=== PATIENT | male | born 1955 | race Caucasian/White ===

== ENCOUNTER 2022-04-19 02:31 | Inpatient (IN) | payer MEDICARE, MEDICAID, SELFPAY ==
[2022-04-19] VITALS (10 sets, daily range): BP systolic 101–131; BP diastolic 58–67; PULSE 83–112; RESP 16–20; TEMP 35.9–36.8; O2SAT 93–100; BMI 31.2
--- NOTE | ~2022-04-19 | CT_ITS ---
EXAMINATION: CTA chest abdomen pelvis DATE: 04/19/2022 09:05 INDICATION: Hemolytic anemia. TECHNIQUE: Computed tomographic angiography (CTA) of the chest, abdomen, and pelvis was performed wit h 100 mL Omnipaque-350 intravenous contrast. Automated exposure control and iterative reconstruction technique were employed. The dose-length product was 979.50 mGy-cm. Maximum intensity projection 3D-r econstructions of the aorta and other arteries were constructed by the technologist on a separate wor kstation. COMPARISON: None. FINDINGS: CHEST CTA: The lungs demonstrate smooth septal thickening, consistent with mild pulmonary edema. There is mild b ronchiectasis in the inferior lungs. There is mild atelectasis on the right. A calcified left lung no dule and calcified left hilar and mediastinal lymph nodes are consistent with old granulomatous disea se. There are a few pulmonary nodules measuring up to 4 mm, likely benign. No pleural effusion. The h eart size is normal. No pericardial effusion. There is mild aortic atherosclerosis. There is no pulmo nary embolus. There is moderate thoracic spondylosis. ABDOMEN AND PELVIS CTA: Calcifications in the liver and spleen are consistent with old granulomatous disease. There is mild s plenomegaly measuring 14.1 cm. The gallbladder, spleen, and pancreas are normal. There are cysts in t he kidneys measuring up to 14 mm on the right. There is diverticulosis of the colon without evidence of diverticulitis. There are no dilated loops of bowel. The appendix is normal. There are no patholog ically enlarged lymph nodes. There is no free intraperitoneal fluid. There is mild aortic atheroscler osis. There is no significant stenosis of celiac axis, superior mesenteric artery, the renal arteries , or inferior mesenteric artery. There is mild lumbar spondylosis. There is a benign bone island in L 5 vertebral body. IMPRESSION: 1. Mild pulmonary edema. 2. Mild aortic atherosclerosis. No aneurysm or dissection. 9 3. Mild splenomegaly. Reviewed, dictated and finalized at location A.
--- NOTE | ~2022-04-19 | XR_ITS ---
EXAMINATION: XR chest 2V DATE: 04/19/2022 09:31 INDICATION: Acute anemia TECHNIQUE: PA and lateral views of the chest are obtained. COMPARISON: None available FINDINGS: There are minimal interstitial opacities of the lungs. No pleural effusion or pneumothorax. The cardiomediastinal silhouette is normal. There is moderate thoracic spondylosis. IMPRESSION: 1. Mild pulmonary edema. Reviewed, dictated and finalized at location B. IMPRESSION: 1. Mild pulmonary edema.
--- NOTE | ~2022-04-19 | XR_ITS ---
EXAMINATION: XR chest 1V portable DATE: 04/24/2022 08:36 INDICATION: Pulmonary edema. TECHNIQUE: A single frontal view of the chest was obtained. COMPARISON: Chest 2 views 04/19/2022, chest CT 04/19/2022 FINDINGS: A calcified left lung nodule and calcified left hilar lymph nodes are consistent with old g ranulomatous disease. No pleural effusion or pneumothorax. The heart size is normal. IMPRESSION: 1. No acute cardiopulmonary disease. Reviewed, dictated and finalized at location A.
--- NOTE | ~2022-04-19 | US_ITS ---
EXAMINATION: US abdomen limited DATE: 04/19/2022 09:36 INDICATION: Right upper quadrant pain TECHNIQUE: Multiple grayscale and Doppler ultrasound images of the abdomen were obtained. COMPARISON: CT from today FINDINGS: The head, body, and tail of the pancreas are normal. The liver demonstrates increased echog enicity, heterogenous echotexture, and decreased through transmission. No surface nodularity. Normal hepatopetal flow in the main portal vein. The gallbladder is normal with no abnormal wall thickening, pericholecystic fluid or stones. The normal common bile duct measures 4 mm. There was no sonographic Hampton sign. IMPRESSION: 1. Diffuse hepatic steatosis. Reviewed, dictated and finalized at location B.
--- NOTE | 2022-04-19 02:20 | ADMGEN ---
This patient, Zheng Martinez, was admitted to [facility] Surg Room 301-01. Patient/family oriented to hospital policies and general routines including ID bracelet, bed and alarms, visiting hours, pain management, procedures, bathroom and other care routines, personal items, smoking policy, room service/diet, and visiting hours. Information on how to activate the Rapid Response Team has been discussed. Patient/Family are encouraged to report perceived risks to care and to ask questions if they do not understand what they are told or what they should do.
--- NOTE | 2022-04-19 02:33 | ECG_ITS ---
Measurements Intervals [place] Rate: 100 P: 15 WA: 176 QRS: -15 QRSD: 108 T: 74 QT: 313 QTc: 405 Interpretive Statements SINUS TACHYCARDIA NONSPECIFIC T-WAVE ABNORMALITY- DIFFUSE LEADS BORDERLINE ECG NO PREVIOUS ECG AVAILABLE FOR COMPARISON Electronically Signed On 04-19-2022 20:49:28 CDT by Jovani Holbrook D.O.
[2022-04-19 03:49] LABS: Immature Reticulocyte Fraction 13.2 % (3.0-15.9); Reticulocyte Percent 2.71 % (0.7-4.3); Reticulocytes Absolute 0.05 B/L (32.2-175.7)
[2022-04-19 04:00] LABS: Alanine Aminotransferase 42 U/L (6-50); Albumin Level 3.6 g/dL (3.5-5.1); Alkaline Phosphatase 38 U/L (38-126); Anion Gap 10 mmol/L (8-16); Aspartate Amino Transferase 80 U/L (17-59); Bilirubin,Total 6.5 mg/dL (0.2-1.3); Blood Urea Nitrogen 29 mg/dL (9-20); Calcium 9.3 mg/dL (8.4-10.2); Carbon Dioxide 21 mmol/L (22-30); Chloride 106 mmol/L (98-107); Estimated CRCL calculation 66 ml/min; Estimated Glomerular Filt Rate > 60; Glucose 220 mg/dL (65-110); Lactate Dehydrogenase 924 U/L (120-246); Potassium 3.7 mmol/L (3.4-5.0); Sodium 137 mmol/L (137-145)
[2022-04-19 04:01] LABS: INR 1.4; Prothrombin Time 16.5 Seconds (11.1-14.7)
[2022-04-19 04:06] LABS: Transferrin 173 mg/dL (206-381)
[2022-04-19 04:38] LABS: Add Urine Microscopic? YES; Appearance Urine Turbid (Clear); Bilirubin Urine 1+ (Negative); Blood Urine 1+ (Negative); Color Urine Brown (Yellow); Glucose Urine UA Trace mg/dL (Negative); Ketones Urine Trace mg/dL (Negative); Leukocyte Esterase Ur Negative LEU/UL (Negative); Nitrate Urine Positive (Negative); Protein Urine Negative (Negative); pH Urine 5.5 (5.0-9.0)
[2022-04-19 04:40] LABS: Bacteria Urine Trace /hpf; Mucus Urine Rare /lpf
[2022-04-19 04:47] LABS: Iron 241 ug/dL (49-181)
[2022-04-19 04:56] LABS: Percent Iron Saturation 88 % (20-50)
[2022-04-19 06:22] LABS: Ferritin > 2000.00 ng/mL (11.1-264)
[2022-04-19] MEDS: hydroCHLOROthiazide 25 MG TABLET PO (08:22)
[2022-04-19] MEDS: FENOFIBRATE 160 MG TABLET PO (08:22)
[2022-04-19] MEDS: METOPROLOL TARTRATE 50 MG TAB PO ×2 (08:23→21:27)
[2022-04-19] MEDS: lisinopriL 20 MG TABLET PO (08:23)
[2022-04-19 08:27] LABS: INR 1.4; Prothrombin Time 16.2 Seconds (11.1-14.7)
[2022-04-19 08:28] LABS: Partial Thromboplastin Time 29.5 SECONDS (22.3-36.8)
[2022-04-19 08:47] LABS: Basophils Absolute Auto 0.1 K/mm3 (0.0-0.1); Basophils Percent Auto 0.6 % (0.2-1.2); Eosinophils Absolute Auto 0.8 K/mm3 (0-0.3); Eosinophils Percent Auto 5.3 % (0-4.4); Immature Granulocyte Absolute 0.13 K/mm3 (0.00-0.031); Immature Granulocyte Percent A 0.9 % (0-0.5); Lymphocytes Absolute Auto 2.77 K/mm3 (0.9-3.2); Lymphocytes Percent Auto 18.2 % (18.3-44.2); Mean Corpuscular HGB Conc 36.4 g/dl (32-36); Mean Corpuscular Hemoglobin 32.7 pg (26-34); Mean Corpuscular Volume 89.8 fl (80-100); Mean Platelet Volume 11.7 fl (7.4-10.4); Monocytes Absolute Auto 0.7 K/mm3 (0.1-0.6); Monocytes Percent Auto 4.6 % (2.6-8.5); Neutrophils Absolute Auto 10.7 K/mm3 (1.3-6.7); Neutrophils Percent Auto 70.4 % (45.5-73.1); Platelet Count Result 196 k/mm3 (150-375); Red Blood Count 1.96 M/mm3 (4.6-6.20); Red Cell Distribution Width 14.6 % (11.5-14.5); White Blood Count 15.2 K/mm3 (4.5-10.0)
[2022-04-19 08:52] LABS: Hematocrit 17.6 % (42.0-52.0); Hemoglobin 6.4 g/dL (14.0-18.0)
[2022-04-19 09:58] LABS: Hepatitis B Surface Antigen Negative (Negative)
[2022-04-19 10:00] LABS: HAV RESULT Negative (Negative); Hepatitis B Core IgM Result Negative (Negative)
--- NOTE | 2022-04-19 10:11 | PM.IMHP ---
H&P: HPI History of Present Illness Date/Time: 04/19/22 0830 Chief Complaint: Blood in urine and yellow skin, transferred from outside hospital concerns for hemolytic anemia Narrative: This 66-year-old male patient with significant past medical history of hypertension, hyperlipidemia, nephrolithiasis was transferred from an outside facility to our hospital throughout the evening hours with complaints of a potential acute hemolytic anemia. Pt. reports that on , now 4 days ago, he had a fever and chills during the night hours and then noticed bright red blood in his urine for three days. Only yesterday did he start to notice a yellowing of his skin. He presented to the ER at [facility] and was evaluated with findings of an acute UTI with WBC count of 18.3 as well as Hgb of 8.3, lactic acid of 3.38, procalcitonin of 2.[address] of the abdomen and pelvis that was performed there showed no acute findings except for mild fatty liver. His bilirubin, however, was noted to be 9.3, raising concern for a possible Acute Hemolytic Anemia. He was transferred to our facility for continued evaluation, treatment and development of definitive POC with Dr. Malave. He was treated at outside facility with Rocephin and Levaquin. Currently he denies any pain, but his repeat CBC and Bilirubin returned w/Hgb of 6.4 and Bilirubin of 6.5 with LDH of 924, and D-dimer 2.3. Haptoglobin is still pending and Retic count is low. Dr. Malave is consulted and CTA of Chest, abdomen and pelvis is ordered as is US of RUQ. Patient currently denies any chest pain, dyspnea, nausea, vomiting, diarrhea, urinary symptoms or complaints of headache, dizziness or lightheadedness. Review of Systems Review of Systems: All systems reviewed & are unremarkable except as noted in HPI and below PMFSH Past Medical History Medical History (Updated 04/19/22 @ 10:49 by TITUS Barron) Hypertension Hypertriglyceridemia Nephrolithiasis Family History Family History Father Heart attack Hypertension Mother Heart attack Father No problems noted. Social History Social History Smoking status: Never smoker Alcohol intake: current Drinks per week: 12 Substance use: never Spiritual care concerns: No Meds Home Medications and Allergies Home Medications Medication Instructions Recorded Confirmed Type fenofibrate 160 mg tablet 160 mg PO DAILY 04/19/22 04/19/22 History lisinopril 20 1 tablet PO DAILY 04/19/22 04/19/22 History mg-hydrochlorothiazide 25 mg tablet metoprolol tartrate 100 mg tablet 50 mg PO BID 04/19/22 04/19/22 History Allergies Allergy/AdvReac Type Severity Reaction Status Date / Time No Known Allergies Allergy Verified 04/19/22 03:28 Vital Signs Vital Signs - 24 hr 04/19/22 02:31 04/19/22 08:00 04/19/22 08:23 Temperature 98.2 F Pulse Rate 108 H 108 H Respiratory Rate 16 Blood Pressure 129/64 Pulse Oximetry 100 Oxygen Delivery Room Air Exam Const: General: comfortable and no acute distress Other: Obese male patient, sitting on the side of his bed at this time in no acute distress. HENMT: General nose exam: Normal nares present and no epistaxis Mouth: Yes moist mucous membranes Eyes: Sclera: scleral abnormality diffuse (Icterus noted.) Pupils: Equal, round and reactive pupils present EOM: EOMs intact bilaterally Neck: Neck: supple and no JVD Lymphatic: lymphadenopathy not noted Chest: Other: Not tender to palpation. Resp: Effort & Inspection: normal respiratory effort Auscultation: clear to auscultation bilaterally Cardio: Rate: tachycardic Rhythm: regular rhythm Heart sounds: no gallops, no murmurs and no rubs GI: Inspection: non-distended GI Palp: Yes Soft to palpation, No Tenderness to palpation present (GI), No Guarding due to palpation present (GI) an
[2022-04-19 10:17] LABS: Mean Corpuscular HGB Conc 36.1 g/dl (32-36); Mean Corpuscular Volume 88.8 fl (80-100); Mean Platelet Volume 11.4 fl (7.4-10.4); Platelet Count Result 199 k/mm3 (150-375); Red Blood Count 1.78 M/mm3 (4.6-6.20); Red Cell Distribution Width 15.3 % (11.5-14.5); White Blood Count 15.3 K/mm3 (4.5-10.0)
[2022-04-19 10:29] LABS: Hemoglobin 5.7 g/dL (14.0-18.0)
[2022-04-19 10:30] LABS: Hematocrit 15.8 % (42.0-52.0)
[2022-04-19 10:32] LABS: Hepatitis C Virus Antibody Negative (Negative)
[2022-04-19 11:06] LABS: Bilirubin Indirect 4.4 mg/dL (0-1.1)
[2022-04-19] MEDS: SODIUM CHLORIDE 0.9% IV 250 ML 30 ML IV CONT (11:33)
--- NOTE | 2022-04-19 12:37 | PDONCCN ---
HPI - Date of Consult Date/Time: 04/19/22 12:37 Requesting Physician: TITUS Barron Primary Care Provider: UNKNOWN,DOCTOR - Consult Narrative Reason for consult: Hemolytic anemia Narrative: Zheng Martinez is a 66 year old male with history of kidney stone 15 years ago transferred from [facility] where he came in with for tiredness and fatigue started a day before admission with some jaundice. He was having some intermittent hematuria for last couple of days which he thought was due to the kidney stone history. His hemoglobin was 8 at outside hospital with elevated bilirubin of 9. We decided to transfer him here due to hemolytic anemia and worsening of his symptoms. CT scan chest abdomen and pelvis showed mild pulmonary edema with mild splenomegaly. Abdominal ultrasound showed diffuse hepatic steatosis. Labs showed hemoglobin of 6.4 now dropped to 5.7. He is still have hematuria. Other labs showed elevated WBC count of 15.2 and normal platelet of 139391. Neutrophil was normal at 70%. Reticulocyte count % was 2.71. D-dimer was elevated at 2.3. Iron level was elevated at 240 once a saturation of 88%. LDH was high at 924 with elevated total bilirubin of 6.4 and indirect bilirubin of 4.4. Review of Systems - Review of Systems All systems reviewed & are unremarkable except as noted in HPI and [facility] Medical History: Medical History (Last Updated 04/19/22 @ 10:28 by TITUS Barron) Hypertension Hypertriglyceridemia Nephrolithiasis Family History: Family History (Last Reviewed 04/19/22 @ 10:21 by TITUS Barron) Father Heart attack Hypertension Mother Heart attack Father No problems noted. - Social History Social History: Social History (Last Reviewed 04/19/22 @ 10:21 by TITUS Barron) Alcohol Use: Alcohol intake: current Drinks per week: 12 Substance Use: Substance use: never Others: Spiritual care concerns: No Smoking Status: Smoking status: Never smoker Exam - Vital Signs Vital Signs - 24 hr 04/19/22 02:31 04/19/22 08:00 04/19/22 08:23 Temperature 36.8 C Pulse Rate 108 H 108 H Respiratory Rate 16 Blood Pressure 129/64 Pulse Oximetry 100 Oxygen Delivery Room Air 04/19/22 08:00 04/19/22 11:30 04/19/22 11:45 Temperature 36.4 C 36.3 C L Pulse Rate 91 95 Respiratory Rate 16 16 Blood Pressure 102/58 L 104/64 Pulse Oximetry 98 100 Oxygen Delivery Room Air - Exam HEENT: EOMI, PERRLA, sclera icteric Neck: JVD. No: supple Lungs: clear to auscultation, normal air movement Heart: no murmurs, gallops, or rubs, regular rhythm, regular rate Abdomen: abdomen soft, non-distended, normal bowel sounds Integumentary: no abnormalities Neurological: normal speech Psychological: mental status NL - Lab Results Laboratory Last Values WBC 15.3 K/mm3 (4.5-10.0) H 04/19/22 09:48 RBC 1.78 M/mm3 (4.6-6.20) L 04/19/22 09:48 Hgb 5.7 g/dL (14.0-18.0) L* 04/19/22 09:48 Hct 15.8 % (42.0-52.0) L* 04/19/22 09:48 MCV 88.8 fl (80-100) 04/19/22 09:48 MCH 32.0 pg (26-34) 04/19/22 09:48 MCHC 36.1 g/dl (32-36) H 04/19/22 09:48 RDW 15.3 % (11.5-14.5) H 04/19/22 09:48 Plt Count 199 k/mm3 (150-375) 04/19/22 09:48 MPV 11.4 fl (7.4-10.4) H 04/19/22 09:48 Immature Gran % (Auto) 0.9 % (0-0.5) H 04/19/22 03:37 Neut % (Auto) 70.4 % (45.5-73.1) 04/19/22 03:37 Lymph % (Auto) 18.2 % (18.3-44.2) L 04/19/22 03:37 Mcduffie % (Auto) 4.6 % (2.6-8.5) 04/19/22 03:37 Eos % (Auto) 5.3 % (0-4.4) H 04/19/22 03:37 Baso % (Auto) 0.6 % (0.2-1.2) 04/19/22 03:37 Lymph # (Auto) 2.77 K/mm3 (0.9-3.2) 04/19/22 03:37 Mcduffie # (Auto) 0.7 K/mm3 (0.1-0.6) H 04/19/22 03:37 Eos # (Auto) 0.8 K/mm3 (0-0.3) H 04/19/22 03:37 Baso # (Auto) 0.1 K/mm3 (0.0-0.1) 04/19/22 03:37
--- NOTE | 2022-04-19 12:47 | PC.NURSE ---
Spoke with Anai regarding Dr. Malave's recommendation. Dr. Malave only wants 1 unit of packed RBC to be given. The second unit will be discontinued per Dr. Malave's orders.
[2022-04-19] MEDS: methylPREDNISolone SOD SUCC 125 MG VIAL IV PUSH ×2 (15:25→21:27)
--- NOTE | 2022-04-19 16:05 | WPDURCON ---
Assessment and Plan Assessment and plan (1) UTI (urinary tract infection): Code(s): N39.0 - Urinary tract infection, site not specified Status: Acute Assessment and Plan: Would recommend treatment with culture appropriate antibiotics if cultures are positive. UA is abnormal at this time but patient is otherwise asymptomatic other than visible gross hematuria in his urinal at the bedside. (2) Gross hematuria: Code(s): R31.0 - Gross hematuria Status: Acute Assessment and Plan: CT urologically negative. PSA normal per patient in 01/27, will repeat today. Follow up with urology for a cystoscopy after discharge for further evaluation. Likely related to a UTI or BPH, no further evaluation needed at this time. No need for CBI, push fluids. Urology Consult Note HPI Date Seen: 04/19/22 Time Seen: 16:06 Requesting Physician: TITUS Barron Primary Care Provider: UNKNOWN,DOCTOR Consult Narrative Reason for consult: Gross Hematuria Narrative: Zheng Martinez is a 66 year old male who was transferred to [place] from an outside hospital near his home in [place], [place] for evaluation of possible acute hemolytic anemia. He was also found to have gross hematuria and c/o chills and fever when he arrived at the ER there before his transfer. He denies frequency, urgency, straining to urinate, slow stream, clots of blood in his urine, dysuria, flank pain, abdominal pain or urine malodor. He states this hasn't happened before to him, but he does have a hisotry of kidney stones and has had an ESWL for this in the past with a Urologist in [place] about [address] scan of his chest, abdomen and pelvis show only renal cysts, but is otherwise normal urologically. His UA is suggestive of a UTI, urine and blood cultures are pending at this time. He is afebrile, WBC is elevated at 15.3 and creatinine is 1.10. He was given several doses of antibiotics in the ER before transfer. He denies injury to his pelvis recently and states his most recent PSA in 01/27 at his PCP was normal. He had a HUGO in the ER as well which was normal per the patient. He denies treatment for BPH in the past or UTI's. Review of Systems Cardiovascular: Cardiovascular: Denies chest pain Respiratory: Respiratory: Reports no additional respiratory complaints Gastrointestinal: Gastrointestinal: Denies abdominal pain, Denies nausea and Denies vomiting Genitourinary: Genitourinary: Reports hematuria, Denies dysuria, Denies flank pain, Denies urinary frequency, Denies urinary hesitancy, Denies urinary incontinence and Denies urinary urgency PMFSH Past Medical History Medical History Hypertension Hypertriglyceridemia Nephrolithiasis Family History Family History Father Heart attack Hypertension Mother Heart attack Father No problems noted. Social History Social History Smoking status: Never smoker Alcohol intake: current Drinks per week: 12 Substance use: never Spiritual care concerns: No Meds Home Medications and Allergies Home Medications Medication Instructions Recorded Confirmed Type fenofibrate 160 mg tablet 160 mg PO DAILY 04/19/22 04/19/22 History lisinopril 20 1 tablet PO DAILY 04/19/22 04/19/22 History mg-hydrochlorothiazide 25 mg tablet metoprolol tartrate 100 mg tablet 50 mg PO BID 04/19/22 04/19/22 History Allergies Allergy/AdvReac Type Severity Reaction Status Date / Time No Known Allergies Allergy Verified 04/19/22 03:28 Vital Signs Vital Signs - 24 hr 04/19/22 02:31 04/19/22 08:00 04/19/22 08:23 Temperature 98.2 F Pulse Rate 108 H 108 H Respiratory Rate 16 Blood Pressure 129/64 Pulse Oximetry 100 Oxygen Delivery Room Air 04/19/22 08:00 04/19/22 11:30 04/19/22
--- NOTE | 2022-04-19 16:41 | PC.NURSE ---
Fisheries Manager called Dr. Malave asking if an H&H needed to be redrawn. H&H to be drawn in [address] Malave stated if hemoglobin is less than 6 hang 1 unit of blood.
[2022-04-19 17:31] LABS: Prostate Specific Antigen 0.4 ng/mL (< OR = 4.0)
[2022-04-19 21:50] LABS: Hemoglobin 6.2 g/dL (14.0-18.0)
[2022-04-19 21:51] LABS: Hematocrit 17.3 % (42.0-52.0)
[2022-04-20] VITALS (12 sets, daily range): BP systolic 119–130; BP diastolic 60–86; PULSE 75–112; RESP 18; TEMP 36.1–36.6; O2SAT 98–100
[2022-04-20] MEDS: methylPREDNISolone SOD SUCC 125 MG VIAL IV PUSH ×3 (05:59→21:10)
[2022-04-20 06:56] LABS: Basophils Absolute Auto 0.1 K/mm3 (0.0-0.1); Basophils Percent Auto 0.5 % (0.2-1.2); Eosinophils Absolute Auto 0.4 K/mm3 (0-0.3); Eosinophils Percent Auto 1.7 % (0-4.4); Immature Granulocyte Absolute 0.45 K/mm3 (0.00-0.031); Immature Granulocyte Percent A 1.9 % (0-0.5); Mean Corpuscular HGB Conc 35.4 g/dl (32-36); Mean Corpuscular Hemoglobin 31.1 pg (26-34); Mean Corpuscular Volume 87.8 fl (80-100); Mean Platelet Volume 12.1 fl (7.4-10.4); Monocytes Absolute Auto 0.9 K/mm3 (0.1-0.6); Monocytes Percent Auto 3.6 % (2.6-8.5); Neutrophils Absolute Auto 18.6 K/mm3 (1.3-6.7); Neutrophils Percent Auto 77.3 % (45.5-73.1); Platelet Count Result 222 k/mm3 (150-375); Red Cell Distribution Width 15.8 % (11.5-14.5)
[2022-04-20 07:15] LABS: Alanine Aminotransferase 56 U/L (6-50); Alkaline Phosphatase 40 U/L (38-126); Anion Gap 12 mmol/L (8-16); Aspartate Amino Transferase 90 U/L (17-59); Bilirubin,Total 8.4 mg/dL (0.2-1.3); Blood Urea Nitrogen 50 mg/dL (9-20); Calcium 9.3 mg/dL (8.4-10.2); Carbon Dioxide 22 mmol/L (22-30); Chloride 103 mmol/L (98-107); Estimated CRCL calculation 56 ml/min; Estimated Glomerular Filt Rate 55; Glucose 396 mg/dL (65-110); Magnesium 2.2 mg/dL (1.6-2.3); Potassium 4.2 mmol/L (3.4-5.0); Sodium 137 mmol/L (137-145)
[2022-04-20 07:16] LABS: Hemoglobin 5.6 g/dL (14.0-18.0)
[2022-04-20 07:19] LABS: Hematocrit 15.8 % (42.0-52.0)
[2022-04-20 07:20] LABS: Platelet Estimate Adequate (Adequate)
[2022-04-20 07:21] LABS: Hypochromasia 1+ (NORMAL); Microcytosis 1+ (NORMAL)
[2022-04-20] MEDS: PANTOPRAZOLE SOD SESQUIHYDRATE 20 MG TAB PO (08:16)
[2022-04-20] MEDS: METOPROLOL TARTRATE 50 MG TAB PO ×2 (08:16→21:09)
[2022-04-20] MEDS: lisinopriL 20 MG TABLET PO (08:17)
[2022-04-20] MEDS: hydroCHLOROthiazide 25 MG TABLET PO (08:17)
[2022-04-20] MEDS: FOLIC ACID 1 MG TABLET PO (08:17)
[2022-04-20] MEDS: SODIUM CHLORIDE 0.9% IV 250 ML 30 ML (10:12)
--- NOTE | 2022-04-20 11:48 | WPDUROPN2 ---
Progress Note: A&P Assessment and Plan (1) Gross hematuria: Code(s): R31.0 - Gross hematuria Status: Acute Assessment and Plan: Improving, etiology unknown at this time, but likely BPH. He has a normal CT scan, PSA is 0.4, urine culture is pending and he is asymptomatic for prostatitis. Follow up with urologist after discharge for outpatient cysto. No further follow up needed at this time. Ok to discharge home when medically stable per urology. (2) UTI (urinary tract infection): Code(s): N39.0 - Urinary tract infection, site not specified Status: Acute Assessment and Plan: Urine cultures pending, I recommend oral antibiotics when culture results if indicated. Subjective Subjective Date/Time Seen: 04/20/22 11:48 Patient's H&H continues to decline, he is receiving a unit of blood today. He appears to be doing ok considering his overall health, he is sitting up in bed but his Jaundice appears slightly worse today. His urine is clearing up a bit to a site technician pink, although the urine culture is still pending. His PSA is 0.4 which is great for him. CT scan was urologically not concerning. Review of Systems Cardiovascular: Cardiovascular: Denies chest pain Gastrointestinal: Gastrointestinal: Denies abdominal pain, Denies nausea and Denies vomiting Genitourinary: Genitourinary: Reports hematuria, Denies genital pain, Denies dysuria, Denies flank pain, Denies urinary frequency, Denies urinary hesitancy, Denies urinary incontinence and Denies urinary urgency Exam Const: General: comfortable and alert Resp: Effort & Inspection: normal respiratory effort Cardio: Rate: regular rate GI: GI Palp: Yes Soft to palpation and No Tenderness to palpation present (GI) : General: Yes no CVA tenderness Extrem: Right upper extremity: no edema Left upper extremity: no edema Objective Data Vital Signs Vital Signs: Vital Signs - 24 hr 04/19/22 12:45 04/19/22 13:45 04/19/22 16:00 Temperature 97.6 F 98.2 F 96.7 F L Pulse Rate 98 103 H 112 H Respiratory Rate 16 16 16 Blood Pressure 116/65 126/67 122/63 Pulse Oximetry 95 93 100 Oxygen Delivery 04/19/22 14:30 04/19/22 21:27 04/19/22 22:00 Temperature 97.5 F L 98.1 F Pulse Rate 100 108 H 83 Respiratory Rate 16 20 Blood Pressure 131/65 101/66 Pulse Oximetry 98 100 Oxygen Delivery 04/20/22 06:00 04/20/22 08:16 04/20/22 08:00 Temperature 97 F L Pulse Rate 93 112 H 112 H Respiratory Rate 18 Blood Pressure 126/78 Pulse Oximetry 98 Oxygen Delivery Room Air 04/20/22 10:04 04/20/22 10:23 Temperature 97.6 F 97.5 F L Pulse Rate 80 95 Respiratory Rate 18 18 Blood Pressure 128/65 127/86 Pulse Oximetry 99 98 Oxygen Delivery Intake/Output Intake/Output: Intake & Output 04/17/22 04/18/22 04/19/22 04/20/22 23:59 23:59 23:59 23:59 Intake Total 1940 790 Output Total 400 500 Balance 1540 290 Meds/Results Medications: Active Medications Generic Name Dose Route Start Last Admin Trade Name Freq PRN Reason Stop Dose Admin Acetaminophen 650 mg 04/19/22 02:31 Acetaminophen 325 Mg Tablet PO Q4H PRN Mild Pain (1-3) or Fever Fenofibrate 160 mg 04/19/22 09:00 04/19/22 08:22 Fenofibrate 160 Mg Tablet PO 160 mg DAILY NU Administration Folic Acid 1 mg 04/20/22 09:00 04/20/22 08:17 Folic Acid 1 Mg Tablet PO 1 mg DAILY NU Administration Hydrochlorothiazide 25 mg 04/19/22 09:00 04/20/22 08:17 Hydrochlorothiazide 25 Mg Tablet PO 25 mg QAM NU Administration Ceftriaxone Sodium/Dextrose 1 gm in 50 mls @ 100 mls/hr 04/20/22 10:00 04/20/22 09:40 Rocephin 1 Gm/D5w 50 Ml IVPB Infused Q24H NU Infusion Lisinopril 20 mg 04/19/22 09:00 04/20/22 08:17 Lisinopril 20 Mg Tablet PO 20 mg QAM NU Administration Magnesium Hydroxide 30 ml 04/19/22 02:31 Magnesium Hydroxide Susp 30 Ml Udc PO DAILY PRN Constipation Methylp
--- NOTE | 2022-04-20 12:27 | PM.IMPN ---
Progress Note: A&P Assessment and Plan (1) Acute hemolytic anemia: Code(s): D59.9 - Acquired hemolytic anemia, unspecified Status: Acute Assessment and Plan: -as evidenced by hyperbilirubinemia, acute anemia with new hemoglobin level of 5.7, LDH of 924 and no jef or overt bleeding and in setting of acute UTI. - Dr. Malave is consulted and we are asking him to Co-manage. - Transfused unit PRBC's last evening for Hgb of 5.7. After transfusion, the Hgb was 6.2, but dropped again to 5.6 this morning, so he will receive another unit of PRBC's. - CTA of chest abdomen and pelvis note splenomegaly. - Continue Solumedrol dosing. (2) UTI (urinary tract infection): Code(s): N39.0 - Urinary tract infection, site not specified Status: Acute Assessment and Plan: - As demonstrated on UA. - Culture pending. - Continue to monitor. - Continue Rocephin daily pending culture results. - Urology agrees with plan of treating UTI and monitoring culture results. (3) Hypertension: Code(s): I10 - Essential (primary) hypertension Status: Chronic Assessment and Plan: - Continue home medications and monitor. Currently stable. (4) Hypertriglyceridemia: Code(s): E78.1 - Pure hyperglyceridemia Status: Chronic Assessment and Plan: - Currently with liver dysfunction, will hold fenofibrate. (5) Nephrolithiasis: Code(s): N20.0 - Calculus of kidney Status: Chronic Assessment and Plan: - History of only. Not currently problematic. Time Spent With Patient Time with patient: 15 - 25 minutes Subjective Date/time seen: 04/20/22 0900 This pt. was examined at the bedside today in interval assessment after being admitted to the hospital with Acute Hemolytic Anemia. He was transfused yesterday for a Hgb of 5.7, and after it was increased to 6.4. This AM it has again dropped back to 5.6. He will receive another unit of PRBC's today. In addition to the blood, The patient's bilirubin has increased fact 8.4 from 5.0. His AST and ALT are also her mid 90 in 56 respectively. This morning urine culture is pending and blood cultures preliminarily are negative x2. Urology was consulted for idea blood in the urine and advise them were no additional testing needed to be performed, and to continue the current antibiotics for his UTI coverage. In the interim Dr. Malave is covering for the hemolytic anemia and we will continue to follow his lead. Patient today has no complaints of pain, weakness, dyspnea, chest pain, nausea, vomiting, diarrhea, headache, lightheadedness or dizziness. He reports today that his urine has changed to a barnhart/orange bilirubin color. Review of Systems Review of Systems: All systems reviewed & are unremarkable except as noted in HPI and below Exam Const: General: comfortable and no acute distress Other: Obese male patient, sitting on the side of his bed at this time in no acute distress. HENMT: General nose exam: Normal nares present and no epistaxis Mouth: Yes moist mucous membranes Eyes: Sclera: scleral abnormality diffuse (Icterus noted.) Pupils: Equal, round and reactive pupils present EOM: EOMs intact bilaterally Neck: Neck: supple and no JVD Lymphatic: lymphadenopathy not noted Chest: Other: Not tender to palpation. Resp: Effort & Inspection: normal respiratory effort Auscultation: clear to auscultation bilaterally Cardio: Rate: regular rate Rhythm: regular rhythm Heart sounds: no gallops, no murmurs and no rubs GI: Inspection: non-distended GI Palp: Yes Firmness to palpation present (GI), No Tenderness to palpation present (GI) and No Guarding due to palpation present (GI) Auscultation: normal bowel sounds : Other: Freely voiding. Skin: General skin exam: No normal color (Jaundiced) and no rashes or lesions noted Lesions: no lesions noted Rashes: no rashes noted Wounds: no wounds Neuro: General: gait normal
[2022-04-20 14:57] LABS: Mean Corpuscular HGB Conc 36.2 g/dl (32-36); Mean Corpuscular Hemoglobin 31.6 pg (26-34); Mean Corpuscular Volume 87.4 fl (80-100); Platelet Count Result 236 k/mm3 (150-375); Red Blood Count 2.15 M/mm3 (4.6-6.20); Red Cell Distribution Width 15.5 % (11.5-14.5); White Blood Count 30.4 K/mm3 (4.5-10.0)
[2022-04-20 15:10] LABS: Hematocrit 18.8 % (42.0-52.0); Hemoglobin 6.8 g/dL (14.0-18.0)
[2022-04-21 06:23] VITALS: BP 120/63; PULSE 96; RESP 20; TEMP 36.5; O2SAT 97
[2022-04-21] MEDS: methylPREDNISolone SOD SUCC 125 MG VIAL IV PUSH ×3 (06:30→21:07)
[2022-04-21 06:46] LABS: Basophils Absolute Auto 0.1 K/mm3 (0.0-0.1); Basophils Percent Auto 0.3 % (0.2-1.2); Eosinophils Percent Auto 0.1 % (0-4.4); Immature Granulocyte Absolute 1.09 K/mm3 (0.00-0.031); Immature Granulocyte Percent A 3.3 % (0-0.5); Lymphocytes Absolute Auto 4.38 K/mm3 (0.9-3.2); Lymphocytes Percent Auto 13.3 % (18.3-44.2); Mean Corpuscular HGB Conc 36.9 g/dl (32-36); Mean Corpuscular Hemoglobin 31.7 pg (26-34); Mean Platelet Volume 12.4 fl (7.4-10.4); Monocytes Absolute Auto 1.5 K/mm3 (0.1-0.6); Monocytes Percent Auto 4.5 % (2.6-8.5); Neutrophils Absolute Auto 25.9 K/mm3 (1.3-6.7); Neutrophils Percent Auto 78.5 % (45.5-73.1); Nucleated Red Blood Cells Absolute Auto 0.1 K/mm3 (0.0-0.012); Nucleated Red Blood Cells Perc 0.2 % (0.0-0.2); Platelet Count Result 231 k/mm3 (150-375); Red Blood Count 1.86 M/mm3 (4.6-6.20); Red Cell Distribution Width 15.7 % (11.5-14.5)
[2022-04-21 06:55] LABS: Alanine Aminotransferase 65 U/L (6-50); Alkaline Phosphatase 67 U/L (38-126); Anion Gap 15 mmol/L (8-16); Aspartate Amino Transferase 64 U/L (17-59); Blood Urea Nitrogen 63 mg/dL (9-20); Calcium 9.6 mg/dL (8.4-10.2); Carbon Dioxide 21 mmol/L (22-30); Chloride 102 mmol/L (98-107); Estimated CRCL calculation 56 ml/min; Estimated Glomerular Filt Rate 55; Glucose 509 mg/dL (65-110); Magnesium 2.4 mg/dL (1.6-2.3); Potassium 4.1 mmol/L (3.4-5.0); Sodium 138 mmol/L (137-145)
[2022-04-21 07:02] LABS: Glucose Point of Care 482 mg/dl (65-105)
--- NOTE | 2022-04-21 07:53 | PM.IMPN ---
Progress Note: A&P Assessment and Plan (1) Acute hemolytic anemia: Code(s): D59.9 - Acquired hemolytic anemia, unspecified Status: Acute Assessment and Plan: evidence of hyperbilirubinemia, acute anemia with new hemoglobin level of 5.7, LDH of 924. Gross hematuria was noted upon admission of acute UTI. - Dr. Malave is consulted and appreciate recommendations - S/P 2 units PRBC since admission on 04/19 and 04/20. She distress transfusion given hemolytic anemia. - continue Solu-Medrol IV q.6 hours. Per hematology note patient will need to be transitioned to oral prednisone with slow taper upon discharge - CTA of chest abdomen and pelvis note splenomegaly. - 04/21/2022 H/H 5.9/16 and 5.4/14.7 (2) UTI (urinary tract infection): Qualifiers: Urinary tract infection type: acute pyelonephritis Qualified Code(s): N10 - Acute pyelonephritis Code(s): N39.0 - Urinary tract infection, site not specified Status: Acute Assessment and Plan: UA on 04/19 positive nitrates, negative leukocytes, 10-15 wbc's, trace bacteria. Patient was noted to have positive UA at outlying facility and was treated with antibiotics prior to transfer. Urine culture from outlying facility not available. - 04/19/2022 urine culture without growth. However patient was treated with antibiotics prior to transfer and was noted to be symptomatic. - Patient is afebrile. He does having increasing WBC but this is likely secondary to steroids. - Rocephin 1 g IV Q 24 hours started 04/19/2022, transition to oral cefdinir 300 mg p.o. b.i.d. to complete 10 days antibiotic therapy. antibiotic day 3 - 04/19/2022 blood cultures x2 negative to date - Urology agrees with plan of treating UTI and monitoring culture results. (3) Acute hyperglycemia: Code(s): R73.9 - Hyperglycemia, unspecified Status: Acute Assessment and Plan: blood glucose greater than 500 this a.m. 04/21/2022. fasting glucose 220 so on admission. he does endorse discussing diabetes with possible diagnosis with his PCP prior to admission - Patient is currently on a steroid therapy. - check A1c - Change to consistent carb diet - Accu-Cheks a.c. HS with aspart moderate scale sliding scale insulin - And start her Lantus 10 units subQ daily (4) Elevated d-dimer: Code(s): R79.89 - Other specified abnormal findings of blood chemistry Status: Acute Assessment and Plan: likely secondary to hemolytic anemia. - CTA chest negative for PE. - No concerns for DVT at this time (5) Leukocytosis: Code(s): D72.829 - Elevated white blood cell count, unspecified Status: Acute Assessment and Plan: WBC 33, neutrophil count 78.5. Patient diagnosed with UTI upon admission. - Patient is afebrile. leukocytosis is likely likely secondary to IV steroids (6) Hypertension: Qualifiers: Hypertension type: primary hypertension Qualified Code(s): I10 - Essential (primary) hypertension Code(s): I10 - Essential (primary) hypertension Status: Chronic Assessment and Plan: chronic, stable, vitals reviewed -Continue lisinopril 20 mg daily, metoprolol tartrate tartrate 50 mg b.i.d. and HCTZ 25 mg daily (7) Hepatic steatosis: Code(s): K76.0 - Fatty (change of) liver, not elsewhere classified Status: Chronic Assessment and Plan: noted on on the abdominal ultrasound, Moss versus alcohol liver disease, with mild transaminitis monitor. Avoid hepatotoxic agents bereavement counselor on alcohol avoidance (8) Hypertriglyceridemia: Code(s): E78.1 - Pure hyperglyceridemia Status: Chronic Assessment and Plan: chronic, patient has been on fenofibrate therapy at home now with mild transaminitis- although unlikely cause, will hold and resume fenofibrate at discharge. Plan code status: Full code Disposition: return home Time Spent With Patient Time with meagan
[2022-04-21 08:13] LABS: Hemoglobin 5.9 g/dL (14.0-18.0)
[2022-04-21 08:16] LABS: Anisocytosis 2+ (NORMAL); Microcytosis 1+ (NORMAL); Platelet Estimate Adequate (Adequate)
[2022-04-21] MEDS: SODIUM CHLORIDE 0.9% IV 1,000 ML 75 ML IV CONT (08:24)
[2022-04-21 08:25] VITALS: PULSE 104
[2022-04-21] MEDS: METOPROLOL TARTRATE 50 MG TAB PO ×2 (08:25→19:39)
[2022-04-21] MEDS: hydroCHLOROthiazide 25 MG TABLET PO (08:25)
[2022-04-21] MEDS: PANTOPRAZOLE SOD SESQUIHYDRATE 20 MG TAB PO (08:25)
[2022-04-21] MEDS: FOLIC ACID 1 MG TABLET PO (08:26)
[2022-04-21] MEDS: lisinopriL 20 MG TABLET PO (08:26)
[2022-04-21] MEDS: INSULIN ASPART (*BKC) 100 UNITS/ML 20 UNITS SUB-Q (08:30)
[2022-04-21] MEDS: INSULIN GLARGINE (*BKC) 100 UNITS/ML 10 UNITS SUB-Q (08:31)
[2022-04-21 09:14] LABS: Hemoglobin A1C 6.1 % (<5.7)
--- NOTE | 2022-04-21 09:14 | PC.NURSE ---
Spoke with Dr. Maalve concerning HB 5.9, no new orders. Do not give blood.
[2022-04-21 09:17] LABS: Spherocytes 1+ (NORMAL)
[2022-04-21 10:32] LABS: Red Blood Cell Folate 935 ng/mL RBC (>280)
[2022-04-21 11:04] LABS: Glucose Point of Care > 500 mg/dl (65-105)
[2022-04-21] MEDS: INSULIN ASPART (*BKC) 100 UNITS/ML 35 UNITS SUB-Q ×2 (11:17→16:27)
[2022-04-21 13:20] LABS: Hematocrit 14.7 % (42.0-52.0); Hemoglobin 5.4 g/dL (14.0-18.0)
[2022-04-21 14:07] VITALS: BP 112/62; PULSE 89; RESP 16; TEMP 36.5; O2SAT 97
[2022-04-21 14:26] LABS: Iron 291 ug/dL (49-181)
[2022-04-21 14:29] LABS: Lactate Dehydrogenase 748 U/L (120-246)
[2022-04-21 14:35] LABS: Percent Iron Saturation 94 % (20-50)
[2022-04-21 14:44] LABS: Haptoglobin <8 mg/dL (43-212)
[2022-04-21 15:38] LABS: Folic Acid 10.4 ng/mL (2.76->20)
[2022-04-21 16:05] LABS: Glucose Point of Care 414 mg/dl (65-105)
[2022-04-21 16:19] LABS: Ferritin > 2000.00 ng/mL (11.1-264)
--- NOTE | 2022-04-21 18:59 | WPDONCPN ---
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 Left noted. LDH is slowly going down. Clinically he is showing improvement with last jaundice and improvement in the urine color. Hemoglobin noted. B12 level came back normal. Iron studies are abnormal due to blood transfusion. Continue Solu-Medrol Q 8 hours for now. I am looking into the option of getting Rituxan treatment as well. We will try to minimize blood transfusion. Continue folic acid 1 mg daily. Check daily LDH. We will check bilirubin level in the morning. Hematuria. Urology input noted. Hematuria improving. - Time Spent With Patient Total time spent is greater than 50% in coordination of care (as documented) at patient's floor/unit and/or counseling patient: 15 - 25 minutes Subjective Interval history: Autoimmune hemolytic anemia Review of Systems - Review of Systems Patient started feeling better. Improvement in tiredness and fatigue and jaundice. Urine color also slowly improving. No other new complaint. Exam Vital signs: Temp Pulse Resp BP Pulse Ox O2 Del Method 36.5 C 89 16 112/62 97 Room Air 04/21/22 14:07 04/21/22 14:07 04/21/22 14:07 04/21/22 14:07 04/21/22 14:07 04/21/22 07:28 Narrative: Lungs are clear to auscultation bilaterally Cardiovascular regular rate rhythm no murmurs Abdomen soft nontender nondistended bowel sounds are positive Extremities no edema PN: Objective Data - Labs CBC & Chem 7: 04/21/22 13:09 04/21/22 05:42 Labs: Laboratory Results - last 24 hr 04/19/22 04/19/22 04/21/22 03:37 09:48 05:39 WBC RBC Hgb Hct MCV MCH MCHC RDW Plt Count MPV Immature Gran % (Auto) Neut % (Auto) Lymph % (Auto) [place] % (Auto) Eos % (Auto) Baso % (Auto) Lymph # (Auto) [place] # (Auto) Eos # (Auto) Baso # (Auto) Abs Immat Gran (auto) Absolute Neuts (auto) Absolute Nucleated RBC Nucleated RBC % Platelet Estimate Anisocytosis Microcytosis Spherocytes Haptoglobin <8 L Sodium Potassium Chloride Carbon Dioxide Anion Gap BUN Creatinine Estim Creat Clear Calc Estimated GFR Glucose POC Capillary Glucose Hemoglobin A1c 6.1 H Calcium Magnesium Iron TIBC % Saturation Ferritin Total Bilirubin AST ALT Alkaline Phosphatase Lactate Dehydrogenase Total Protein Albumin Vitamin B12 Folate RBC Folate 935 Hematocrit 18.8 Blood Type A Positive Antibody Screen Negative Crossmatch See Detail 04/21/22 04/21/22 04/21/22 05:42 05:42 07:00 WBC 33.0 H RBC 1.86 L Hgb 5.9 L* Hct 16.0 L* MCV 86.0 MCH 31.7 MCHC 36.9 H RDW 15.7 H Plt Count 231 MPV 12.4 H Immature Gran % (Auto) 3.3 H Neut % (Auto) 78.5 H Lymph % (Auto) 13.3 L [place] % (Auto) 4.5 Eos % (Auto) 0.1 Baso % (Auto) 0.3 Lymph # (Auto) 4.38 H [place] # (Auto) 1.5 H Eos # (Auto) 0.0 Baso # (Auto) 0.1 Abs Immat Gran (auto) 1.09 H Absolute Neuts (auto) 25.9 H Absolute Nucleated RBC 0.1 H Nucleated RBC % 0.2 Platelet Estimate Adequate Anisocytosis 2+ Microcytosis 1+ Spherocytes 1+ Haptoglobin Sodium 138 Potassium 4.1 Chloride 102 Carbon Dioxide 21 L Anion Gap 15 BUN 63 H D Creatinine 1.30 Estim Creat Clear Calc 56 Estimated GFR 55 L Glucose 509 H* POC Capillary Glucose 482 H Hemoglobin A1c Calcium 9.6 Magnesium 2.4 H Iron TIBC % Saturation Ferritin Total Bilirubin 6.0 H AST 64 H ALT 65 H Alkaline Phosphatase 67 Lactate Dehydrogenase Total Protein 7.0 Albumin 4.0 Vitamin B12 Folate RBC Folate Hematocrit Blood Type Antibody Screen Crossmatch 04/21/22 04/21/22 04/21/22 11:00 13:09 13:47 WBC RBC
[2022-04-21 19:39] VITALS: PULSE 68
[2022-04-21 19:48] LABS: Bilirubin Indirect 2.4 mg/dL (0-1.1); Lactate Dehydrogenase 742 U/L (120-246)
[2022-04-21 21:24] LABS: Glucose Point of Care 384 mg/dl (65-105)
[2022-04-21 22:00] VITALS: BP 104/67; PULSE 96; RESP 20; TEMP 36.6; O2SAT 98
[2022-04-22] VITALS (9 sets, daily range): BP systolic 105–127; BP diastolic 55–71; PULSE 73–95; RESP 18–20; TEMP 36.2–36.9; O2SAT 95–100
[2022-04-22] MEDS: methylPREDNISolone SOD SUCC 125 MG VIAL IV PUSH ×3 (06:24→19:55)
[2022-04-22 06:29] LABS: Glucose Point of Care 364 mg/dl (65-105)
[2022-04-22 06:33] LABS: Mean Corpuscular HGB Conc 36.1 g/dl (32-36); Mean Corpuscular Hemoglobin 31.1 pg (26-34); Mean Corpuscular Volume 86.2 fl (80-100); Mean Platelet Volume 12.2 fl (7.4-10.4); Platelet Count Result 234 k/mm3 (150-375); Red Blood Count 1.67 M/mm3 (4.6-6.20); Red Cell Distribution Width 16.2 % (11.5-14.5); White Blood Count 36.9 K/mm3 (4.5-10.0)
[2022-04-22 06:40] LABS: Alanine Aminotransferase 59 U/L (6-50); Albumin Level 3.6 g/dL (3.5-5.1); Alkaline Phosphatase 79 U/L (38-126); Anion Gap 16 mmol/L (8-16); Aspartate Amino Transferase 44 U/L (17-59); Bilirubin,Total 3.3 mg/dL (0.2-1.3); Blood Urea Nitrogen 59 mg/dL (9-20); Calcium 9.3 mg/dL (8.4-10.2); Carbon Dioxide 24 mmol/L (22-30); Chloride 102 mmol/L (98-107); Estimated CRCL calculation 61 ml/min; Estimated Glomerular Filt Rate > 60; Glucose 352 mg/dL (65-110); Potassium 3.5 mmol/L (3.4-5.0); Sodium 142 mmol/L (137-145)
[2022-04-22 07:47] LABS: Hematocrit 14.4 % (42.0-52.0); Hemoglobin 5.2 g/dL (14.0-18.0)
[2022-04-22 07:53] LABS: Glucose Point of Care 344 mg/dl (65-105)
[2022-04-22 08:01] LABS: Anisocytosis 2+ (NORMAL); Band Neutrophils Percent 6 % (0-6); Hypochromasia 2+ (NORMAL); Lymphocytes Absolute Manual 6.64 K/mm3 (1.1-4.5); Metamyelocytes Percent 2 %; Microcytosis 2+ (NORMAL); Monocytes Absolute Manual 2.58 K/mm3 (0.1-0.90); Monocytes Percent Manual 7 % (3-9); Neutrophils Absolute Manual 26.93 K/mm3 (1.3-6.7); Neutrophils Percent Manual 67 % (46-73); Platelet Estimate Adequate (Adequate); Total Cells Counted 100
[2022-04-22] MEDS: CEFDINIR 300 MG CAPSULE PO ×2 (08:37→19:55)
[2022-04-22] MEDS: PANTOPRAZOLE SOD SESQUIHYDRATE 20 MG TAB PO (08:37)
[2022-04-22] MEDS: hydroCHLOROthiazide 25 MG TABLET PO (08:37)
[2022-04-22] MEDS: lisinopriL 20 MG TABLET PO (08:37)
[2022-04-22] MEDS: FOLIC ACID 1 MG TABLET PO (08:37)
[2022-04-22] MEDS: METOPROLOL TARTRATE 50 MG TAB PO ×2 (08:37→19:55)
[2022-04-22] MEDS: INSULIN GLARGINE (*BKC) 100 UNITS/ML 10 UNITS SUB-Q (08:38)
[2022-04-22] MEDS: INSULIN ASPART (*BKC) 100 UNITS/ML SUB-Q ×2 (08:38→17:18)
[2022-04-22] MEDS: SODIUM CHLORIDE 0.9% IV 250 ML 30 ML IV CONT (11:02)
[2022-04-22 11:29] LABS: Glucose Point of Care 426 mg/dl (65-105)
[2022-04-22] MEDS: INSULIN ASPART (*BKC) 100 UNITS/ML 35 UNITS SUB-Q (11:53)
--- NOTE | 2022-04-22 14:11 | PM.IMPN ---
Progress Note: A&P Assessment and Plan (1) Acute hemolytic anemia: Code(s): D59.9 - Acquired hemolytic anemia, unspecified Status: Acute Assessment and Plan: evidence of hyperbilirubinemia, acute anemia with new hemoglobin level of 5.7, LDH of 924. Gross hematuria was noted upon admission of acute UTI. - Dr. Malave is consulted and appreciate recommendations - S/P 2 units PRBC since admission on 04/19 and 04/20. She distress transfusion given hemolytic anemia. - continue Solu-Medrol IV q.6 hours. Per hematology note patient will need to be transitioned to oral prednisone with slow taper upon discharge - CTA of chest abdomen and pelvis note splenomegaly. - 04/21/2022 H/H 5.9/16 and 5.4/14.7 - 04/22/22 H/H 5.2/14.4. LDH 742, Tbili 3.3. Asymptomatic. Judicious blood transfusions per Hematology/Oncology, continue IV steroids. (2) UTI (urinary tract infection): Qualifiers: Urinary tract infection type: acute pyelonephritis Qualified Code(s): N10 - Acute pyelonephritis Code(s): N39.0 - Urinary tract infection, site not specified Status: Acute Assessment and Plan: UA on 04/19 positive nitrates, negative leukocytes, 10-15 wbc's, trace bacteria. Patient was noted to have positive UA at outlying facility and was treated with antibiotics prior to transfer. Urine culture from outlying facility not available. - 04/19/2022 urine culture without growth. However patient was treated with antibiotics prior to transfer and was noted to be symptomatic. - Patient is afebrile. He does having increasing WBC but this is likely secondary to steroids. - Rocephin 1 g IV Q 24 hours started 04/19/2022, transition to oral cefdinir 300 mg p.o. b.i.d. to complete 10 days antibiotic therapy. antibiotic day 3 - 04/19/2022 blood cultures x2 negative to date - Urology agrees with plan of treating UTI and monitoring culture results. 04/22/22 Continue cefdinir 300 mg PO BID x7 days, for total 10-day course. (antibiotic day 4) (3) Acute hyperglycemia: Code(s): R73.9 - Hyperglycemia, unspecified Status: Acute Assessment and Plan: blood glucose greater than 500 this a.m. 04/21/2022. fasting glucose 220 so on admission. he does endorse discussing diabetes with possible diagnosis with his PCP prior to admission - Patient is currently on a steroid therapy. - check A1c - Change to consistent carb diet - Accu-Cheks a.c. HS with aspart moderate scale sliding scale insulin 04/22/22 POC glucose 348 to 426, given 35 units aspart with lunch, Increase Lantus 15 units subQ daily, increase to high-dose insulin scale. A1c 5.7%. Patient will likely need metformin or sulfonylureas at discharge while on steroids (long-taper expected). (4) Elevated d-dimer: Code(s): R79.89 - Other specified abnormal findings of blood chemistry Status: Acute Assessment and Plan: likely secondary to hemolytic anemia. - CTA chest negative for PE. - No concerns for DVT at this time (5) Leukocytosis: Code(s): D72.829 - Elevated white blood cell count, unspecified Status: Acute Assessment and Plan: WBC 33, neutrophil count 78.5. Patient diagnosed with UTI upon admission. - Patient is afebrile. leukocytosis is likely likely secondary to IV steroids - 04/19/22 peripheral smear with significant RBC fragment/debris 04/22/22 WBC 39. Afebrile. Asymptomatic. Continue to trend and monitor for acute infection. (6) Hypertension: Qualifiers: Hypertension type: primary hypertension Qualified Code(s): I10 - Essential (primary) hypertension Code(s): I10 - Essential (primary) hypertension Status: Chronic Assessment and Plan: chronic, stable, vitals reviewed -Continue lisinopril 20 mg daily, metoprolol tartrate tartrate 50 mg b.i.d. and HCTZ 25 mg daily (7) Hepatic steatosis: Code(s): K76.0 - Fatty (change of) liver, not elsewhere classified St
[2022-04-22 16:27] LABS: Glucose Point of Care 299 mg/dl (65-105)
[2022-04-22 20:03] LABS: Glucose Point of Care 414 mg/dl (65-105)
--- NOTE | 2022-04-23 | ECHO_ITS ---
Patient Info Name: Zheng Martinez Age: 66 years : 1955 Gender: Male Ht: 68 in Wt: 205 lbs BSA: 2.14 m2 HR: 90 bpm BP: 137 / 79 mmHg Heart Rhythm: Sinus Rhythm Technical Quality: Fair Exam Date: 04/23/2022 10:52 AM Exam Location: [facility] Card Pulmonary Patient Status: Inpatient Admit Date: 04/19/2022 Staff Ordering Physician: Kenny Delgado Humanities Instructor: Karen Sheffield RDCS Attending Provider: Angelica Horton Referring Physician: Danny DOLAN; Exam Type: CA echo doppler color flow Study Info Indications - fluid ststus Complete two-dimensional, color flow and Doppler transthoracic echocardiogram is performed. Summary 1. Complete two-dimensional, color flow and Doppler transthoracic echocardiogram is performed. 2. Left ventricular chamber dimension is normal. 3. Left ventricular systolic function is hyperdynamic, estimated at >70%. 4. There is mildly increased left ventricular wall thickness. 5. The left ventricular diastolic function is grade II diastolic dysfunction. 6. E/e' 11 is mildly elevated. 7. There is mild aortic valve sclerosis. 8. There is trace tricuspid valve regurgitation. 9. No pulmonary hypertension, estimated pulmonary arterial systolic pressure is 31 mmHg. Left Ventricle E/e' 11 is mildly elevated. Left ventricular chamber dimension is normal. Left ventricular systolic function is hyperdynamic, estimated at >70%. There is mildly increased left ventricular wall thickness. The left ventricular diastolic function is grade II diastolic dysfunction. Right Ventricle Right ventricular systolic function is normal and with normal TAPSE 2.2 cm. Right ventricular chamber dimension is normal. Left Atria Left atrial chamber dimension is normal. Right Atria Right atrial chamber dimension is normal. Aortic Valve The aortic valve is trileaflet. There is mild aortic valve sclerosis. There is no aortic valve stenosis. There is no aortic valve regurgitation. Pulmonic Valve There is no pulmonic regurgitation. Mitral Valve There is no mitral valve stenosis. There is no mitral valve regurgitation. Tricuspid Valve There is trace tricuspid valve regurgitation. No pulmonary hypertension, estimated pulmonary arterial systolic pressure is 31 mmHg. Pericardium/Pleural There is no pericardial effusion. Inferior Vena Cava Normal inferior vena cava with >50% collapse upon inspiration consistent with normal right atrial pressure, 5 mmHg. Aorta The aortic root size at the sinus of Valsalva is normal. Left Ventricular Outflow Tract Name Value Normal LVOT 2D LVOT Diameter 2.1 cm LVOT Doppler LVOT Peak Gradient 7 mmHg LVOT Mean Gradient 4 mmHg LVOT VTI 27 cm LVOT VTI/AV VTI Ratio 0.9 LVOT Stroke Volume 95 ml LVOT CO 8.2 l/min LVOT CI 3.8 l/min/m2 Pulmonic Valve
[2022-04-23 06:00] VITALS: BP 137/79; PULSE 91; RESP 16; TEMP 36.4; O2SAT 97
[2022-04-23] MEDS: methylPREDNISolone SOD SUCC 125 MG VIAL IV PUSH ×3 (06:10→20:35)
[2022-04-23 06:15] LABS: Glucose Point of Care 350 mg/dl (65-105)
[2022-04-23 07:48] LABS: Mean Corpuscular HGB Conc 35.2 g/dl (32-36); Mean Corpuscular Hemoglobin 30.9 pg (26-34); Mean Corpuscular Volume 87.7 fl (80-100); Mean Platelet Volume 12.1 fl (7.4-10.4); Platelet Count Result 238 k/mm3 (150-375); Red Blood Count 2.04 M/mm3 (4.6-6.20); Red Cell Distribution Width 15.9 % (11.5-14.5); White Blood Count 34.4 K/mm3 (4.5-10.0)
[2022-04-23 07:56] LABS: Glucose Point of Care 354 mg/dl (65-105)
[2022-04-23 08:16] LABS: Hematocrit 17.9 % (42.0-52.0); Hemoglobin 6.3 g/dL (14.0-18.0)
[2022-04-23 08:18] LABS: Alanine Aminotransferase 74 U/L (6-50); Albumin Level 3.7 g/dL (3.5-5.1); Alkaline Phosphatase 87 U/L (38-126); Anion Gap 18 mmol/L (8-16); Aspartate Amino Transferase 59 U/L (17-59); Bilirubin,Total 3.9 mg/dL (0.2-1.3); Blood Urea Nitrogen 50 mg/dL (9-20); Carbon Dioxide 19 mmol/L (22-30); Chloride 103 mmol/L (98-107); Estimated CRCL calculation 80 ml/min; Estimated Glomerular Filt Rate > 60; Glucose 343 mg/dL (65-110); Potassium 3.6 mmol/L (3.4-5.0); Sodium 140 mmol/L (137-145)
[2022-04-23 08:20] VITALS: PULSE 90
[2022-04-23] MEDS: METOPROLOL TARTRATE 50 MG TAB PO ×2 (08:20→20:34)
[2022-04-23] MEDS: PANTOPRAZOLE SOD SESQUIHYDRATE 20 MG TAB PO (08:21)
[2022-04-23] MEDS: FOLIC ACID 1 MG TABLET PO (08:21)
[2022-04-23] MEDS: hydroCHLOROthiazide 25 MG TABLET PO (08:21)
[2022-04-23] MEDS: lisinopriL 20 MG TABLET PO (08:21)
[2022-04-23] MEDS: CEFDINIR 300 MG CAPSULE PO ×2 (08:21→20:34)
[2022-04-23] MEDS: INSULIN GLARGINE (*BKC) 100 UNITS/ML 30 UNITS SUB-Q (08:21)
--- NOTE | 2022-04-23 09:15 | PM.IMPN ---
Progress Note: A&P Assessment and Plan (1) Acute hemolytic anemia: Code(s): D59.9 - Acquired hemolytic anemia, unspecified Status: Acute Assessment and Plan: - H/H not above 7 since admission - Current H/H 6.3/17.9 - Gross hematuria was noted upon admission of acute UTI. - Anemia labs iron 291, TIBC 309, % sat 94, Transferrin 173, Ferritin >2000.00, B12 605, Folate 10.4 - No supplementation noted at this time - Dr. Malave is consulted and appreciate recommendations - Total of 4 units of PRBC since admission, Per hematology will hold off on transfusion today - continue Solu-Medrol IV q.6 hours, will need to be transitioned to oral taper at discharge - CTA of chest abdomen and pelvis note splenomegaly. - BNP slightly elevated at 484 - One dose of Lasix given (2) UTI (urinary tract infection): Qualifiers: Urinary tract infection type: acute pyelonephritis Qualified Code(s): N10 - Acute pyelonephritis Code(s): N39.0 - Urinary tract infection, site not specified Status: Acute Assessment and Plan: - UA on 04/19 positive nitrates, negative leukocytes, 10-15 wbc's, trace bacteria. - 04/19/2022 urine culture without growth. - Patient is afebrile. He does having increasing WBC but this is likely secondary to steroids. - Rocephin 1 g IV Q 24 hours started 04/19/2022, transition to oral cefdinir 300 mg p.o. b.i.d. to complete 10 days antibiotic therapy. antibiotic day 4 - 04/19/2022 blood cultures x2 negative to date - Urology agrees with plan of treating UTI and monitoring culture results. (3) Acute hyperglycemia: Code(s): R73.9 - Hyperglycemia, unspecified Status: Acute Assessment and Plan: - blood glucose greater than 500 this a.m. 04/21/2022. fasting glucose 220 so on admission. he does endorse discussing diabetes with possible diagnosis with his PCP prior to admission - currently on a steroid therapy. - A1c 6.1 - Change to consistent carb diet - Accu-Cheks a.c./HS - high dose scale sliding scale insulin, with adjustments to scale - Trend glucose - Adjust therapy as indicated (4) Elevated d-dimer: Code(s): R79.89 - Other specified abnormal findings of blood chemistry Status: Acute Assessment and Plan: - likely secondary to hemolytic anemia. - CTA chest negative for PE. - No concerns for DVT at this time (5) Leukocytosis: Code(s): D72.829 - Elevated white blood cell count, unspecified Status: Acute Assessment and Plan: - WBC 33, neutrophil count 78.5. Patient diagnosed with UTI upon admission. - Patient is afebrile. leukocytosis is likely likely secondary to IV steroids - 04/19/22 peripheral smear with significant RBC fragment/debris - 04/22/22 WBC 39. Afebrile. Asymptomatic. Continue to trend and monitor for acute infection. - 04/23/22 WBC 34.4 Afebrile, asymptomatic, seems to be more in line with heavy steroid use at this time. Continue to trend labs (6) Hypertension: Qualifiers: Hypertension type: primary hypertension Qualified Code(s): I10 - Essential (primary) hypertension Code(s): I10 - Essential (primary) hypertension Status: Chronic Assessment and Plan: - BP is 137/79 - chronic, stable, vitals reviewed - Continue lisinopril 20 mg daily, metoprolol tartrate tartrate 50 mg b.i.d. and HCTZ 25 mg daily - Trend blood pressure - adjust therapy as indicated - One dose of IV lasix (7) Hepatic steatosis: Code(s): K76.0 - Fatty (change of) liver, not elsewhere classified Status: Chronic Assessment and Plan: - noted on on the abdominal ultrasound, Moss versus alcohol liver disease, with mild transaminitis - AST/ALT 59/74 - Total bili also trending down currently 3.9 - Hep panel in the am - Avoid hepatotoxic agents - spiritual counselor on alcohol avoidance (8) Hypertriglyceridemia: Code(s): E78.1 - Pure hyp
[2022-04-23 09:16] LABS: NT Pro B Type Natriuretic Pept 484 pg/mL (5-100)
[2022-04-23 09:45] LABS: Band Neutrophils Percent 11 % (0-6); Lymphocytes Absolute Manual 4.12 K/mm3 (1.1-4.5); Metamyelocytes Percent 2 %; Monocytes Absolute Manual 0.34 K/mm3 (0.1-0.90); Monocytes Percent Manual 1 % (3-9); Myelocytes Percent 2 %; Neutrophils Absolute Manual 28.55 K/mm3 (1.3-6.7); Neutrophils Percent Manual 72 % (46-73); Nucleated Red Blood Cells 1 %; Total Cells Counted 100
[2022-04-23 09:46] LABS: Platelet Estimate Adequate (Adequate); Spherocytes 3+ (NORMAL)
[2022-04-23 09:47] LABS: Atypical Lymphocytes Present; Smudge Cells PRESENT
[2022-04-23 11:22] LABS: Glucose Point of Care 486 mg/dl (65-105)
[2022-04-23] MEDS: INSULIN ASPART (*BKC) 100 UNITS/ML 9 UNITS SUB-Q ×2 (11:32→16:10)
[2022-04-23] MEDS: INSULIN ASPART (*BKC) 100 UNITS/ML SUB-Q ×2 (11:33→16:11)
--- NOTE | 2022-04-23 12:58 | PC.NURSE ---
call placed to Dr. Malave per Myke for order of blood products due to hgb of 6.3. Dr. Malave called at this time, states would not give blood for that, and is trying to limit blood transfusion at this time. provider Myke made aware and stated to cancel the order.
[2022-04-23] MEDS: FUROSEMIDE INJ 40 MG/4 ML VIAL IV PUSH (14:05)
[2022-04-23 14:30] VITALS: BP 126/79; PULSE 85; RESP 16; TEMP 36.1; O2SAT 100
[2022-04-23 16:11] LABS: Glucose Point of Care 330 mg/dl (65-105)
[2022-04-23 20:34] VITALS: PULSE 62
[2022-04-23 21:01] LABS: Glucose Point of Care 326 mg/dl (65-105)
[2022-04-23] MEDS: INSULIN ASPART (*BKC) 100 UNITS/ML 6 UNITS SUB-Q (21:18)
[2022-04-24] VITALS: BP 106/62; PULSE 85; RESP 19; TEMP 36.6; O2SAT 98
[2022-04-24 06:10] LABS: Mean Corpuscular Hemoglobin 30.7 pg (26-34); Mean Corpuscular Volume 87.7 fl (80-100); Mean Platelet Volume 11.7 fl (7.4-10.4); Platelet Count Result 195 k/mm3 (150-375); Red Blood Count 1.79 M/mm3 (4.6-6.20)
[2022-04-24 06:22] LABS: Alanine Aminotransferase 62 U/L (6-50); Albumin Level 3.4 g/dL (3.5-5.1); Alkaline Phosphatase 66 U/L (38-126); Anion Gap 12 mmol/L (8-16); Aspartate Amino Transferase 49 U/L (17-59); Bilirubin,Total 4.2 mg/dL (0.2-1.3); Blood Urea Nitrogen 49 mg/dL (9-20); Calcium 8.8 mg/dL (8.4-10.2); Carbon Dioxide 27 mmol/L (22-30); Chloride 99 mmol/L (98-107); Estimated CRCL calculation 80 ml/min; Estimated Glomerular Filt Rate > 60; Glucose 309 mg/dL (65-110); Magnesium 2.8 mg/dL (1.6-2.3); Potassium 3.2 mmol/L (3.4-5.0); Sodium 138 mmol/L (137-145)
[2022-04-24 06:41] VITALS: BP 119/62; PULSE 83; RESP 18; TEMP 36.6; O2SAT 96
[2022-04-24] MEDS: methylPREDNISolone SOD SUCC 125 MG VIAL IV PUSH ×3 (06:55→20:09)
[2022-04-24 07:24] LABS: Hemoglobin 5.5 g/dL (14.0-18.0)
[2022-04-24 07:25] LABS: Hematocrit 15.7 % (42.0-52.0)
[2022-04-24 07:39] LABS: Anisocytosis 3+ (NORMAL); Hypochromasia 2+ (NORMAL); Monocytes Absolute Manual 0.24 K/mm3 (0.1-0.90); Monocytes Percent Manual 1 % (3-9); Neutrophils Percent Manual 89 % (46-73); Ovalocytes 1+ (NORMAL); Platelet Estimate Adequate (Adequate); Poikilocytosis 1+ (NORMAL); Total Cells Counted 100
[2022-04-24 07:43] LABS: Glucose Point of Care 323 mg/dl (65-105)
[2022-04-24 08:00] VITALS: BP 120/64; PULSE 82; RESP 18; TEMP 36.6; O2SAT 98
[2022-04-24 08:21] VITALS: PULSE 80
[2022-04-24] MEDS: METOPROLOL TARTRATE 50 MG TAB PO ×2 (08:21→20:09)
[2022-04-24] MEDS: FOLIC ACID 1 MG TABLET PO (08:21)
[2022-04-24] MEDS: INSULIN GLARGINE (*BKC) 100 UNITS/ML 45 UNITS SUB-Q (08:21)
[2022-04-24] MEDS: PANTOPRAZOLE SOD SESQUIHYDRATE 20 MG TAB PO (08:21)
[2022-04-24] MEDS: hydroCHLOROthiazide 25 MG TABLET PO (08:21)
[2022-04-24] MEDS: CEFDINIR 300 MG CAPSULE PO ×2 (08:21→20:09)
[2022-04-24] MEDS: lisinopriL 20 MG TABLET PO (08:21)
[2022-04-24] MEDS: INSULIN ASPART (*BKC) 100 UNITS/ML 15 UNITS SUB-Q ×3 (08:22→16:51)
[2022-04-24] MEDS: INSULIN ASPART (*BKC) 100 UNITS/ML SUB-Q ×3 (08:22→16:51)
--- NOTE | 2022-04-24 09:45 | PM.IMPN ---
Progress Note: A&P Assessment and Plan (1) Acute hemolytic anemia: Code(s): D59.9 - Acquired hemolytic anemia, unspecified Status: Acute Assessment and Plan: - H/H not above 7 since admission - Current H/H 5.5/15.7, up to 5.8/16.9 at noon - Gross hematuria was noted upon admission of acute UTI. - Anemia labs iron 291, TIBC 309, % sat 94, Transferrin 173, Ferritin >2000.00, B12 605, Folate 10.4 - No supplementation noted at this time - Dr. Malave is consulted and appreciate recommendations - Total of 4 units of PRBC since admission, Per hematology will hold off on transfusion today - continue Solu-Medrol IV q.6 hours, will need to be transitioned to oral taper at discharge - CTA of chest abdomen and pelvis note splenomegaly. - BNP slightly elevated at 484 - Chest xray does indicate mild pulmonary edema from 04/19/22, could be some dilution involvement, however will not play a huge role - Repeat chest Xray shows no acute cardiopulmonary disease (2) UTI (urinary tract infection): Qualifiers: Urinary tract infection type: acute pyelonephritis Qualified Code(s): N10 - Acute pyelonephritis Code(s): N39.0 - Urinary tract infection, site not specified Status: Acute Assessment and Plan: - UA on 04/19 positive nitrates, negative leukocytes, 10-15 wbc's, trace bacteria. - 04/19/2022 urine culture without growth. - Patient is afebrile. He does having increasing WBC but this is likely secondary to steroids. - Rocephin 1 g IV Q 24 hours started 04/19/2022, transition to oral cefdinir 300 mg p.o. b.i.d. to complete 10 days antibiotic therapy. antibiotic day 5 - 04/19/2022 blood cultures x2 negative to date - Urology agrees with plan of treating UTI and monitoring culture results. (3) Acute hyperglycemia: Code(s): R73.9 - Hyperglycemia, unspecified Status: Acute Assessment and Plan: - blood glucose 220 so on admission. he does endorse discussing diabetes with possible diagnosis with his PCP prior to admission - currently on a steroid therapy. - Current glucose is 309 - A1c 6.1 - Change to consistent carb diet - Accu-Cheks a.c./HS - high dose scale sliding scale insulin, with adjustments to scale - Lantus 30 units daily, increased to 45 units daily - Scheduled meal time 15 units - 24 hour appears to be roughly 90 units - Trend glucose - Adjust therapy as indicated (4) Elevated d-dimer: Code(s): R79.89 - Other specified abnormal findings of blood chemistry Status: Acute Assessment and Plan: - likely secondary to hemolytic anemia. - CTA chest negative for PE. - No concerns for DVT at this time (5) Leukocytosis: Code(s): D72.829 - Elevated white blood cell count, unspecified Status: Acute Assessment and Plan: - WBC 33, neutrophil count 78.5. Patient diagnosed with UTI upon admission. - Patient is afebrile. leukocytosis is likely likely secondary to IV steroids - 04/19/22 peripheral smear with significant RBC fragment/debris - 04/22/22 WBC 39. Afebrile. Asymptomatic. Continue to trend and monitor for acute infection. - 04/23/22 WBC 34.4 Afebrile, asymptomatic, seems to be more in line with heavy steroid use at this time. Continue to trend labs - 04/24/22 WBC 24.0, continues to be asymptomatic, still on high dose steroids (6) Hypertension: Qualifiers: Hypertension type: primary hypertension Qualified Code(s): I10 - Essential (primary) hypertension Code(s): I10 - Essential (primary) hypertension Status: Chronic Assessment and Plan: - BP is 119/62 - chronic, stable, vitals reviewed - Continue lisinopril 20 mg daily, metoprolol tartrate tartrate 50 mg b.i.d. and HCTZ 25 mg daily - Trend blood pressure - adjust therapy as indicated (7) Hepatic steatosis: Code(s): K76.0 - Fatty (change of) liver, not elsewhere classified Status: C
[2022-04-24 11:20] LABS: Glucose Point of Care 341 mg/dl (65-105)
[2022-04-24 12:28] LABS: Hemoglobin 5.8 g/dL (14.0-18.0)
[2022-04-24 12:29] LABS: Hematocrit 16.9 % (42.0-52.0)
[2022-04-24 16:00] VITALS: BP 103/59; PULSE 80; RESP 18; TEMP 36.2; O2SAT 100
[2022-04-24 16:15] LABS: Glucose Point of Care 254 mg/dl (65-105)
[2022-04-24 18:44] LABS: Hemoglobin 5.4 g/dL (14.0-18.0)
[2022-04-24 18:45] LABS: Hematocrit 15.6 % (42.0-52.0)
[2022-04-24 20:09] VITALS: PULSE 68
[2022-04-24 22:36] LABS: Glucose Point of Care 211 mg/dl (65-105)
[2022-04-25] VITALS: BP 101/68; PULSE 88; RESP 17; TEMP 36.3; O2SAT 98
[2022-04-25 05:54] VITALS: BP 114/69; PULSE 85; RESP 16; TEMP 36.4; O2SAT 98
[2022-04-25] MEDS: methylPREDNISolone SOD SUCC 125 MG VIAL IV PUSH ×3 (06:05→21:18)
[2022-04-25 06:36] LABS: Basophils Percent Auto 0.1 % (0.2-1.2); Immature Granulocyte Absolute 1.42 K/mm3 (0.00-0.031); Immature Granulocyte Percent A 6.6 % (0-0.5); Lymphocytes Absolute Auto 1.97 K/mm3 (0.9-3.2); Lymphocytes Percent Auto 9.1 % (18.3-44.2); Mean Corpuscular Hemoglobin 30.6 pg (26-34); Mean Platelet Volume 12.2 fl (7.4-10.4); Monocytes Absolute Auto 0.7 K/mm3 (0.1-0.6); Neutrophils Absolute Auto 17.6 K/mm3 (1.3-6.7); Neutrophils Percent Auto 81.2 % (45.5-73.1); Nucleated Red Blood Cells Absolute Auto 0.1 K/mm3 (0.0-0.012); Nucleated Red Blood Cells Perc 0.5 % (0.0-0.2); Platelet Count Result 194 k/mm3 (150-375); Red Cell Distribution Width 15.9 % (11.5-14.5); White Blood Count 21.6 K/mm3 (4.5-10.0)
[2022-04-25 06:53] LABS: Alanine Aminotransferase 66 U/L (6-50); Albumin Level 3.2 g/dL (3.5-5.1); Alkaline Phosphatase 56 U/L (38-126); Anion Gap 11 mmol/L (8-16); Aspartate Amino Transferase 53 U/L (17-59); Blood Urea Nitrogen 51 mg/dL (9-20); Calcium 8.6 mg/dL (8.4-10.2); Carbon Dioxide 26 mmol/L (22-30); Chloride 99 mmol/L (98-107); Estimated CRCL calculation 72 ml/min; Estimated Glomerular Filt Rate > 60; Glucose 272 mg/dL (65-110); Magnesium 2.8 mg/dL (1.6-2.3); Potassium 3.2 mmol/L (3.4-5.0); Sodium 136 mmol/L (137-145)
[2022-04-25 07:31] LABS: Glucose Point of Care 273 mg/dl (65-105)
[2022-04-25 07:57] LABS: Hemoglobin 5.2 g/dL (14.0-18.0)
[2022-04-25 07:58] LABS: Hematocrit 15.3 % (42.0-52.0)
[2022-04-25 08:01] LABS: Anisocytosis 2+ (NORMAL); Platelet Estimate Adequate (Adequate); Poikilocytosis 1+ (NORMAL); Spherocytes 1+ (NORMAL)
[2022-04-25 08:18] VITALS: PULSE 62
[2022-04-25] MEDS: CEFDINIR 300 MG CAPSULE PO ×2 (08:18→21:16)
[2022-04-25] MEDS: FOLIC ACID 1 MG TABLET PO (08:18)
[2022-04-25] MEDS: lisinopriL 20 MG TABLET PO (08:18)
[2022-04-25] MEDS: METOPROLOL TARTRATE 50 MG TAB PO ×2 (08:18→21:14)
[2022-04-25] MEDS: PANTOPRAZOLE SOD SESQUIHYDRATE 20 MG TAB PO (08:18)
[2022-04-25] MEDS: INSULIN ASPART (*BKC) 100 UNITS/ML 19 UNITS SUB-Q ×3 (08:19→16:54)
[2022-04-25] MEDS: hydroCHLOROthiazide 25 MG TABLET PO (08:19)
[2022-04-25] MEDS: INSULIN ASPART (*BKC) 100 UNITS/ML SUB-Q ×3 (08:19→16:54)
[2022-04-25] MEDS: INSULIN GLARGINE (*BKC) 100 UNITS/ML 60 UNITS SUB-Q (08:19)
--- NOTE | 2022-04-25 10:30 | PM.IMPN ---
Progress Note: A&P Assessment and Plan (1) Acute hemolytic anemia: Code(s): D59.9 - Acquired hemolytic anemia, unspecified Status: Acute Assessment and Plan: - H/H not above 7 since admission - Current H/H 5.2/15.3 - Gross hematuria was noted upon admission of acute UTI. - Anemia labs iron 291, TIBC 309, % sat 94, Transferrin 173, Ferritin >2000.00, B12 605, Folate 10.4 - No supplementation indicated at this time - Dr. Malave is consulted and appreciate recommendations - Total of 4 units of PRBC since admission, Per hematology will hold off on transfusion today - continue Solu-Medrol IV q.6 hours, will need to be transitioned to oral taper at discharge - CTA of chest abdomen and pelvis note splenomegaly. - BNP slightly elevated at 484 - Chest xray does indicate mild pulmonary edema from 04/19/22, could be some dilution involvement, however will not play a huge role - Repeat chest Xray shows no acute cardiopulmonary disease (2) UTI (urinary tract infection): Qualifiers: Urinary tract infection type: acute pyelonephritis Qualified Code(s): N10 - Acute pyelonephritis Code(s): N39.0 - Urinary tract infection, site not specified Status: Acute Assessment and Plan: - UA on 04/19 positive nitrates, negative leukocytes, 10-15 wbc's, trace bacteria. - 04/19/2022 urine culture without growth. - Patient is afebrile - Rocephin 1 g IV Q 24 hours started 04/19/2022, transition to oral cefdinir 300 mg p.o. b.i.d. to complete 10 days antibiotic therapy. antibiotic day 6 - 04/19/2022 blood cultures x2 negative to date - Urology agrees with plan of treating UTI and monitoring culture results. (3) Acute hyperglycemia: Code(s): R73.9 - Hyperglycemia, unspecified Status: Acute Assessment and Plan: - blood glucose 220 so on admission. he does endorse discussing diabetes with possible diagnosis with his PCP prior to admission - currently on a steroid therapy. - Current glucose is 272 - A1c 6.1 - Change to consistent carb diet - Accu-Cheks a.c./HS - high dose scale sliding scale insulin, with adjustments to scale - increase Lantus 60 units daily - Scheduled meal time 19 units - 24 hour appears to be roughly 118 units - Trend glucose - Adjust therapy as indicated (4) Elevated d-dimer: Code(s): R79.89 - Other specified abnormal findings of blood chemistry Status: Acute Assessment and Plan: - likely secondary to hemolytic anemia. - CTA chest negative for PE. - No concerns for DVT at this time (5) Leukocytosis: Code(s): D72.829 - Elevated white blood cell count, unspecified Status: Acute Assessment and Plan: - WBC 33, neutrophil count 78.5. Patient diagnosed with UTI upon admission. - Patient is afebrile. leukocytosis is likely likely secondary to IV steroids - 04/19/22 peripheral smear with significant RBC fragment/debris - 04/22/22 WBC 39. Afebrile. Asymptomatic. Continue to trend and monitor for acute infection. - 04/23/22 WBC 34.4 Afebrile, asymptomatic, seems to be more in line with heavy steroid use at this time. Continue to trend labs - 04/24/22 WBC 24.0, continues to be asymptomatic, still on high dose steroids - 04/25/22 WBC continue to trend down currently at 21.6, assymtomatic (6) Hypertension: Qualifiers: Hypertension type: primary hypertension Qualified Code(s): I10 - Essential (primary) hypertension Code(s): I10 - Essential (primary) hypertension Status: Chronic Assessment and Plan: - BP is 114/69 - chronic, stable, vitals reviewed - Continue lisinopril 20 mg daily, metoprolol tartrate tartrate 50 mg b.i.d. and HCTZ 25 mg daily - Trend blood pressure - adjust therapy as indicated (7) Hepatic steatosis: Code(s): K76.0 - Fatty (change of) liver, not elsewhere classified Status: Chronic Assessment and Plan: - not
[2022-04-25 11:14] LABS: Glucose Point of Care 334 mg/dl (65-105)
[2022-04-25 14:00] VITALS: BP 102/52; PULSE 81; RESP 16; TEMP 36.4; O2SAT 100
[2022-04-25 16:21] LABS: Glucose Point of Care 190 mg/dl (65-105)
[2022-04-25 21:14] VITALS: PULSE 84
[2022-04-25 21:51] LABS: Glucose Point of Care 135 mg/dl (65-105)
[2022-04-25 21:59] VITALS: BP 105/56; PULSE 86; RESP 16; TEMP 36.3; O2SAT 95
[2022-04-26] VITALS (8 sets, daily range): BP systolic 98–118; BP diastolic 53–83; PULSE 76–86; RESP 14–16; TEMP 36.1–36.6; O2SAT 96–100
[2022-04-26] MEDS: methylPREDNISolone SOD SUCC 125 MG VIAL IV PUSH ×3 (06:05→21:37)
[2022-04-26 07:33] LABS: Basophils Percent Auto 0.1 % (0.2-1.2); Immature Granulocyte Absolute 0.92 K/mm3 (0.00-0.031); Immature Granulocyte Percent A 4.3 % (0-0.5); Lymphocytes Absolute Auto 1.25 K/mm3 (0.9-3.2); Lymphocytes Percent Auto 5.9 % (18.3-44.2); Mean Corpuscular HGB Conc 33.3 g/dl (32-36); Mean Corpuscular Hemoglobin 30.4 pg (26-34); Mean Corpuscular Volume 91.1 fl (80-100); Mean Platelet Volume 11.7 fl (7.4-10.4); Monocytes Absolute Auto 0.7 K/mm3 (0.1-0.6); Monocytes Percent Auto 3.2 % (2.6-8.5); Neutrophils Absolute Auto 18.4 K/mm3 (1.3-6.7); Neutrophils Percent Auto 86.5 % (45.5-73.1); Nucleated Red Blood Cells Absolute Auto 0.1 K/mm3 (0.0-0.012); Nucleated Red Blood Cells Perc 0.5 % (0.0-0.2); Platelet Count Result 177 k/mm3 (150-375); Red Blood Count 1.58 M/mm3 (4.6-6.20); Red Cell Distribution Width 16.3 % (11.5-14.5); White Blood Count 21.2 K/mm3 (4.5-10.0)
[2022-04-26 07:35] LABS: Glucose Point of Care 188 mg/dl (65-105)
[2022-04-26 07:36] LABS: Alanine Aminotransferase 75 U/L (6-50); Alkaline Phosphatase 59 U/L (38-126); Anion Gap 9 mmol/L (8-16); Aspartate Amino Transferase 55 U/L (17-59); Bilirubin,Total 4.3 mg/dL (0.2-1.3); Blood Urea Nitrogen 56 mg/dL (9-20); Calcium 8.2 mg/dL (8.4-10.2); Carbon Dioxide 25 mmol/L (22-30); Chloride 99 mmol/L (98-107); Estimated CRCL calculation 66 ml/min; Estimated Glomerular Filt Rate > 60; Glucose 192 mg/dL (65-110); Hematocrit 14.4 % (42.0-52.0); Hemoglobin 4.8 g/dL (14.0-18.0); Potassium 2.9 mmol/L (3.4-5.0); Sodium 133 mmol/L (137-145)
[2022-04-26 08:04] LABS: Platelet Estimate Adequate (Adequate)
[2022-04-26 08:05] LABS: Microcytosis 2+ (NORMAL); Spherocytes 2+ (NORMAL)
[2022-04-26] MEDS: SODIUM CHLORIDE 0.9% IV 250 ML 30 ML IV CONT (08:11)
[2022-04-26] MEDS: FOLIC ACID 1 MG TABLET PO (08:12)
[2022-04-26] MEDS: PANTOPRAZOLE SOD SESQUIHYDRATE 20 MG TAB PO (08:12)
[2022-04-26] MEDS: CEFDINIR 300 MG CAPSULE PO ×2 (08:12→20:06)
[2022-04-26] MEDS: METOPROLOL TARTRATE 50 MG TAB PO ×2 (08:12→20:06)
[2022-04-26] MEDS: lisinopriL 20 MG TABLET PO (08:13)
[2022-04-26] MEDS: hydroCHLOROthiazide 25 MG TABLET PO (08:13)
[2022-04-26] MEDS: INSULIN ASPART (*BKC) 100 UNITS/ML 19 UNITS SUB-Q ×3 (08:50→17:08)
[2022-04-26] MEDS: INSULIN GLARGINE (*BKC) 100 UNITS/ML 60 UNITS SUB-Q (08:50)
[2022-04-26] MEDS: INSULIN ASPART (*BKC) 100 UNITS/ML SUB-Q ×3 (08:50→17:08)
[2022-04-26] MEDS: POTASSIUM CHLORIDE 20 MEQ TABLET 40 MEQ PO (08:57)
--- NOTE | 2022-04-26 10:27 | PCNWS ---
Weekly nutritional screen. Patient is tolerating current diet with adequate intake. No weight loss reported. No nutritional needs at this time.
[2022-04-26 11:09] LABS: Lactate Dehydrogenase 570 U/L (120-246)
[2022-04-26] MEDS: POTASSIUM CHLORIDE INJ 40 MEQ in SODIUM CHLORIDE 0.9% IV 500 ML 130 MEQ IVPB (11:19)
[2022-04-26 11:20] LABS: Glucose Point of Care 188 mg/dl (65-105)
--- NOTE | 2022-04-26 14:27 | PM.IMPN ---
Progress Note: A&P Assessment and Plan (1) Acute hemolytic anemia: Code(s): D59.9 - Acquired hemolytic anemia, unspecified Status: Acute Assessment and Plan: - H/H not above 7 since admission - Current H/H 4.8 - Gross hematuria was noted upon admission of acute UTI but has resolved. - Anemia labs iron 291, TIBC 309, % sat 94, Transferrin 173, Ferritin >2000.00, B12 605, Folate 10.4 - LDH 924 to 748 to 570; Tbili 6.5 to 8.3 to 3.3 to 3.9 to 4.3. - Dr. Malave is consulted and appreciate recommendations - Total of 4 units of PRBC since admission. To receive an additional 1 unit PRBC today. - continue Solu-Medrol IV 125 mg Q8 hours - CTA of chest abdomen and pelvis note mild splenomegaly and diffuse hepatic steatosis - Hem/Onc recommending Rituxan transfusion which cannot be given inpatient at our facility. Recommending transfer to higher acuity care. (2) UTI (urinary tract infection): Qualifiers: Urinary tract infection type: acute pyelonephritis Qualified Code(s): N10 - Acute pyelonephritis Code(s): N39.0 - Urinary tract infection, site not specified Status: Acute Assessment and Plan: - UA on 04/19 positive nitrates, negative leukocytes, 10-15 wbc's, trace bacteria. - 04/19/2022 urine culture without growth. - Patient is afebrile - Rocephin 1 g IV Q 24 hours started 04/19/2022, transition to oral cefdinir 300 mg p.o. b.i.d. to complete 10 days antibiotic therapy. antibiotic day 6 - 04/19/2022 blood cultures x2 negative to date - Urology agrees with plan of treating UTI and monitoring culture results. Stable. (3) Acute hyperglycemia: Code(s): R73.9 - Hyperglycemia, unspecified Status: Acute Assessment and Plan: - blood glucose 220 so on admission. he does endorse discussing diabetes with possible diagnosis with his PCP prior to admission - currently on a steroid therapy. - Current glucose is 135 to 188 - A1c 6.1 - Change to consistent carb diet - Accu-Cheks a.c./HS - high dose scale sliding scale insulin, with adjustments to scale - increase Lantus 60 units daily and aspart 19 units with meals plus high-dose sliding scale insulin. - Adjust therapy as indicated; maintain current glucose (4) Elevated d-dimer: Code(s): R79.89 - Other specified abnormal findings of blood chemistry Status: Acute Assessment and Plan: - likely secondary to hemolytic anemia. - CTA chest negative for PE. - No concerns for DVT at this time (5) Leukocytosis: Code(s): D72.829 - Elevated white blood cell count, unspecified Status: Acute Assessment and Plan: - WBC 33, neutrophil count 78.5. Patient diagnosed with UTI upon admission. - Patient is afebrile. leukocytosis is likely likely secondary to IV steroids - 04/19/22 peripheral smear with significant RBC fragment/debris - 04/22/22 WBC 39. Afebrile. Asymptomatic. Continue to trend and monitor for acute infection. - 04/23/22 WBC 34.4 Afebrile, asymptomatic, seems to be more in line with heavy steroid use at this time. Continue to trend labs - 04/24/22 WBC 24.0, continues to be asymptomatic, still on high dose steroids - 04/25/22 WBC continue to trend down currently at 21.6, asymtomatic - 04/26/22 WBC 21.2. Afebrile. No s/s acute infection. (6) Hypertension: Qualifiers: Hypertension type: primary hypertension Qualified Code(s): I10 - Essential (primary) hypertension Code(s): I10 - Essential (primary) hypertension Status: Chronic Assessment and Plan: - BP is 114/69 - chronic, stable, vitals reviewed - Continue lisinopril 20 mg daily, metoprolol tartrate tartrate 50 mg b.i.d. and HCTZ 25 mg daily - Trend blood pressure - adjust therapy as indicated (7) Hepatic steatosis: Code(s): K76.0 - Fatty (change of) liver, not elsewhere classified Status: Chronic Assessment and Plan: - noted on on the abdominal ul
[2022-04-26 16:18] LABS: Glucose Point of Care 177 mg/dl (65-105)
--- NOTE | 2022-04-26 19:24 | PC.NURSE ---
Report given to Shantel MENDEZ at [facility]. Patient to transfer to [facility] room 710.
--- NOTE | 2022-04-26 19:27 | WPDONCPN ---
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 Left noted. Hemoglobin has dropped to 4.8. LDH and bilirubin is slowly going down. We will transfuse 1 unit of packed red blood cells and continue steroid treatment. Patient is not able to get Rituxan in patient. I have initiated transferred to [facility] and have discussed this case with the fellow. Patient hopefully will be transferred soon to the [facility] for further management including inpatient Rituxan therapy. - Time Spent With Patient Total time spent is greater than 50% in coordination of care (as documented) at patient's floor/unit and/or counseling patient: 15 - 25 minutes Subjective Interval history: Autoimmune hemolytic anemia Review of Systems - Review of Systems Patient denies any bleeding and bruising. He does have some tiredness and fatigue. Denies any fevers and chills. No other new complaints. Exam Vital signs: Veronica Stafford. Assessment of coma and impaired consciousness. A practical scale. Lancet 1974; 2:81-4. Narrative: Lungs are clear to auscultation bilaterally Cardiovascular regular rate rhythm no murmurs Abdomen soft nontender nondistended bowel sounds are positive Extremities no edema PN: Objective Data - Labs CBC & Chem 7: 04/26/22 06:25 04/26/22 06:25 Labs: Laboratory Results - last 24 hr 04/23/22 04/25/22 04/26/22 11:21 21:13 06:25 WBC 21.2 H RBC 1.58 L Hgb 4.8 L* Hct 14.4 L* MCV 91.1 MCH 30.4 MCHC 33.3 RDW 16.3 H Plt Count 177 MPV 11.7 H Immature Gran % (Auto) 4.3 H Neut % (Auto) 86.5 H Lymph % (Auto) 5.9 L [place]he % (Auto) 3.2 Eos % (Auto) 0.0 Baso % (Auto) 0.1 L Lymph # (Auto) 1.25 [place]he # (Auto) 0.7 H Eos # (Auto) 0.0 Baso # (Auto) 0.0 Abs Immat Gran (auto) 0.92 H Absolute Neuts (auto) 18.4 H Absolute Nucleated RBC 0.1 H Nucleated RBC % 0.5 H Platelet Estimate Adequate Microcytosis 2+ Spherocytes 2+ Schistocytes Not Reportable Sodium Potassium Chloride Carbon Dioxide Anion Gap BUN Creatinine Estim Creat Clear Calc Estimated GFR Glucose POC Capillary Glucose 135 H Calcium Total Bilirubin AST ALT Alkaline Phosphatase Lactate Dehydrogenase Total Protein Albumin Blood Type A Positive Antibody Screen Negative Crossmatch See Detail 04/26/22 04/26/22 04/26/22 06:25 06:25 07:32 WBC RBC Hgb Hct MCV MCH MCHC RDW Plt Count MPV Immature Gran % (Auto) Neut % (Auto) Lymph % (Auto) [place]he % (Auto) Eos % (Auto) Baso % (Auto) Lymph # (Auto) Ashe # (Auto) Eos # (Auto) Baso # (Auto) Abs Immat Gran (auto) Absolute Neuts (auto) Absolute Nucleated RBC Nucleated RBC % Platelet Estimate Microcytosis Spherocytes Schistocytes Sodium 133 L Potassium 2.9 L Chloride 99 Carbon Dioxide 25 Anion Gap 9 BUN 56 H Creatinine 1.10 Estim Creat Clear Calc 66 Estimated GFR > 60 Glucose 192 H POC Capillary Glucose 188 H Calcium 8.2 L Total Bilirubin 4.3 H AST 55 ALT 75 H Alkaline Phosphatase 59 Lactate Dehydrogenase 570 H Total Protein 6.0 L Albumin 3.0 L Blood Type Antibody Screen Crossmatch 04/26/22 04/26/22 11:15 16:11 WBC RBC Hgb Hct MCV MCH MCHC RDW Plt Count MPV Immature Gran % (Auto) Neut % (Auto) Lymph % (Auto) Ashe % (Auto) Eos % (Auto) Baso % (Auto) Lymph # (Auto) Ashe # (Auto) Eos # (Auto) Baso # (Auto) Abs Immat Gran (auto) Absolute Neuts (auto) Absolute Nucleated RBC Nucleated RBC % Platelet Estimate Microcytosis Spherocytes Schistocytes Sodium Potassium Chloride Carbon Dioxide Anion Gap BUN
--- NOTE | 2022-04-27 06:40 | PM.TDS ---
Transfer Discharge Sum: Prov Provider Date of admission: 04/19/22 11:14 Primary care physician: UNKNOWN,DOCTOR Admitting clinician: Sandi Nevarez MD Consults: 04/19/22 Consult to Physician Routine Comment: left vm with dr @[phone] (,us) Consulting Provider: Danny Malave call center supervisor/MD group to consult: Consult Dr. Malave Reason for consultation: Acute hemolytic anemia Has provider been notified: Yes Consult to Physician Routine Comment: spoke to office @[phone] (,[place]) Consulting Provider: Esvin Kitchen call center supervisor/ group to consult: urology Reason for consultation: hematuria, h/o kidney stones Has provider been notified: Yes Attending physician on discharge: Della Perales Discharging clinician: Mery Wallace Anticipated date of transfer: 04/26/22 Receiving physician/facility: [facility], Hospitalist team accepting; Dr. Velazquez Hematology/Oncology Fellow consulting. DS: Admitting Diagnosis Discharge Date 04/26/222322 Admitting Diagnosis Hemolytic aenmia Acute UTI Gross hematuria DS: Discharge Diagnosis Discharge Diagnosis (1) Acute hemolytic anemia: Code(s): D59.9 - Acquired hemolytic anemia, unspecified Status: Acute (2) UTI (urinary tract infection): Qualifiers: Urinary tract infection type: acute pyelonephritis Qualified Code(s): N10 - Acute pyelonephritis Code(s): N39.0 - Urinary tract infection, site not specified Status: Acute (3) Gross hematuria: Code(s): R31.0 - Gross hematuria Status: Acute (4) Acute hyperglycemia: Code(s): R73.9 - Hyperglycemia, unspecified Status: Acute (5) Hepatic steatosis: Code(s): K76.0 - Fatty (change of) liver, not elsewhere classified Status: Chronic (6) Elevated d-dimer: Code(s): R79.89 - Other specified abnormal findings of blood chemistry Status: Acute (7) Prediabetes: Code(s): R73.03 - Prediabetes Status: Chronic Transfer Discharge Sum: Med Medications Active and Home Medications: Home Medications fenofibrate 160 mg tablet 160 mg PO DAILY 04/19/22 [History Confirmed 04/19/22] lisinopril 20 mg-hydrochlorothiazide 25 mg tablet 1 tablet PO DAILY 04/19/22 [History Confirmed 04/19/22] metoprolol tartrate 100 mg tablet 50 mg PO BID 04/19/22 [History Confirmed 04/19/22] Active Medications Generic Name Dose Route Start Last Admin ? Trade Name Freq? PRN Reason Stop Dose Admin Acetaminophen ?650 mg ?04/19/22 02:31 ? ? Acetaminophen 325 Mg Tablet ?PO ?Q4H PRN ?Mild Pain (1-3) or Fever ? ? Cefdinir ?300 mg ?04/22/22 09:00 ?04/26/22 08:12 ? Cefdinir 300 Mg Capsule ?PO ?04/29/22 08:59 ?300 mg ? ?Q12HR NU ? ?Administration Dextrose ?12.5 gm ?04/21/22 07:34 ? ? Dextrose 50% 25 Gm/50 Ml Syringe ?IV PUSH ?PRN PRN ?Hypoglycemia ?Protocol ? ? Fenofibrate ?160 mg ?04/19/22 09:00 ?04/19/22 08:22 ? Fenofibrate 160 Mg Tablet ?PO ? ?160 mg ? ?DAILY NU ? ?Administration Folic Acid ?1 mg ?04/20/22 09:00 ?04/26/22 08:12 ? Folic Acid 1 Mg Tablet ?PO ? ?1 mg ? ?DAILY NU ? ?Administration Glucagon ?1 mg ?04/21/22 07:34 ? ? Glucagon For Inj 1 Mg Vial ?IM ?PRN PRN ?Hypoglycemia ?Protocol ? ? Glucose ?15 gm ?04/21/22 07:34 ? ? Glucose Oral Gel 15 Gm Of Glucse In 37.5 Gm Tube ?PO ?PRN PRN ?Hypoglycemia ?Protocol ? ? Hydrochlorothiazide ?12.5 mg ?04/27/22 09:00 ? ? Hydrochlorothiazide 12.5 Mg Capsule ?PO ?QAM NU ? ? Dextrose ?1,000 mls @ 100 mls/hr ?04/21/22 07:34 ? ? Dextrose 5% 1,000 Ml ?IVPB ?PRN PRN ?Hypoglycemia ?Protocol ? ? Sodium Chloride ?250 mls @ 30 mls/hr ?04/26/22 07:42 ?04/26/22 08:11 ? Normal Saline Iv ?IV CONT ?04/26/22 16:01 ?30 mls/hr ? ?.[id number] STA ? ?Administration Insulin Aspart ?4 - 12 units ?04/23/22 12:00 ?04/26/22 11:57 ? Insulin Aspart (*Bkc) 100 Units/Ml ?SUB-Q ? ?4 units ? ?TIDWM NU ? ?Administration ? ?Protocol ? ? Insu
--- NOTE | 2022-05-08 17:43 | P.TS_ITS ---
Transfer Discharge Sum: Prov Provider Date of admission: 04/19/22 11:14 Primary care physician: UNKNOWN,DOCTOR Admitting clinician: Sandi Nevarez MD Consults: 04/19/22 Consult to Physician Routine Comment: left vm with dr @[phone] (,) Consulting Provider: Danny Malave orthopedically impaired teacher/MD group to consult: Consult Dr. Malave Reason for consultation: Acute hemolytic anemia Has provider been notified: Yes Consult to Physician Routine Comment: spoke to office @[phone] (,[place]) Consulting Provider: Esvin Kitchen orthopedically impaired teacher/MD group to consult: urology Reason for consultation: hematuria, h/o kidney stones Has provider been notified: Yes DS: Admitting Diagnosis Discharge Date 04/26/22 Transfer Discharge Sum: Med Medications Active and Home Medications: Home Medications fenofibrate 160 mg tablet 160 mg PO DAILY 04/19/22 [History Confirmed 05/06/22] metoprolol tartrate 100 mg tablet 50 mg PO BID 04/19/22 [History Confirmed 05/06/22] aspirin 81 mg tablet 81 mg PO DAILY 05/06/22 [History Confirmed 05/06/22] famotidine 20 mg tablet 20 mg PO BID 05/06/22 [History Confirmed 05/06/22] folic acid 1 mg tablet 1 mg PO DAILY 05/06/22 [History Confirmed 05/06/22] insulin NPH isoph U-100 human 100 unit/mL (3 mL) subcutaneous pen 8 unit subcut BID 05/06/22 [History Confirmed 05/06/22] lisinopril 20 mg tablet 20 mg PO DAILY 05/06/22 [History Confirmed 05/06/22] prednisone 5 mg tablet 45 mg PO BID 05/06/22 [History Confirmed 05/06/22] sulfamethoxazole 800 mg-trimethoprim 160 mg tablet 1 tablet PO QMWF 05/06/22 [History Confirmed 05/06/22] Transfer Discharge Sum: Hosp Hospital Course Hospital course: Zheng Martinez is a 66 year old male Time Spent with Patient Time attestation: Total time spent providing and/or coordinating transfer services: DS: Data Data Completed and Pending Completed studies during hospitalization: Pending at discharge 04/19/22 02:33 Consult to Pathologist [PTH] Routine
== END 2022-04-26 21:45 | disposition short-term general hospital (02) | DRG 809 ==
PROVIDERS: Internal Medicine Hematology & Oncology; Nurse Practitioner; Nurse Practitioner Adult Health; Nurse Practitioner Family; Admitting Provider Internal Medicine; Visit Provider Student in an Organized Health Care Education/Training Program
DX: D59.10 Autoimmune hemolytic anemia, unspecified (principal); N10 Acute pyelonephritis; R31.0 Gross hematuria; I10 Essential (primary) hypertension; E78.1 Pure hyperglyceridemia; E78.5 Hyperlipidemia, unspecified; R73.9 Hyperglycemia, unspecified; R79.89 Other specified abnormal findings of blood chemistry; D72.829 Elevated white blood cell count, unspecified; T38.0X5A Adverse effect of glucocorticoids and synthetic analogues, initial encounter; K76.0 Fatty (change of) liver, not elsewhere classified; Z79.899 Other long term (current) drug therapy; Z87.442 Personal history of urinary calculi
CPT/HCPCS: 36415; 36430; 71045; 71046; 71275; 74174; 76705; 80053; 80074; 81001; 82607; 82728; 82746; 82747; 82948; 83010; 83036; 83540; 83550; 83615; 83735; 83880; 84153; 84466; 85014; 85018; 85025; 85027; 85046; 85380; 85610; 85730; 86850; 86880; 86900; 86901; 86920; 87040; 87086; 93005; 93306; 96365; A9270; G0378; G0379; J0696; J1815; J1940; J2930; J3480; J7030; J7040; J7050; P9016; Q9967

== ENCOUNTER 2022-05-13 14:59 | Outpatient (CLI) | payer MEDICARE, MEDICAID, SELFPAY ==
--- NOTE | ~2022-05-13 | US_ITS ---
EXAMINATION: US venous doppler LE RT DATE: 05/13/2022 15:44 INDICATION: Right lower limb edema. TECHNIQUE: Grayscale ultrasound images without and with compression and Doppler ultrasound images of the right lower extremity veins were obtained. COMPARISON: None. FINDINGS: The visualized portions of right common femoral vein, profunda (deep) femoral vein, femoral vein, and greater saphenous vein outflow are patent. There is thrombus in right popliteal, posterior tibial, a nd peroneal veins. IMPRESSION: 1. Acute deep vein thrombosis involving right popliteal, posterior tibial, and peroneal veins. Reviewed, dictated and finalized at location A.
== END 2022-05-13 15:00 | disposition home or self-care (01) ==
PROVIDERS: Visit Provider Internal Medicine Hematology & Oncology
DX: R60.0 Localized edema (principal); I82.431 Acute embolism and thrombosis of right popliteal vein; I82.441 Acute embolism and thrombosis of right tibial vein; I82.451 Acute embolism and thrombosis of right peroneal vein
CPT/HCPCS: 36415; 80047; 85025; 93971; 96365; 96366; 96367; 96375; A9270; J1100; J1200; J7030; Q5115

== ENCOUNTER 2022-05-20 10:36 | Outpatient (CLI) | payer MEDICARE, MEDICAID, SELFPAY ==
[2022-05-20 10:33] LABS: Basophils Percent Auto 0.1 % (0.2-1.2); Hematocrit 26.3 % (42.0-52.0); Hemoglobin 8.9 g/dL (14.0-18.0); Immature Granulocyte Percent A 3.8 % (0-0.5); Lymphocytes Absolute Auto 0.43 K/mm3 (0.9-3.2); Lymphocytes Percent Auto 5.4 % (18.3-44.2); Mean Corpuscular HGB Conc 33.8 g/dl (32-36); Mean Corpuscular Hemoglobin 33.3 pg (26-34); Mean Corpuscular Volume 98.5 fl (80-100); Mean Platelet Volume 9.9 fl (7.4-10.4); Monocytes Absolute Auto 0.5 K/mm3 (0.1-0.6); Monocytes Percent Auto 6.2 % (2.6-8.5); Neutrophils Absolute Auto 6.7 K/mm3 (1.3-6.7); Neutrophils Percent Auto 84.5 % (45.5-73.1); Nucleated Red Blood Cells Perc 0.3 % (0.0-0.2); Platelet Count Result 250 k/mm3 (150-375); Red Blood Count 2.67 M/mm3 (4.6-6.20); Red Cell Distribution Width 24.3 % (11.5-14.5)
[2022-05-20 11:10] LABS: Anion Gap 10 mmol/L (8-16); Blood Urea Nitrogen 24 mg/dL (9-20); Calcium 10.2 mg/dL (8.4-10.2); Carbon Dioxide 25 mmol/L (22-30); Chloride 95 mmol/L (98-107); Estimated Glomerular Filt Rate > 60; Glucose 327 mg/dL (65-110); Potassium 4.5 mmol/L (3.4-5.0); Sodium 130 mmol/L (137-145)
== END 2022-05-20 10:37 | disposition home or self-care (01) ==
LOC: ANHLAB 10:36
PROVIDERS: Visit Provider Internal Medicine Hematology & Oncology
DX: D59.9 Acquired hemolytic anemia, unspecified (principal)
CPT/HCPCS: 36415; 80048; 85025; 96365; 96366; 96367; 96375; 99213; A9270; G0463; J1100; J1200; J7030; Q5115

== ENCOUNTER 2024-09-21 08:51 | Outpatient (CLI) | payer MEDICARE, SELFPAY ==
--- OUTSIDE RECORDS SUMMARY | 2024-09-21 09:00 | XMS_ITS | Clinical Summary ---
Author Organization [facility] Address [address] [place] [address] Care Team Providers Care Wafer Polisher Name Role Phone Unavailable Primary Care Provider Unavailabl e Source Comments [facility],non-owned Affiliates and Associated Physician Practices is amultiple site organization consisting of ambulatory clinics and hospital sitesin [place], [place], [place] and [place]. This disclosure is being madepursuant to the Care Everywhere program and may not contain all information available regarding this patient. Last updated 18.[facility] Allergies No known active allergies Medications * Be aware that medications may not be up to date on this document. Alwaysverify current medications with the patient. Medication Sig Dispensed Refills Start Date End Date Status aspirin EC (Ecotrin) 81 MG tablet Take 81 mg by mouth once daily Active fenofibrate (Lofibra) 160 MG tablet Take 160 mg by mouth once daily 03/05/2022 Active metoprolol tartrate IR (Lopressor) 100 MG tablet TAKE 1/2 (ONE-HALF) TABLET BY MOUTH TWICE DAILY 04/08/2022 Active insulin NPH pen Inject 8 (eight) Units subcutaneously 2 times daily 3 mL 04/30/2022 Active folic acid (Folvite) 1 MG tablet Take 1 (one) tablet by mouth once daily 30 tablet 05/01/2022 Active sulfamethoxazole- trimethoprim (Bactrim DS; Septra DS) 800-160 MG tablet Take 1 (one) tablet by mouth every Tuesday, Tuesday & Tuesday 15 tablet 05/03/2022 Active famotidine (Pepcid) 20 MG tablet Take 1 (one) tablet by mouth 2 times daily 30 tablet 04/30/2022 Active insulin pen needle (Novofine 31) 31G X 5 MM needle Use 1 (one) Each as instructed 2 times daily 100 Each 04/30/2022 Active Active Problems Problem Noted Date Diagnosed Date Obesity 05/04/2022 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 Alcohol Use Standard Drinks/Week Comments Yes 12 (1 standard drink = 0.6 oz pu re alcohol) AUDIT-C Answer Date Recorded Q1: How often do you have a drink containing alcohol? 4 or more times a week 04/26/2022 Q2: How many drinks containi ng alcohol do you have on a typical day when you are drinking? 1 or 2 Q3: How often do you have si x or more drinks on one occasion? Never 04/26/2022 Sex and Gender Information Value Date Recorded Sex Assigned at Not on file Gender Identity Not on file Sexual Orientation Not on file Last Filed Vital Signs Vital Sign Reading Time Taken Comments Blood Pressure 135/78 04/30/2022 4:03 PM CDT Pulse 79 04/30/2022 4:03 PM CDT Temperature 36.9 C (98.4 F) 04/30/2022 4:03 PM CDT Respiratory Rate 18 04/30/2022 4:03 PM CDT Oxygen Saturation 97% 04/30/2022 4:03 PM CDT Inhaled Oxygen Concentration - - Weight 90.6 kg (199 lb 12.8 oz) 022 10:07 AM CDT Height 172.7 cm (5' 8 ) 04/27/2022 10:0 7 AM CDT Body Mass Index 30.38 04/27/2022 10:07 AM CDT Plan of Treatment Health Maintenance Due Date Last Done Comments COLOGUARD (AGES 45-75) - COLON CA SCREENING 1956 COLON MONITORING 1956 COLONOSCOPY - COLON CA SCREENING 1956 CT COLONOGRAPHY - COLON CA SCREENING 1956 Colorectal Cancer Screening 1956 FIT - COLON CA SCREENING 1956 FLEX SIG - COLON CA SCREENING 1956 MEDICARE AWV 12 MONTHS 1956 DTAP/TDAP/TD VACCINES (1 - Tdap) 1975 PNEUMOCOCCAL VACCINE 50+ (1 of 2 - PCV) 1975 DIABETES-STATIN 1996 ZOSTER VACCINE (1 of 2) 2006 DIABETES RETINOPATHY SCREENING 05/04/2022 DIABETES-FOOT EXAM WITH MONOFILAMENT 05/04/2022 DIABETES-HGB A1C 07/15/2022 01/13/2022 DIABETES-SERUM CREATININE 04/30/20232021, 04/29/2022, 04/28/2022, Additional history exists COVID-19 VACCINE ( season) 2024 11/24/2021, 06/07/2021, 10/09/2020, Additional history exists INFLUENZA VACCINE (#1) 2024 , 05/20/2021, 05/06/2020, Additional history exists DEPRESSION SCREENING 08/08/2024 DIABETES - URINE PROTEIN SCREENING 08/08/2024 Respiratory Syncytial Virus (RSV) Vaccine Pt: or over 60 yrs (1 - 1-dose 75+ series) 2031 HEPATITIS C SCREENING Completed 04/27/2022 HEPATITIS B VACCINE Aged Out No longe r eligible based on patient's age to complete this topic HIB VACCINE Aged Out No longer eligi ble based on patient's age to complete this topic HPV VACCINE Aged Out No longer eligi ble based on patient's age to complete this topic MENINGOCOCCAL (Group B) VACCINE Aged Out No longer eligible based on patient's age to complete this topic MENINGOCOCCAL VACCINE Aged Out No dinah gabriela eligible based on patient's age to complete this topic Procedures Procedure Name Priority Date/Time Associated Diagnosis Comments COMPREHENSIVE METABOLIC PANEL AM Draw 04/30/2022 4:54 AM CDT HEPATITIS C AB SCREEN RFLX NAAT QUANT Routine 04/27/2022 12:35 PM CDT from Last 3 Months or Most Recently Relevant to Health Maintenance Results * (ABNORMAL) COMPREHENSIVE METABOLIC PANEL (04/30/2022 4:54 AM [facility]) BUN 23 7 - 26 mg/dL 04/30/2022 6:04 AM [facility] Creatinine 0.73 0.71 - 1.16 mg/dL 04/30/2022 6:04 AM [facility] Sodium 135(L) 136 - 145 mmol/L 04/30/2022 6:04 AM [facility] Potassium 4.3 3.5 - 4.5 mmol/L 04/30/2022 6:04 AM [facility] Chloride 107 98 - 107 mmol/L 04/30/2022 6:04 AM [facility] CO2 19(L) 22 - 29 mmol/L 04/30/2022 6:04 AM [facility] Glucose 171(H) 70 - 115 mg/dL 04/30/2022 6:04 AM [facility] Calcium 7.8(L) 8.4 - 10.2 mg/dL 04/30/2022 6:04 AM [facility] Protein Total 4.6(L) 6.0 - 8.3 g/dL 04/30/2022 6:04 AM [facility] Albumin 2.6(L) 3.4 - 5.0 g/dL 04/30/2022 6:04 AM [facility] Bilirubin Total 2.7(H) 0.2 - 1.2 mg/dL 04/30/2022 6:04 AM [facility] Alkaline Phosphatase 52 40 - 150 U/L 04/30/2022 6:04 AM [facility] ALT 101(H) 5 - 55 U/L 04/30/2022 6:04 AM [facility] AST 40(H) 5 - 34 U/L 04/30/2022 6:04 AM [facility] Anion Gap 13 8 - 18 04/30/2022 6:04 AM [facility] BUN/Creatinine Ratio 32(H) 7 - 23 04/30/2022 6:04 AM [facility] Osmolality Calculated 288 270 - 300 mOsm/kg 04/30/2022 6:04 AM CDT [facility] Albumin/Globulin Ratio 1.3 1.1 - 2.3 04/30/2022 6:04 AM CDT [facility] eGFR by CKD-EPI >90 >=90 mL/min/1.7 3 m2 04/30/2022 6:04 AM CDT [facility] Blood BLOOD SPECIMEN / Unknown Lab Venipuncture / Unknown 04/30/2022 4:54 AM CDT 04/30/2022 5:34 AM CDT Pedro Whaley MD LAB - CHEMISTRY ORDERABLES [facility] [address] [place] [address], [place] [phone] * HEPATITIS C AB SCREEN RFLX NAAT QUANT (04/27/2022 12:35 PM CDT) Hepatitis C Antibody Non-react dale Non-reac tive 04/27/2022 1:34 PM CDT [facility] Comment:Hepatitis C Antibody screen indicates no serologic evidence of past or current infection with Hepatitis C Virus. Patients with unexplained liver disease who are immunocompromised or suspected of having acute Hepatitis C infection may benefit from Nucleic Acid Test (LULY) for Hepatitis C Viral RNA to confirm Hepatitis C status. Blood BLOOD SPECIMEN / Unknown Lab Venipuncture / Unknown 04/27/2022 12:35 PM CDT 04/27/2022 12:46 PM CDT Rubio Driver MD LAB - CHEMISTRY JANET CHARLES [facility] [address] [place] [address], [place] [phone] from Last 3 Months or Most Recently Relevant to Health Maintenance Advance Directives * Full Code (Latest Code Status on File) Date Activated Date Inactivated Comments 04/26/2022 11:04 PM 04/30/2022 7:31 PM
--- OUTSIDE RECORDS SUMMARY | 2024-09-21 09:00 | XMS_ITS | Referral Summary ---
Author Organization [facility] Address [address] [place] [address] Care Team Providers Care Riding Instructor Name Role Phone Unavailable Primary Care Provider Unavailabl e Source Comments [facility],non-owned Affiliates and Associated Physician Practices is amultiple site organization consisting of ambulatory clinics and hospital sitesin [place], [place], [place] and [place]. This disclosure is being madepursuant to the Care Everywhere program and may not contain all information available regarding this patient. Last updated 18.[facility] Allergies No known active allergies Medications * [...] Mass Index 30.38 04/27/2022 10:07 AM CDT Functional Status Functional Status Response Date of Assess ment Is person deaf or have serious hearing difficult y? No 04/26/2022 Is person blind or have serious difficulty seein g? No 04/26/2022 Does person have serious dif ficulty walking/climbing stairs? No 04/26/2022 Does person have difficulty dressing/bathing? No 04/26/2022 Does person have difficulty doing errands alone? No 04/26/2022 Cognitive Status Response Date of Assessm ent Does person have difficulty concentrating/remembering/making decisions? No 04/26/2022 Plan of Treatment Not on file Procedures Procedure Name Priority Date/Time Associated Diagnosis Comments COMPREHENSIVE METABOLIC PANEL AM Draw 04/30/2022 4:54 AM CDT HEPATITIS C AB SCREEN RFLX NAAT QUANT Routine 04/27/2022 12:35 PM CDT from Last 3 Months or Most Recently Relevant to Health Maintenance Results * (ABNORMAL) COMPREHENSIVE METABOLIC PANEL (04/30/2022 4:54 AM CDT) BUN 23 7 - 26 mg/dL 04/30/2022 6:04 AM [facility] Creatinine 0.73 0.71 - 1.16 mg/dL 04/30/2022 6:04 AM [facility] Sodium 135(L) 136 - 145 mmol/L 04/30/2022 6:04 AM [facility] Potassium 4.3 3.5 - 4.5 mmol/L 04/30/2022 6:04 AM [facility] Chloride 107 98 - 107 mmol/L 04/30/2022 6:04 AM [facility] CO2 19(L) 22 - 29 mmol/L 04/30/2022 6:04 AM [facility] Glucose 171(H) 70 - 115 mg/dL 04/30/2022 6:04 AM [facility] Calcium 7.8(L) 8.4 - 10.2 mg/dL 04/30/2022 6:04 AM [facility] Protein Total 4.6(L) 6.0 - 8.3 g/dL 04/30/2022 6:04 AM [facility] Albumin 2.6(L) 3.4 - 5.0 g/dL 04/30/2022 6:04 AM [facility] Bilirubin Total 2.7(H) 0.2 - 1.2 mg/dL 04/30/2022 6:04 AM [facility] Alkaline Phosphatase 52 40 - 150 U/L 04/30/2022 6:04 AM [facility] ALT 101(H) 5 - 55 U/L 04/30/2022 6:04 AM [facility] AST 40(H) 5 - 34 U/L 04/30/2022 6:04 AM [facility] Anion Gap 13 8 - 18 04/30/2022 6:04 AM [facility] BUN/Creatinine Ratio 32(H) 7 - 23 04/30/2022 6:04 AM [facility] Osmolality Calculated 288 270 - 300 mOsm/kg 04/30/2022 6:04 AM [facility] Albumin/Globulin Ratio 1.3 1.1 - 2.3 04/30/2022 6:04 AM [facility] eGFR by CKD-EPI >90 >=90 mL/min/1.7 3 m2 04/30/2022 6:04 AM [facility] Blood BLOOD SPECIMEN / Unknown Lab Venipuncture / Unknown 04/30/2022 4:54 AM CDT 04/30/2022 5:34 AM CDT Pedro Whaley MD LAB - CHEMISTRY ORDERABLES Performing Organization Address [facility]/State/ZIP Co de Phone Number [facility] [address] [place] [phone], [facility] [phone] * HEPATITIS C AB SCREEN RFLX NAAT QUANT (04/27/2022 12:35 PM CDT) Hepatitis C Antibody Non-react dale Non-reac tive 04/27/2022 1:34 PM [facility] Comment:Hepatitis C Antibody screen indicates no [...] Rubio Driver MD LAB - CHEMISTRY JANET Kc Organization Address City/State/ZIP Co de Phone Number [facility] [address] [place] [address], [facility] [phone] from Last 3 Months or Most Recently Relevant to Health Maintenance Advance Directives * Full Code (Latest Code Status on File) Date Activated Date Inactivated Comments 04/26/2022 11:04 PM 04/30/2022 7:31 PM
--- OUTSIDE RECORDS SUMMARY | 2024-09-21 09:00 | XMS_ITS | Patient Health Summary ---
Author Organization [facility] Address [address] [place] [address] Care Team Providers Care Refrigerator Crater Name Role Phone Unavailable Primary Care Provider Unavailabl e Note from [facility],non-owned Affiliates and Associated Physician Practices is amultiple site organization consisting of ambulatory clinics and hospital sitesin [place], [place], [place] and [place]. This disclosure is being madepursuant to the Care Everywhere program and may not contain all information available regarding this patient. Last updated 18.[facility] Allergies No known active allergies Medications * Be aware that medications may not be up to date on this document. Alwaysverify current medications with the patient. * aspirin EC (Ecotrin) 81 MG tablet Take 81 mg by mouth once daily * fenofibrate (Lofibra) 160 MG tablet(Started 03/05/2022) Take 160 mg by mouth once daily * metoprolol tartrate IR (Lopressor) 100 MG tablet(Started 04/08/2022) TAKE 1/2 (ONE-HALF) TABLET BY MOUTH TWICE DAILY * insulin NPH pen(Started 04/30/2022) Inject 8 (eight) Units subcutaneously 2 times daily * folic acid (Folvite) 1 MG tablet(Started 05/01/2022) Take 1 (one) tablet by mouth once daily * sulfamethoxazole-trimethoprim (Bactrim DS; Septra DS) 800-160 MG tablet (Started 05/03/2022) Take 1 (one) tablet by mouth every Tuesday, Tuesday & Tuesday * famotidine (Pepcid) 20 MG tablet(Started 04/30/2022) Take 1 (one) tablet by mouth 2 times daily * insulin pen needle (Novofine 31) 31G X 5 MM needle(Started 04/30/2022) Use 1 (one) Each as instructed 2 times daily Active Problems Problem Noted Date Diagnosed Date [...] Mass Index 30.38 04/27/2022 10:07 AM CDT Procedures * PREPARE RBC LEUKOREDUCED UNIT(Performed 05/01/2022) * PREPARE RBC LEUKOREDUCED UNIT(Performed 05/01/2022) * KAPPA/LAMBDA LITE CHAIN FREE PANEL(Performed 04/30/2022) * CBC W AUTO DIFFERENTIAL(Performed 04/30/2022) * GLUCOSE - POINT OF CARE(Performed 04/30/2022) * CBC W AUTO DIFFERENTIAL(Performed 04/30/2022) * GLUCOSE - POINT OF CARE(Performed 04/30/2022) * GLUCOSE - POINT OF CARE(Performed 04/30/2022) * TRANSFUSE RED BLOOD CELL LEUKOREDUCED UNIT(S)(Performed 04/30/2022) * LDH BLOOD(Performed 04/30/2022) * CBC W AUTO DIFFERENTIAL(Performed 04/30/2022) * MAGNESIUM BLOOD(Performed 04/30/2022) * PHOSPHORUS BLOOD(Performed 04/30/2022) * COMPREHENSIVE METABOLIC PANEL(Performed 04/30/2022) * GLUCOSE - POINT OF CARE(Performed 04/29/2022) * GLUCOSE - POINT OF CARE(Performed 04/29/2022) * CBC W AUTO DIFFERENTIAL(Performed 04/29/2022) * GLUCOSE - POINT OF CARE(Performed 04/29/2022) * GLUCOSE - POINT OF CARE(Performed 04/29/2022) * CBC W AUTO DIFFERENTIAL(Performed 04/29/2022) * MAGNESIUM BLOOD(Performed 04/29/2022) * PHOSPHORUS BLOOD(Performed 04/29/2022) * COMPREHENSIVE METABOLIC PANEL(Performed 04/29/2022) * GLUCOSE - POINT OF CARE(Performed 04/28/2022) * GLUCOSE - POINT OF CARE(Performed 04/28/2022) * HEPATITIS B VIRUS DNA QUANT PCR(Performed 04/28/2022) * FERRITIN(Performed 04/28/2022) * CBC W AUTO DIFFERENTIAL(Performed 04/28/2022) * GLUCOSE - POINT OF CARE(Performed 04/28/2022) * CBC W AUTO DIFFERENTIAL(Performed 04/28/2022) * IMMUNOFIXATION BLOOD(Performed 04/28/2022) * ROSALIND BLOOD SCREEN W/REFLEX TITER(Performed 04/28/2022) * IRON + TRANSFERRIN PANEL(Performed 04/28/2022) * PROTEIN ELECTROPHORESIS BLOOD(Performed 04/28/2022) * IGA BLOOD(Performed 04/28/2022) * IGG BLOOD(Performed 04/28/2022) * IGM BLOOD(Performed 04/28/2022) * HEPATITIS B PANEL(Performed 04/28/2022) * MYCOPLASMA PNEUMONIAE AB IGG(Performed 04/28/2022) * MYCOPLASMA PNEUMONIAE AB IGM(Performed 04/28/2022) * PNH WBC+RBC PANEL(Performed 04/28/2022) * MAGNESIUM BLOOD(Performed 04/28/2022) * PHOSPHORUS BLOOD(Performed 04/28/2022) * COMPREHENSIVE METABOLIC PANEL(Performed 04/28/2022) * CBC W AUTO DIFFERENTIAL(Performed 04/27/2022) * TRANSFUSE RED BLOOD CELL LEUKOREDUCED UNIT(S)(Performed 04/27/2022) * PREPARE RBC LEUKOREDUCED UNIT(Performed 04/27/2022) * URINALYSIS REFLEX MICROSCOPIC REFLEX CULTURE(Performed 04/27/2022) * HEPATITIS B CORE ANTIBODY TOTAL(Performed 04/27/2022) Performed for Idiopathic hemolytic anemia (HCC) * HEPATITIS B SURFACE ANTIGEN W RFLX CONFIRMATION(Performed 04/27/2022) Performed for Idiopathic hemolytic anemia (HCC) * HEPATITIS C AB SCREEN RFLX NAAT QUANT(Performed 04/27/2022) * HIV-1 HIV-2 ANTIBODY + HIV P24 AG PANEL(Performed 04/27/2022) * CBC W AUTO DIFFERENTIAL(Performed 04/27/2022) * PATHOLOGY PERIPHERAL SMEAR REVIEW(Performed 04/27/2022) * CBC W AUTO DIFFERENTIAL(Performed 04/27/2022) * RENAL FUNCTION PANEL(Performed 04/27/2022) * TRANSFUSE RED BLOOD CELL LEUKOREDUCED UNIT(S)(Performed 04/27/2022) * BLOOD TYPE VERIFICATION(Performed 04/27/2022) * CYTOMEGALOVIRUS (CMV) QUANTITATIVE PLASMA(Performed 04/27/2022) * PHILIPP-HENDERSON VIRUS QUANT BLOOD STL(Performed 04/27/2022) * LUCRECIA DIRECT C3(Performed 04/27/2022) * LUCRECIA DIRECT IGG(Performed 04/27/2022) * LUCRECIA DIRECT(Performed 04/27/2022) * TYPE + SCREEN PANEL(Performed 04/27/2022) * VITAMIN B12(Performed 04/27/2022) * FOLATE(Performed 04/27/2022) * PHOSPHORUS BLOOD(Performed 04/27/2022) * MAGNESIUM BLOOD(Performed 04/27/2022) * COMPREHENSIVE METABOLIC PANEL(Performed 04/27/2022) * CBC W AUTO DIFFERENTIAL(Performed 04/27/2022) * FLOW CYTOMETRY BLOOD PROFILE(Performed 04/26/2022) Performed for Idiopathic hemolytic anemia (HCC) * HAPTOGLOBIN(Performed 04/26/2022) * RETIC COUNT(Performed 04/26/2022) * LDH BLOOD(Performed 04/26/2022) * PTT SLH(Performed 04/26/2022) * PT-INR [facility](Performed 04/26/2022) * FIBRINOGEN ACTIVITY(Performed 04/26/2022) * D-DIMER(Performed 04/26/2022) * URIC ACID BLOOD(Performed 04/26/2022) * PHOSPHORUS BLOOD(Performed 04/26/2022) * MAGNESIUM BLOOD(Performed 04/26/2022) * COMPREHENSIVE METABOLIC PANEL(Performed 04/26/2022) * CBC W AUTO DIFFERENTIAL(Performed 04/26/2022) * GROSS + MICRO EXAM(Performed 11/16/2007) Results * PREPARE (CROSSMATCH) RBC UNIT(S), 1 Units (05/01/2022 1:17 AM CDT) Only the most recent of3 resultswithin the time period is included. [facility] Unit Description N/A [facility] BLOOD BANK LAB Blood Bank BLOOD SPECIMEN / Unknown 04/27/2022 3:05 AM CDT Rubio Driver MD LAB - BLOOD BANK ORD ERABLES [facility] BLOOD BANK LAB [address] [place] [address], [facility] [phone] * KAPPA/LAMBDA LITE CHAIN FREE PANEL (04/30/2022 5:04 PM CDT) [facility] Nye Quant Free Light Chain 8.04 3.30 - 19.40 mg/L 05/04/2022 1:55 AM CDT [facility] ([facility]) Comment: INTERPRETIVE INFORMATION: Nye Qnt Free Light Chains Undetected antigen excess is a rare event but cannot be excluded. Free light chain results should always be interpreted in conjunction with other clinical and laboratory findings. Lambda Free Light Chain Quantitative 10.04 5.71 - 26.30 mg/L 05/04/2022 1:55 AM CDT [facility] ([facility]) Comment: INTERPRETIVE INFORMATION: Lambda Qnt Free Light Chains Undetected antigen excess is a rare event but cannot be excluded. Free light chain results should always be interpreted in conjunction with other clinical and laboratory findings. Nye/Lambda Free Light Chain ratio 0.80 0.26 - 1.65 05/04/2022 1:55 AM CDT [facility] ([facility]) Comment: Performed By: [facility] [employer] [address] [place] [address] Human Resources Psychologist: Shay Hargrove MD, PhD Blood BLOOD SPECIMEN / Unknown Lab Venipuncture / Unknown 04/30/2022 5:04 PM CDT 04/30/2022 5:14 PM CDT Rubio Driver MD LAB - CHEMISTRY ORDE MELVIN [facility] ([facility]) [address] [place] [address], [facility] * (ABNORMAL) CBC W AUTO DIFFERENTIAL (04/30/2022 5:04 PM CDT) Only the most recent of12 resultswithin the time period is included. WBC 15.9(H) 3.5 - 10.5 10 3/uL 04/30/2022 8:12 PM CDT [facility] Comment:The WBC count is cor rected by the instrument for nRBC's RBC 3.31(L) 4.30 - 5.70 10 6/uL 04/30/2022 8:12 PM CDT [facility] Hemoglobin 10.0(L) 12.0 - 17.6 g/dL 04/30/2022 8:12 PM T [facility] Hematocrit 29.5(L) 35.2 - 51.7 % 04/30/2022 8:12 PM CDT [facility] MCV 89.1 80.7 - 98.3 fL 04/30/2022 8:12 PM CDT [facility] MCH 30.2 26.7 - 34.0 pg 04/30/2022 8:12 PM CDT [facility] MCHC 33.9 30.8 - 35.9 g/dL 04/30/2022 8:12 PM CDT [facility] Platelet Count 61(L) 150 - 400 10 3/uL 04/30/2022 8:12 PM [facility] Comment: Checked by peripheral smear. This is an appended report. These results have been appended to a previously preliminary verified report. RDW-SD 48.1 36.0 - 50.0 fL 04/30/2022 8:12 PM [facility] RDW-CV 15.7(H) 11.2 - 14.8 % 04/30/2022 8:12 PM [facility] MPV 04/30/2022 8:12 PM [facility] Comment:Unable to Report Immature Platelet Fraction 04/30/2022 8:12 PM [facility] Comment:Unable to Report nRBC Absolute 0.29(H) 0 10 3/uL 04/30/2022 8:12 PM [facility] nRBC Auto 1.8(H) 0 /100 WBC 04/30/2022 8:12 PM [facility] Neutrophils % 91.3(H) 35.0 - 70.0 % 04/30/2022 8:12 PM [facility] Lymphocytes % 1.4(L) 20.0 - 43.0 % 04/30/2022 8:12 PM [facility] Monocytes % 2.3(L) 5.0 - 13.0 % 04/30/2022 8:12 PM [facility] Eosinophils % 0.2 0.0 - 6.0 % 04/30/2022 8:12 PM [facility] Basophil % 1.9 0.0 - 2.0 % 04/30/2022 8:12 PM [facility] Neutrophils Absolute 14.54(H) 1.60 - 7.00 10 3/uL 04/30/2022 8:12 PM [facility] Lymphocyte Absolute 0.23(L) 1.10 - 3.90 10 3/uL 04/30/2022 8:12 PM [facility] Monocytes Absolute 0.36 0.26 - 1.07 10 3/uL 04/30/2022 8:12 PM [facility] Eosinophils Absolute 0.03 0.00 - 0.47 10 3/uL 04/30/2022 8:12 PM [facility] Basophils Absolute 0.31(H) 0.00 - 0.08 10 3/uL 04/30/2022 8:12 PM CDT [facility] Immature Granulocytes % 2.9(H) 0.0 - 1.0 % 04/30/2022 8:12 PM CDT [facility] Immature Granulocytes Absolute 0.47 04/30/2022 8:12 PM CDT [facility] Blood BLOOD SPECIMEN / Unknown Lab Venipuncture / Unknown 04/30/2022 5:04 PM CDT 04/30/2022 5:18 PM CDT Rubio Driver MD LAB - HEMATOLOGY ORD ERABLES Performing Organization Address City/[facility]/ZIP Co de Phone Number [address] [address], [place] [phone] * (ABNORMAL) GLUCOSE - POINT OF CARE (04/30/2022 4:05 PM CDT) Only the most recent of10 resultswithin the time period is included. [facility] Glucose WB/POC 319(H) 70 - 115 mg/dL 04/30/2022 4:05 PM CDT [facility] Specimen Type Arterial 04/30/2022 4:05 PM CDT [facility] Blood BLOOD SPECIMEN / Unknown 04/30/2022 4:05 PM CDT 04/30/2022 4:05 PM CDT Rubio Driver MD LAB - POINT OF CARE ORDERABLES Performing Organization Address City/[facility]/ZIP Co de Phone Number [address] [address], [place] [phone] * TRANSFUSE RED BLOOD CELL LEUKOREDUCED UNIT(S) (04/30/2022 10:54 AM CDT) Rubio Driver MD NURSING - BLOOD PROD TRANSFUSION * (ABNORMAL) COMPREHENSIVE METABOLIC PANEL (04/30/2022 4:54 AM CDT) Only the most recent of5 resultswithin the time period is included. Pathologist [facility] BUN 23 7 - 26 mg/dL 04/30/2022 6:04 AM [facility] Creatinine 0.73 0.71 - 1.16 mg/dL 04/30/2022 6:04 AM [facility] Sodium 135(L) 136 - 145 mmol/L 04/30/2022 6:04 AM [facility] Potassium 4.3 3.5 - 4.5 mmol/L 04/30/2022 6:04 AM [facility] Chloride 107 98 - 107 mmol/L 04/30/2022 6:04 AM [facility] CO2 19(L) 22 - 29 mmol/L 04/30/2022 6:04 AM [facility] Glucose 171(H) 70 - 115 mg/dL 04/30/2022 6:04 AM [facility] Calcium 7.8(L) 8.4 - 10.2 mg/dL 04/30/2022 6:04 AM [facility] Protein Total 4.6(L) 6.0 - 8.3 g/dL 04/30/2022 6:04 AM [facility] Albumin 2.6(L) 3.4 - 5.0 g/dL 04/30/2022 6:04 AM [facility] Bilirubin Total 2.7(H) 0.2 - 1.2 mg/dL 04/30/2022 6:04 AM [facility] Alkaline Phosphatase 52 40 - 150 U/L 04/30/2022 6:04 AM [facility] ALT 101(H) 5 - 55 U/L 04/30/2022 6:04 AM [facility] AST 40(H) 5 - 34 U/L 04/30/2022 6:04 AM [facility] Anion Gap 13 8 - 18 04/30/2022 6:04 AM [facility] BUN/Creatinine Ratio 32(H) 7 - 23 04/30/2022 6:04 AM [facility] Osmolality Calculated 288 270 - 300 mOsm/kg 04/30/2022 6:04 AM [facility] Albumin/Globulin Ratio 1.3 1.1 - 2.3 04/30/2022 6:04 AM [facility] eGFR by CKD-EPI >90 >=90 mL/min/1.7 3 m2 04/30/2022 6:04 AM CDT [facility] Blood BLOOD SPECIMEN / Unknown Lab Venipuncture / Unknown 04/30/2022 4:54 AM CDT 04/30/2022 5:34 AM CDT Pedro Whaley MD LAB - CHEMISTRY ORDERABLES Performing Organization Address City/[facility]/ZIP Co de Phone Number [address] [address], [facility] [phone] * (ABNORMAL) PHOSPHORUS BLOOD (04/30/2022 4:54 AM CDT) Only the most recent of5 resultswithin the time period is included. Phosphorus 2.5(L) 2.8 - 5.1 mg/dL 04/30/2022 6:04 AM CDT [facility] Blood BLOOD SPECIMEN / Unknown Lab Venipuncture / Unknown 04/30/2022 4:54 AM CDT 04/30/2022 5:34 AM CDT Pedro Whaley MD LAB - CHEMISTRY ORDERABLES Performing Organization Address City/[facility]/ZIP Co de Phone Number [address] [address], [place] [phone] * MAGNESIUM BLOOD (04/30/2022 4:54 AM CDT) Only the most recent of5 resultswithin the time period is included. Magnesium 2.3 1.6 - 2.6 mg/dL 04/30/2022 6:04 AM CDT [facility] Blood BLOOD SPECIMEN / Unknown Lab Venipuncture / Unknown 04/30/2022 4:54 AM CDT 04/30/2022 5:34 AM CDT Pedro Whaley MD LAB - CHEMISTRY ORDERABLES Performing Organization Address City/[facility]/ZIP Co de Phone Number [address] [address], [facility] [phone] * (ABNORMAL) LDH BLOOD (04/30/2022 4:54 AM CDT) Only the most recent of2 resultswithin the time period is included. [facility] LDH Total 494(H) 125 - 243 Units/L 04/30/2022 6:04 AM CDT [facility]ORAT[facility] Blood BLOOD SPECIMEN / Unknown Lab Venipuncture / Unknown 04/30/2022 4:54 AM CDT 04/30/2022 5:34 AM CDT Rubio Driver MD LAB - CHEMISTRY ORDE MELVIN [facility]ORAT[facility] [address] [address], [facility] [phone] * HEPATITIS B VIRUS DNA QUANT PCR (04/28/2022 3:28 PM CDT) [facility] Hepatitis B Virus IU/mL HBV DNA not detected IU/mL 05/01/2022 3:08 PM CDT [facility] ([facility]) log10 HBV IU/mL TNP log10 IU/mL 05/01/2022 3:08 PM CDT [facility] ([facility]) Comment: Unable to calculate result since non-numeric result obtained for component test. Test Information Comment 05/01/2022 3:08 PM CDT [facility] ([facility]) Comment:The reportable range for this assay is 10 IU/mL to 1 billion IU/mL. Blood BLOOD SPECIMEN / Unknown Lab Venipuncture / Unknown 04/28/2022 3:28 PM CDT 04/28/2022 3:31 PM CDT Narrative [facility] ([facility]) - 05/01/2022 3:08 PM CDT Performed at: 01 - [address] [id number] Concrete Floor Installer: Bebeto Luque MD, Phone: [phone] Rubio Driver MD LAB - SEROLOGY ORDER MELANY [facility] ([facility]) [address] [place] [address], [place] * (ABNORMAL) FERRITIN (04/28/2022 3:28 PM CDT) Ferritin 4,358(H) 22 - 275 ng/mL 04/28/2022 5:02 PM CDT [facility] Comment:Result obtained by charlotte garcia. Blood BLOOD SPECIMEN / Unknown Lab Venipuncture / Unknown 04/28/2022 3:28 PM CDT 04/28/2022 3:31 PM CDT Rubio Driver MD LAB - CHEMISTRY JANET CHARLES [facility] [place] Organization Address City/State/ZIP Co de Phone Number [address] [address], [facility] [phone] * (ABNORMAL) MYCOPLASMA PNEUMONIAE AB IGG (04/28/2022 4:28 AM CDT) Pathologist [facility] Mycoplasma Antibody IgG 0.21(H) <=0.09 U/L 05/02/2022 3:01 PM CDT [facility] ([facility]) Comment: INTERPRETIVE INFORMATION: Mycoplasma pneumoniae Ab, IgG 0.09 U/L or less ............ Negative 0.10 - 0.32 U/L ............. Equivocal 0.33 U/L or greater ......... Positive INTERPRETIVE DATA: Over 50% of healthy adults have a relatively high background of specific M. pneumoniae IgG antibodies in their sera, probably because of past M. pneumoniae infections. Therefore, paired sera obtained with a time interval of 1 to 3 weeks are highly recommended in adults to confirm reinfection by M. pneumoniae, which is demonstrated by a significant change in IgG antibodies. A significant change is indicated if one sample is above 0.32 U/L and the other is below 0.20 U/L. Performed By: [facility] [address] [place] [id number] Human Resources Psychologist: Shay Hargrove MD, PhD Blood BLOOD SPECIMEN / Unknown Lab Venipuncture / Unknown 04/28/2022 4:28 AM CDT 04/28/2022 4:35 AM CDT Rubio Driver MD LAB - SEROLOGY ORDER MELANY [facility]) [address] [place], [place] [address] * (ABNORMAL) IMMUNOFIXATION BLOOD (04/28/2022 4:28 AM CDT) Pathologist [facility] Immunofixation Serum Abnormal Pattern(A) Normal Pattern 04/29/2022 8:55 PM CDT [facility] Comment: Serum immunosubtraction identifies an IgG kappa monoclonal immunoglobulin migrating in the gamma region. Verónica Osei MD Pathology Resident *The electrophoresis pattern and the interpretation have been reviewed and verified by the teaching physician. Blood BLOOD SPECIMEN / Unknown Lab Venipuncture / Unknown 04/28/2022 4:28 AM CDT 04/28/2022 4:35 AM CDT Rubio Driver MD LAB - CHEMISTRY ORDE MELVIN [facility] [address] [place] [address], [facility] [phone] * PNH WBC+RBC PANEL (04/28/2022 4:28 AM CDT) [facility] % PNH Cells RBC <0.008 0.000 - 0.008 % 04/30/2022 3:47 PM CDT [facility] ([facility]) Comment: INTERPRETIVE INFORMATION: PNH Panel, High Sensitivity, (RBC, WBC) This test is preferred for the initial diagnosis of PNH, and was developed according to published guidelines (Cytometry B Clin. Cytom. 2010; 78:211) and as updated in 2018 (Cytometry B Clin. Cytom. 2018; 94B:49). The test includes high-sensitivity WBC and RBC analysis with a lower limit of quantification of 0.02 percent for PNH RBCs and PMNs (based on 250,000 cells analyzed) and 0.5 percent or better for PNH monocytes (based on 10,000 cells analyzed). The lower limit of detection for PNH RBCs and PMNs is 0.008 percent and for PNH monocytes 0.2 percent. For severely pancytopenic patients, the WBC assay sensitivity will be much lower. WBC analysis is the most accurate measurement of the PNH clone size. FLAER and CD157 are used as GPI-linked markers; CD15 (PMNs) and CD64 (monocytes) are used as lineage-specific markers. RBC analysis quantifies Type II and Type III RBC clones when the percentage of PNH RBCs is greater than 1 percent. Glycophorin A ([id number]) is used to gate the RBC population, and CD59 is the GPI-linked antigen. Recent RBC transfusions may decrease the percentage of PNH cells measured in RBCs (Cytometry 2000; 42:223). The presence of a subclinical PNH population in myelodysplastic bone marrow disorders, such as aplastic anemia or refractory anemia, may correlate with a positive immunotherapeutic response (Blood 2006; 107, 7288-1072). Patient Retesting Recommendations: The frequency of testing is dictated by clinical and hematological parameters; repeat testing is indicated upon any significant change in clinical or laboratory parameters and is suggested at least annually for routine monitoring. In the setting of aplastic anemia, international guidelines recommend screening for PNH at diagnosis, and every 3 to 6 months initially, reducing the frequency of testing if the proportion of GPI-deficient cells has remained stable over an initial two year period (Int J Lab Hematol 2019;41 Suppl 1:73-81). This test was developed and its performance characteristics determined by [facility]. It has not been cleared or approved by the US Food and Drug Administration. This test was performed in a CLIA certified laboratory and is intended for clinical purposes. Performed by [facility], [address] [place] [id number] [email or web address], Shay Hargrove MD, PHD, Lab. Director PNH Phenotype Neutrophil Not Detected Not Detected 04/30/2022 3:47 PM CDT [facility] ([facility]) % Normal PMNs <0.008 0.000 - 0.008 % 04/30/2022 3:47 PM CDT [facility] ([facility]) PNH Phenotype Monocyte Not Detected Not Detected 04/30/2022 3:47 PM CDT [facility] ([facility]) PNH Profile WBC <0.200 0.000 - 0.200 % 04/30/2022 3:47 PM CDT [facility] ([facility]) Comment: Suboptimal number of events were collected for monocytes. This may affect the sensitivity of the assay. Please interpret with caution. PNH Phenotype RBC Not Detected Not Detected 04/30/2022 3:47 PM CDT [facility] [employer] ([facility]) Blood BLOOD SPECIMEN / Unknown Lab Venipuncture / Unknown 04/28/2022 4:28 AM CDT 04/28/2022 4:38 AM CDT Rubio Driver MD LAB - CHEMISTRY ORDE MELVIN [facility] [employer] ([facility]) [address] * MYCOPLASMA PNEUMONIAE AB IGM (04/28/2022 4:28 AM CDT) [facility] Mycoplasma Antibody IgM 0.23 <=0.76 U/L 04/30/2022 4:31 PM CDT [facility] [employer] ([facility]) Comment: INTERPRETIVE INFORMATION: Mycoplasma pneumoniae Ab, IgM 0.76 U/L or less .......... Negative: No clinically significant amount of M. pneumoniae IgM antibody detected. 0.77 - 0.95 U/L ........... Low Positive: M. pneumoniae- specific IgM presumptively detected. Collection of a follow-up sample in 1-2 weeks is recommended to assure reactivity. 0.96 U/L or greater ....... Positive: Highly significant amount of M. pneumoniae- specific IgM antibody detected. However, low levels of IgM antibodies may occasionally persist for more than 12 months post-infection. Performed By: [employer] [facility] [place] [address] Human Resources Psychologist: Shay Hargrove MD, PhD Blood BLOOD SPECIMEN / Unknown Lab Venipuncture / Unknown 04/28/2022 4:28 AM CDT 04/28/2022 4:35 AM CDT Rubio Driver MD LAB - SEROLOGY ORDER MELANY Performing Organization Address [facility]/ZIP Co de Phone Number [facility] [employer] ([facility]) [address] * ROSALIND BLOOD SCREEN W/REFLEX TITER (04/28/2022 4:28 AM CDT) ROSALIND IgG None Detected None Detected 04/30/2022 4:07 AM CDT [facility] [employer] ([facility]) Comment: If suspicion of connective tissue disease is strong and ROSALIND EIA is negative, consider testing for ROSALIND by IFA ([id number]). INTERPRETIVE INFORMATION: Anti-Nuclear Antibodies (ROSALIND), IgG by KOLBY Antinuclear Antibodies (ROSALIND), IgG by KOLBY: ROSALIND specimens are screened using enzyme-linked immunosorbent assay (KOLBY) methodology. All KOLBY results reported as Detected are further tested by indirect fluorescent assay (IFA) using HEp-2 substrate with an IgG-specific conjugate. The ROSALIND KOLBY screen is designed to detect antibodies against dsDNA, histones, SS-A (Ro), SS-B (La), Ruff, Ruff/COMMUNITY SPECIALIST, Scl-70, Chrissie-1, centromeric proteins, other antigens extracted from the HEp-2 cell nucleus. ROSALIND KOLBY assays have been reported to have lower sensitivities than ROSALIND IFA for systemic autoimmune rheumatic diseases (SARD). Negative results do not necessarily rule out SARD. Performed By: [employer] [address] [place] [address] Human Resources Psychologist: Shay Hargrove MD, PhD Blood BLOOD SPECIMEN / Unknown Lab Venipuncture / Unknown 04/28/2022 4:28 AM CDT 04/28/2022 4:35 AM CDT Rubio Driver MD LAB - CHEMISTRY JANET CHARLES [facility] [employer] [facility]) [address] [place] [address], [facility] * (ABNORMAL) PROTEIN ELECTROPHORESIS BLOOD (04/28/2022 4:28 AM CDT) Interpretation Serum PE Abnormal Pattern(A) Normal Pattern 04/29/2022 8:55 PM CDT [facility] Comment: Serum capillary electrophoresis shows characteristic bands corresponding to albumin, alpha and beta globulins and polyclonal immunoglobulins. There is a band of restricted electrophoretic mobility in the gamma region that may represent a monoclonal immunoglobulin. Serum immunosubtraction studies to follow. Verónica Osei MD Pathology Resident *The electrophoresis pattern and the interpretation have been reviewed and verified by the teaching physician. Protein Total 4.8(L) 6.0 - 8.3 g/dL 04/29/2022 8:55 PM CDT [facility] Albumin 2.9(L) 3.3 - 5.6 g/dL 04/29/2022 8:55 PM CDT [facility] Alpha-1 Globulins 0.2 0.2 - 0.4 g/dL 04/29/2022 8:55 PM CDT [facility] Alpha-2 Globulins 0.4(L) 0.5 - 1.0 g/dL 04/29/2022 8:55 PM CDT [facility] Beta Globulins 0.5(L) 0.6 - 1.1 g/dL 04/29/2022 8:55 PM T [facility] Gamma Globulins 0.7 0.6 - 1.6 g/dL 04/29/2022 8:55 PM T [facility] Monoclonal Component(s) 0.2(H) None Detected g/dL 04/29/2022 8:55 PM T [facility] Blood BLOOD SPECIMEN / Unknown Lab Venipuncture / Unknown 04/28/2022 4:28 AM CDT 04/28/2022 4:35 AM CDT Rubio Driver MD LAB - CHEMISTRY OR[facility] Organization Address City/State/ZIP Co de Phone Number [facility] [address] [place] [address], [facility] [phone] * (ABNORMAL) IRON + TRANSFERRIN PANEL (04/28/2022 4:28 AM CDT) Iron 255(H) 50 - 175 ug/dL 04/28/2022 5:16 AM CDT [facility] Transferrin 195 174 - 382 mg/dL 04/28/2022 5:16 AM CDT [facility] Transferrin Saturation % 100(H) 16 - 50 % 04/28/2022 5:16 AM T [facility] TIBC Calculated 244 240 - 450 ug/dL 04/28/2022 5:16 AM CDT [facility] Blood BLOOD SPECIMEN / Unknown Lab Venipuncture / Unknown 04/28/2022 4:28 AM CDT 04/28/2022 4:35 AM CDT Rubio Driver MD LAB - CHEMISTRY JANET CHARLES [address] [address], [place] [phone] * IGM BLOOD (04/28/2022 4:28 AM CDT) Pathologist [facility] IgM 66 37 - 286 mg/dL 04/28/2022 5:16 AM CDT [facility] Blood BLOOD SPECIMEN / Unknown Lab Venipuncture / Unknown 04/28/2022 4:28 AM CDT 04/28/2022 4:35 AM CDT Rubio Driver MD LAB - CHEMISTRY JANET CHARLES Performing Organization Address City/[facility]/ZIP Co de Phone Number [address] [address], [place] [phone] * IGG BLOOD (04/28/2022 4:28 AM CDT) Pathologist [facility] IgG 899 767 - 1,590 mg/dL 04/28/2022 5:16 AM CDT [facility] Blood BLOOD SPECIMEN / Unknown Lab Venipuncture / Unknown 04/28/2022 4:28 AM CDT 04/28/2022 4:35 AM CDT Rubio Driver MD LAB - CHEMISTRY JANET CHARLES Performing Organization Address City/[facility]/ZIP Co de Phone Number [address] [address], [place] [phone] * (ABNORMAL) HEPATITIS B PANEL (04/28/2022 4:28 AM CDT) Pathologist [facility] Hepatitis B Virus Surface Antibody Indetermi petar(A) Non-react dale 04/28/2022 6:40 AM CDT [facility] Comment: Indeterminate for Hepatitis B Surface Antibody - the immune status of the individual should be further assessed by considering other factors such as clinical status, followup testing, associated risk factors, and the use of additional diagnostic information. Confirmed by repeat analysis. Hepatitis B Virus Surface Antigen Non-react dale Non-react dale 04/28/2022 6:40 AM CDT [facility] Hepatitis B Core Virus Antibody IgM Non-react dale Non-react dale 04/28/2022 6:40 AM CDT [facility] Blood BLOOD SPECIMEN / Unknown Lab Venipuncture / Unknown 04/28/2022 4:28 AM CDT 04/28/2022 4:35 AM CDT Rubio Driver MD LAB - CHEMISTRY JANET CHARLES Performing Organization Address City/[facility]/ZIP Co de Phone Number [address] [address], [place] [phone] * IGA BLOOD (04/28/2022 4:28 AM CDT) IgA 118 61 - 356 mg/dL 04/28/2022 5:16 AM CDT [facility] Blood BLOOD SPECIMEN / Unknown Lab Venipuncture / Unknown 04/28/2022 4:28 AM CDT 04/28/2022 4:35 AM CDT Rubio Driver MD LAB - CHEMISTRY JANET CHARLES Performing Organization Address City/[facility]/ZIP Co de Phone Number [address] [address], [place] [phone] * TRANSFUSE RED BLOOD CELL LEUKOREDUCED UNIT(S) (04/27/2022 5:32 PM CDT) Ruibo Driver MD NURSING - BLOOD PROD TRANSFUSION * (ABNORMAL) URINALYSIS REFLEX MICROSCOPIC REFLEX CULTURE (04/27/2022 2:30 PM CDT) Color UA Yellow Straw, Yellow 04/27/2022 3:18 PM CDT [facility] Clarity UA Clear Clear 04/27/2022 3:18 PM CDT [facility] Specific [place] UA 1.015 1.005 - 1.030 04/27/2022 3:18 PM CDT [facility] pH UA 7.0 5.0 - 8.0 pH 04/27/2022 3:18 PM CDT [facility] Protein UA Negative Negative 04/27/2022 3:18 PM CDT [facility] Glucose UA 2+(A) Negative 04/27/2022 3:18 PM CDT [facility] Ketone UA Negative Negative 04/27/2022 3:18 PM CDT [facility] Bilirubin UA Negative Negative 04/27/2022 3:18 PM CDT [facility] Blood UA Negative Negative 04/27/2022 3:18 PM CDT [facility] Nitrite UA Negative Negative 04/27/2022 3:18 PM CDT [facility] Leukocyte Esterase Negative Negative 04/27/2022 3:18 PM CDT [facility] Urobilinogen UA 2.0(A) Negative mg/dL 04/27/2022 3:18 PM T [facility] Comment UA Microscopic not indicated. 04/27/2022 3:18 PM CDT [facility] Urine URINE SPECIMEN OBTAINED BY CLEAN CATCH PROCEDURE / Unknown Collection / Unknown 04/27/2022 2:30 PM CDT 04/27/2022 2:42 PM CDT Rubio Driver MD LAB - URINALYSIS ORD ERABLES [address] [address], [facility] [phone] * HEPATITIS C AB SCREEN RFLX NAAT QUANT (04/27/2022 12:35 PM CDT) Hepatitis C Antibody Non-react dale Non-reac tive 04/27/2022 1:34 PM CDT [facility] Comment:Hepatitis C Antibody screen indicates no [...] Driver MD LAB - CHEMISTRY JANET CHARLES Performing Organization Address City/[facility]/ZIP Co de Phone Number [address] [address], [place] [phone] * HIV-1 HIV-2 ANTIBODY + HIV P24 AG PANEL (04/27/2022 12:35 PM CDT) HIV Antigen/Antibod y 1 & 2 Non-reacti ve Non-react dale 04/27/2022 1:34 PM CDT [facility] Comment:No Laboratory eviden ce of HIV infection. Blood BLOOD SPECIMEN / Unknown Lab Venipuncture / Unknown 04/27/2022 12:35 PM CDT 04/27/2022 12:46 PM CDT Rubio Driver MD LAB - CHEMISTRY JANET CHARLES Performing Organization Address [facility]/ZIP Co de Phone Number [address] [address], [place] [phone] * HEPATITIS B CORE ANTIBODY TOTAL (04/27/2022 12:35 PM CDT) Pathologist [facility] HBc Antibody Total Non-reacti ve Non-reacti ve 04/27/2022 4:52 PM CDT [facility] Blood BLOOD SPECIMEN / Unknown Venipuncture / Unknown 04/27/2022 12:35 PM CDT 04/27/2022 4:16 PM CDT Shalonda Sousa MD LAB - THREAD PULLER RY ORDERABLES Performing Organization Address [facility]/ZIP Co de Phone Number [address] [address], [place] [phone] * HEPATITIS B SURFACE ANTIGEN W RFLX CONFIRMATION (04/27/2022 12:35 PM CDT) Hepatitis B Virus Surface Antigen Non-reacti ve Non-reacti ve 04/27/2022 4:52 PM CDT [facility] Blood BLOOD SPECIMEN / Unknown Venipuncture / Unknown 04/27/2022 12:35 PM CDT 04/27/2022 4:16 PM CDT Shalonda Sousa MD LAB - THREAD PULLER RY ORDERABLES Performing Organization Address [facility]/ZIP Co de Phone Number [facility] [address] [place] [address], [facility] [phone] * PATHOLOGY PERIPHERAL SMEAR REVIEW (04/27/2022 8:41 AM CDT) Pathology Diff Review 04/28/2022 12:56 PM CDT [facility] Comment: Final diagnosis: Peripheral blood, smear: - Leukocytosis due to neutrophilia - Mild thrombocytopenia Review of the peripheral blood smear confirms the CBC data. Leukocytes are moderately increased in number overall due to absolute neutrophilia. Many neutrophils are hypersegmented, and some are hypergranular with occasional cytoplasmic vacuolizations. There is no significant left shift and no blasts are noted. Lymphocytes are slightly decreased, and are small and mature. RBCs are normocytic, normochromic, and decreased in number with moderate anisocytosis. There are occasional mary cells, rare acanthocytes and spherocytes/microspherocytes, and no schistocytes. Platelets are mildly decreased. Overall, these findings are nonspecific and may indicate acute inflammation/infection. There is no significant morphologic evidence of hemolysis. Correlation with clinical findings and results of concurrent flow cytometry is recommended. Clinical history: This 66 year-old male patient with HTN, HLD, pre-DM, and nephrolithiasis was initially admitted to an OSH with jaundice and hematuria. Autoimmune hemolytic anemia is the suspected diagnosis. Blood bank antibody screen is negative, but DOYLE is positive with the anti-C3 reagent. Cherrie Walsh MD Attending Physician Transfusion Medicine and Clinical Pathology Blood BLOOD SPECIMEN / Unknown Lab Venipuncture / Unknown 04/27/2022 8:41 AM CDT 04/27/2022 8:52 AM CDT Rubio Driver MD LAB - PATHOLOGY/CYTO LOGY ORDERABLES [facility] [address] [place] [address], [facility] [phone] * (ABNORMAL) RENAL FUNCTION PANEL (04/27/2022 8:41 AM CDT) BUN 37(H) 7 - 26 mg/dL 04/27/2022 9:16 AM [facility] Creatinine 0.94 0.71 - 1.16 mg/dL 04/27/2022 9:16 AM [facility] Sodium 139 136 - 145 mmol/L 04/27/2022 9:16 AM [facility] Potassium 3.8 3.5 - 4.5 mmol/L 04/27/2022 9:16 AM [facility] Chloride 106 98 - 107 mmol/L 04/27/2022 9:16 AM [facility] CO2 22 22 - 29 mmol/L 04/27/2022 9:16 AM [facility] Glucose 210(H) 70 - 115 mg/dL 04/27/2022 9:16 AM [facility] Albumin 2.9(L) 3.4 - 5.0 g/dL 04/27/2022 9:16 AM [facility] Calcium 8.4 8.4 - 10.2 mg/dL 04/27/2022 9:16 AM [facility] Phosphorus 2.9 2.8 - 5.1 mg/dL 04/27/2022 9:16 AM [facility] Anion Gap 15 8 - 18 04/27/2022 9:16 AM [facility] BUN/Creatinine Ratio 39(H) 7 - 23 04/27/2022 9:16 AM [facility] Osmolality Calculated 303(H) 270 - 300 mOsm/kg 04/27/2022 9:16 AM [facility] eGFR by CKD-EPI 90 >=90 mL/min/1.7 3 m2 04/27/2022 9:16 AM [facility] Blood BLOOD SPECIMEN / Unknown Lab Venipuncture / Unknown 04/27/2022 8:41 AM CDT 04/27/2022 8:52 AM CDT Pedro Whaley MD LAB - CHEMISTRY ORDERABLES [facility] [address] [place] [address], [facility] [phone] * TRANSFUSE RED BLOOD CELL LEUKOREDUCED UNIT(S) (04/27/2022 7:05 AM CDT) Pedro Whaley MD NURSING - BLOOD PROD TRANSFUSION * CYTOMEGALOVIRUS (CMV) QUANTITATIVE PLASMA (04/27/2022 4:07 AM CDT) Pathologist [facility] CMV Quant by PCR, Interp Not detected Not detected 04/28/2022 2:04 PM CDT [facility] Blood BLOOD SPECIMEN / Unknown Lab Venipuncture / Unknown 04/27/2022 4:07 AM CDT 04/27/2022 4:16 AM CDT Narrative [facility] - 04/28/2022 2:04 PM CDT The CMV DNA analysis utilized real-time PCR, and is reported as Not Detected, Detected (<50 IU/mL) [or Detected (<1.70 log IU/mL], 50 156,000,000 IU/mL [or 1.70 to 8.19 log IU/mL], or >156,000,000 IU/mL [>8.19 log IU/mL]. The analytic sensitivity (LOD) of the assay is 31.20 IU/mL [1.49 log IU/mL] (100% of samples with this CMV/DNA level were detected). Linear range of the assay is 50 156,000,000 IU/ml [or 1.70 to 8.19 log IU/mL]. The detection/quantitation of CMV DNA in plasma is based on the isolation of CMV DNA followed by real-time PCR in the presence of reference standard DNA. The standard ensures that DNA was isolated, and that no general significant inhibitors of the real-time PCR process were present. Absolute CMV values or breakpoints for symptomatic disease have not been established and appear to be different between patient populations and laboratories. Therefore, it is important to monitor patients and to follow increases and/or decreases in the level of CMV in multiple blood specimens. The analysis was performed using an [place] FDA approved test methodology (Fisher RealTime CMV). Pedro Whaley MD LAB - CHEMISTRY ORDERABLES Performing Organization Address [facility] Co de Phone Number [facility] [address] [place] [address], [facility] [phone] * PHILIPP-HENDERSON VIRUS QUANT BLOOD STL (04/27/2022 4:07 AM CDT) [facility] EBV Quant by PCR, Interp Not detected Not detected 04/28/2022 2:29 PM CDT [facility] Specimen Type Plasma 04/28/2022 2:29 PM CDT [facility] Blood BLOOD SPECIMEN / Unknown Lab Venipuncture / Unknown 04/27/2022 4:07 AM CDT 04/27/2022 4:16 AM CDT Narrative [facility] - 04/28/2022 2:29 PM CDT DNA isolated from the plasma was analyzed in a qPCR assay to detect and quantify Philipp-Henderson DNA. An internal control is included to evaluate for PCR inhibition. The quantitative range of this assay is 500 IU/mL to 5,000,000 IU/mL. Values below 500 IU/mL will be reported as Detected (<500 IU/mL). This test was developed and its performance characteristics determined by [facility]. It has not been cleared or approved by the U.S. Food and Drug Administration. The FDA has determined that such clearance or approval is not necessary. The test is used for clinical purposes. It should not be regarded as investigational or for research. This laboratory is certified under the Clinical Laboratory Improvement Amendments of 1988(CLIA-88) as qualified to perform high complexity clinical laboratory testing. Pedro Whaley MD LAB - CHEMISTRY ORDERABLES Performing Organization Address [facility] Co de Phone Number [facility] [address] [place] [address], [facility] [phone] * BLOOD TYPE VERIFICATION (04/27/2022 4:07 AM CDT) Pathologist [facility] ABO Rh A POS 04/27/2022 4:4 9 AM CDT [facility] BLOOD BANK LAB Blood Bank BLOOD SPECIMEN / Unknown Lab Venipuncture / Unknown 04/27/2022 4:07 AM CDT 04/27/2022 4:15 AM CDT Cherrie Walsh MD LAB - BLOOD BANK ORD ERABLES Performing Organization Address [facility]/ZIP Co de Phone Number [facility] BLOOD BANK LAB [address] [place] [address], [place] [phone] * LUCRECIA DIRECT C3 (04/27/2022 2:52 AM CDT) Anti-C3 Lucrecia POS 04/27/2022 3:29 AM CDT [facility] B[facility] LAB Blood BLOOD SPECIMEN / Unknown Lab Venipuncture / Unknown 04/27/2022 2:52 AM CDT 04/27/2022 3:05 AM CDT Pedro Whaley MD LAB - BLOOD BANK ORDERABLES Performing Organization Address [facility]/ZIP Co de Phone Number [facility] B[facility] [address] [place] [address], [place] [phone] * LUCRECIA DIRECT IGG (04/27/2022 2:52 AM CDT) IgG Lucrecia NEG 04/27/2022 3:29 AM CDT [facility] BLOOD BANK LAB Blood BLOOD SPECIMEN / Unknown Lab Venipuncture / Unknown 04/27/2022 2:52 AM CDT 04/27/2022 3:05 AM CDT Pedro Whaley MD LAB - BLOOD BANK ORDERABLES Performing Organization Address City/[facility]/ZIP Co de Phone Number [facility] BLOOD [facility] LAB [address] [place] [address], [place] [phone] * TYPE + SCREEN PANEL (04/27/2022 2:52 AM CDT) Antibody Screen NEG 3:41 AM CDT [facility] BLOOD B[facility] LAB ABO Rh A POS 04/27/2022 3:41 AM CDT [facility] BLOOD BANK LAB Blood Bank BLOOD SPECIMEN / Unknown Lab Venipuncture / Unknown 04/27/2022 2:52 AM CDT 04/27/2022 3:05 AM CDT Pedro Whaley MD LAB - BLOOD BANK ORDERABLES Performing Organization Address City/[facility]/ZIP Co de Phone Number [facility] BLOOD B[facility] LAB [address] [place] [address], [place] [phone] * DIRECT LUCRECIA (04/27/2022 2:52 AM CDT) Direct Lucrecia (DOYLE) POS 04/27/2022 3:29 AM CDT [facility] BLOOD BANK LAB Blood BLOOD SPECIMEN / Unknown Lab Venipuncture / Unknown 04/27/2022 2:52 AM CDT 04/27/2022 3:05 AM CDT Pedro Whaley MD LAB - BLOOD BANK ORDERABLES Performing Organization Address City/[facility]/ZIP Co de Phone Number [facility] B[facility]OD [facility] LAB [address] [place] [address], [place] [phone] * FOLATE (04/27/2022 2:52 AM CDT) Folate 10.9 7.0 - 31.4 ng/mL 04/27/2022 4:43 AM CDT [facility] Blood BLOOD SPECIMEN / Unknown Lab Venipuncture / Unknown 04/27/2022 2:52 AM CDT 04/27/2022 3:01 AM CDT Pedro Whaley MD LAB - CHEMISTRY ORDERABLES Performing Organization Address City/[facility]/ZIP Co de Phone Number [facility] [address] [place] [address], [place] [phone] * VITAMIN B12 (04/27/2022 2:52 AM CDT) Vitamin B12 779 213 - 816 pg/mL 04/27/2022 4:43 AM CDT [facility] Blood BLOOD SPECIMEN / Unknown Lab Venipuncture / Unknown 04/27/2022 2:52 AM CDT 04/27/2022 3:01 AM CDT Pedro Whaley MD LAB - CHEMISTRY ORDERABLES [facility] [address] [place] [address], [facility] [phone] * FLOW CYTOMETRY BLOOD PROFILE (04/26/2022 11:37 PM CDT) Case Report Flow Cytometry Case: [id number] Authorizing Provider: Pedro Whaely MD Collected: 04/26/2022 11:37 PM Ordering Location: [address] Received: 04/27/2022 10:06 AM Pathologist: Ting Mcmahon Mai, DO Specimen: Blood 04/27/2022 2:09 PM CDT [facility] Final Diagnosis Peripheral blood, flow cytometric immunophenotypic analysis: - No evidence of non-Hodgkin lymphoma or high-grade myeloid neoplasm - See interpretation 04/27/2022 2:09 PM CDT [facility] Flow Cytometry Results Differential Result Comment WBC Count /uL 18,000 Total Viability % 98.0 Lymphocytes % 2 Dim CD45 Region % 0 Monocytes % 4 Granulocytes % 94 04/27/2022 2:09 PM CDT [facility] Flow Cytometry Interpretation The peripheral blood specimen has a viability of 98%. The lymphocyte, dim CD45, monocyte, and granulocyte pabon are normal in relative proportion. Within the lymphocyte gate, there is no monotypic B-cell population identified (kappa: lambda ratio = 1.0:1). There is no expanded T-cell population seen. There is no detectable blast population identified. A peripheral blood smear prepared from the flow cytometry specimen is reviewed for software quality specialist purposes. Overall, the peripheral blood specimen shows no evidence of involvement by a non-Hodgkin lymphoma or a high-grade myeloid neoplasm. Correlation with clinical findings is required. 04/27/2022 2:09 PM CDT [facility] Reason for test Idiopathic hemolytic anemia 283.9 04/27/2022 2:09 PM CDT [facility] Client Specimen ID # [id number] 04/27/2022 2:09 PM CDT [facility] Disclaimer Test performed at [facility], [address], [place], [address]. *The established laboratory minimum viability is 70%. Values below the minimum may result in the failure to find an abnormal population of cells. This test was developed and its performance characteristics determined by the Flow Cytometry Laboratory. It has not been cleared by the [place] Food and Drug Administration (FDA). The FDA has determined that such clearance or approval is not necessary. This test is used for clinical purposes. It should not be regarded as investigational or for research. This laboratory is regulated under the Clinical Laboratory Improvement Amendments of 1998 (CLIA) as a qualified to perform high complexity clinical testing. 04/27/2022 2:09 PM CDT [facility] Embedded Images 2:09 PM CDT [facility] Number of markers 10 were performed. A-2 Flow CD10 A-3 Flow CD13 A-5 Flow CD20 A-1 Flow CD5 A-4 Flow CD19 A-6 Flow CD33 A-7 Flow CD34 A-8 Flow CD45 A-9 Nye+CD19+ A-10 Lambda+CD19+ 04/27/2022 2:09 PM T [facility] Blood BLOOD SPECIMEN / Unknown Lab Venipuncture / Unknown 04/26/2022 11:37 PM CDT 04/27/2022 10:06 AM CDT Pedro Whaley MD LAB - PATHOLOGY/ CYTOLOGY ORDERABLES [facility] [address] [phone] * PTT [facility] (04/26/2022 11:37 PM CDT) APTT 25.4 23.0 - 38.4 Seconds 04/27/2022 12:41 AM CDT [facility] Comment:Suggested therapeuti c range for full dose I.V. unfractionated heparin therapy for venous thromboembolism is 71 to 109 seconds. Blood BLOOD SPECIMEN / Unknown Lab Venipuncture / Unknown 04/26/2022 11:37 PM CDT 04/27/2022 12:03 AM CDT Pedro Whaley MD LAB - COAGULATIO N ORDERABLES Performing Organization Address City/[facility]/ZIP Co de Phone Number [address] [address], [place] [phone] * (ABNORMAL) PT-INR [facility] (04/26/2022 11:37 PM CDT) PT 16.8(H) 12.1 - 14.8 Seconds 04/27/2022 12:40 AM CDT [facility] INR 1.4 See Comment 04/27/2022 12:40 AM CDT [facility] Comment:The suggested therap eutic range for standard coumadin (warfarin) therapy is an INR of 2.0-3.0. For high-risk patients (Mechanical Mitral Valve Prosthesis, etc.), the suggested prophylactic therapeutic range is an INR of 2.5-3.5. Blood BLOOD SPECIMEN / Unknown Lab Venipuncture / Unknown 04/26/2022 11:37 PM CDT 04/27/2022 12:03 AM CDT Pedro Whaley MD LAB - COAGULATIO N ORDERABLES Performing Organization Address [facility]/ZIP Co de Phone Number [address] [address], [place] [phone] * (ABNORMAL) URIC ACID BLOOD (04/26/2022 11:37 PM CDT) Uric Acid 9.1(H) 3.5 - 7.2 mg/dL 04/27/2022 12:35 AM CDT [facility] Blood BLOOD SPECIMEN / Unknown Lab Venipuncture / Unknown 04/26/2022 11:37 PM CDT 04/27/2022 12:08 AM CDT Pedro Whaley MD LAB - CHEMISTRY ORDERABLES Performing Organization Address City/[facility]/ZIP Co de Phone Number [address] [address], [place] [phone] * (ABNORMAL) D-DIMER (04/26/2022 11:37 PM CDT) D-Dimer Quantitative 8.34(H) <=0.50 mcg/mL FEU 04/27/2022 12:49 AM CDT [facility] Comment: In the absence of clinical symptoms, a value less than or equal to 0.5 mcg/mL FEU significantly decreases the probability of PE/DVT (negative predictive value >95%). 1 mcg/mL FEU = 1 Fibrinogen Equivalent Unit (approximates 0.5 mcg/ml of D- Dimer). ISTH DIAGNOSTIC SCORING SYSTEM FOR DIC Score 0 1 2 3 Platelet Count(x10^3/uL) > 100 < 100 < 50 N/A PT Prolongation above upper limit of normal 0-3 3-6 > 6 N/A range (seconds) Fibrinogen (mg/dL) > 100 < 100 N/A N/A D-Dimer (mcg/mL FEU) < 0.50 N/A 0.50-5.0 > 5 Calculate Cumulative Score: > or = 5 :compatible with overt DIC < 5 :suggestive for non-overt DIC N/A = Non applicable Reference: Br. J. Haematol. 145:24-33,2009. Blood BLOOD SPECIMEN / Unknown Lab Venipuncture / Unknown 04/26/2022 11:37 PM CDT 04/27/2022 12:03 AM CDT Pedro Whaley MD LAB - COAGULATIO N ORDERABLES Performing Organization Address City/[facility]/ZIP Co de Phone Number [address] [address], [facility] [phone] * (ABNORMAL) FIBRINOGEN ACTIVITY (04/26/2022 11:37 PM CDT) Pathologist [facility] Fibrinogen Clauss 192(L) 200 - 400 mg/dL 04/27/2022 12:30 AM CDT [facility] Blood BLOOD SPECIMEN / Unknown Lab Venipuncture / Unknown 04/26/2022 11:37 PM CDT 04/27/2022 12:03 AM CDT Pedro Whaley MD LAB - COAGULATIO N ORDERABLES [address] [address], [place] [phone] * (ABNORMAL) RETIC COUNT (04/26/2022 11:37 PM CDT) Reticulocyte % 5.3(H) 0.4 - 2.5 % 04/27/2022 12:12 AM CDT [facility] Reticulocyte Absolute 0.1026 0.0200 - 0.1300 10 6/uL 04/27/2022 12:12 AM CDT [facility] Reticulocyte Immature Fractionated 46.2(H) 0.9 - 14.3 % 04/27/2022 12:12 AM CDT [facility] Hemoglobin Retic 37.7(H) 27.8 - 36.8 pg 04/27/2022 12:12 AM CDT [facility] Blood BLOOD SPECIMEN / Unknown Lab Venipuncture / Unknown 04/26/2022 11:37 PM CDT 04/27/2022 12:08 AM CDT Pedro Whaley MD LAB - HEMATOLOGY ORDERABLES Performing Organization Address City/[facility]/ZIP Co de Phone Number [address] [address], [facility] [phone] * (ABNORMAL) HAPTOGLOBIN (04/26/2022 11:37 PM CDT) Haptoglobin <8(L) 14 - 258 mg/dL 04/27/2022 12:27 AM CDT [facility] Blood BLOOD SPECIMEN / Unknown Lab Venipuncture / Unknown 04/26/2022 11:37 PM CDT 04/27/2022 12:03 AM CDT Pedro Whaley MD LAB - CHEMISTRY ORDERABLES Performing Organization Address City/[facility]/ZIP Co de Phone Number [address] [address], [place] [phone] * GROSS + MICRO EXAM (11/16/2007 3:15 PM CDT) Result CASE NUMBER [id number] Comment: ORDERING PHYSICIAN TONY SALVADOR SPECIMEN TYPE Stone For Analysis-Right Ureteral Date of Surgery 11/16/[address] Salvador SPECIMEN SOURCE Right ureteral calculus. *Pre Op Dx Right ureteral calculus. GROSS DESCRIPTION Received without fixative labeled right ureteral calculus is a specimen consisting of a single brown rough surfaced calculus 1 mm. in maximum dimension. All submitted for chemical analysis. Grossed by PRETTY ESPINOZA M.D. Read by PRETTY ESPINOZA M.D. DIAGNOSIS RIGHT URETERAL CALCULUS - CALCULUS RECEIVED AND ENTIRELY SUBMITTED FOR CHEMICAL ANALYSIS (GROSS ONLY). RELEASED BY PRETTY ESPINOZA MD MISCELLANEOUS SAMPLES / Unknown 11/16/2007 3:15 PM CDT 11/17/2007 9:58 AM CDT Historical Provider LAB - PATHOLOGY/C YTOLOGY ORDERABLES
--- OUTSIDE RECORDS SUMMARY | 2024-09-21 09:00 | XMS_ITS | Clinical Summary ---
Author Organization [facility] Address [address] [place] [id number] Care Team Providers Care Director Consumer Name Role Phone Todd Jett DO Primary Care Provider [phone] Allergies No known active allergies Medications Medication Sig Dispensed Refills Start Date End Date Status aspirin 81 MG EC tablet Take 1 tablet (81 mg) by mouth daily Active famotidine (PEPCID) 20 MG tablet Take 1 tablet (20 mg) by mouth 04/30/2022 Active fenofibrate 160 MG tabletIndications:H yperlipidemia, unspecified hyperlipidemia type Take 1 tablet by mouth once daily 90 tablet 3 10/31/2023 5 Active lisinopril-hydrochl orothiazide (PRINZIDE, ZESTORETIC) 20-25 MG per tabletIndications:E ssential hypertension Take 1 tablet by mouth daily 90 tablet 1 05/01/2024 5 Active metoprolol tartrate (LOPRESSOR) 100 MG tabletIndications:E ssential hypertension TAKE 1/2 (ONE-HALF) TABLET BY MOUTH TWICE DAILY FOR HIGH BLOOD PRESSURE 90 tablet 07/09/2024 5 Active folic acid (FOLVITE) 1 MG tablet Take 1 tablet by mouth once daily 90 tablet 08/15/2024 6 Active metFORMIN (GLUCOPHAGE) 500 MG tabletIndications:T ype 2 diabetes mellitus without complication, without long-term current use of insulin (HCC) Take 1 tablet (500 mg) by mouth 2 times daily (with meals) 180 tablet 1 09/03/2024 5 Active metFORMIN (GLUCOPHAGE) 500 MG tabletIndications:T ype 2 Diabetes Mellitus Take 1 tablet (500 mg) by mouth 2 times daily (with meals) Indications: Type 2 Diabetes 180 tablet 1 03/08/2024 Discontinued Active Problems Problem Noted Date Diagnosed Date Elevated TSH 08/20/2024 Shoulder pain 08/20/2024 Screening for depression 06/18/2024 Assessment & Plan (06/18/2024 5:21 PM SIGNAL MAINTENANCE TECHNICIAN): Orders: [place] DEPRESSION SCREEN ANNUAL Encounter for screening invo lving social determinants of health (SDoH) 06/18/2024 Assessment & Plan (06/18/2024 5:21 PM SIGNAL MAINTENANCE TECHNICIAN): Medicare annual wellness visit, subsequent 06/18 Assessment & Plan (06/18/2024 5:21 PM SIGNAL MAINTENANCE TECHNICIAN): Chronic left shoulder pain 02/16/2024 Hypoproliferative anemia 05/04/2022 Diabetes mellitus type II, c ontrolled, with no complications 05/04/2022 Hypocalcemia 05/04/2022 Hypophosphatemia 05/04/2022 Immune thrombocytopenia 05/04/2022 Obesity 05/04/2022 Monoclonal gammopathies 05/04/2022 Transaminitis 05/04/2022 Autoimmune hemolytic anemia 04/26/2022 Hypertension Hyperlipidemia Hyperglycemia Encounters Date Type Department Care Team Description 09/19/2024 9:30 AM SIGNAL MAINTENANCE TECHNICIAN Lab/X-Ray Only [facility] [address] [place] [address] Todd Jett DO Elevated TSH; Controlled type 2 diabetes mellitus without complication, unspecified whether superintendent terminal insulin use (HCC) 09/03/2024 Refill [facility] [address] [place] [address] Todd Jett DO Medication Refill 08/20/2024 4:20 PM SIGNAL MAINTENANCE TECHNICIAN Office Visit [facility] [address] [place] [address] Todd Jett DO Shoulder pain, unspecified chronicity, unspecified laterality (Primary Dx); Elevated TSH; Controlled type 2 diabetes mellitus without complication, unspecified whether superintendent terminal insulin use (HCC) 08/15/2024 9:15 AM SIGNAL MAINTENANCE TECHNICIAN Lab/X-Ray Only [facility] [address] [place] [phone] Todd Jett DO Essential hypertension; Type 2 diabetes mellitus without complication, without long-term current use of insulin (HCC); Hyperlipidemia, unspecified hyperlipidemia type; Prostate cancer screening 08/15/2024 Orders Only [address] [phone] Todd Jett DO Essential hypertension (Primary Dx); Type 2 diabetes mellitus without complication, without long-term current use of insulin (HCC); Hyperlipidemia, unspecified hyperlipidemia type; Prostate cancer screening 08/14/[address] [phone] Todd Jett DO Medication Refill 07/08/[address] [phone] Todd Jett DO Medication Refill from Last 3 Months Immunizations Name Administration Dates Next Due Covid-19 28 Day Interval Moderna 06/07/2021,030 11/2020,09/11/2020 Covid-19 Moderna Bivalent Andrey mundo 12+ Yrs 08/16/2022 Covid-19 Moderna Booster Half Dose 11/24/2021 Covid-19, Moderna, 12+, LNP- S, PF 50 mcg/0.5mL 05/04/2023 Influenza =>65yo, High Dose, Preservative Free 05/10/2024 Influenza Quadrivalent, Pres ervative Free 05/10/2024,04/28/2023,04/09/2022,2020,05/11/2019,05/28/2018,08/21/2017,1 09/03/2015 Influenza, RIV3, Preservative Free 05/06/2020 Influenza, Seasonal Vaccine 04/09/2022 Pneumococcal Conjugate Pcv20 04/09/2022 Zoster (Shingles) 08/15/2014 Family History Medical History Relation Name Comments High Cholesterol Brother Myke Hypertension Brother Myke Diabetes Father Corwin Heart Disease Father Corwin Heart Failure Father Corwin High Cholesterol Father Corwin Hypertension Father Corwin Other (See Comments) Father Corwin gout Hypertension Mother Theo No Known Problems Sister Relation Name Status Comments Brothbobo Stringer Alive Father Corwin Mother Theo Alive Sister Social History Tobacco Use Types Packs/Day Years Used Date Smoking Tobacco: Never Smokeless Tobacco: Former Chew Quit: 1998 Tobacco Cessation:Counseling Given: Not Answered Alcohol Use Standard Drinks/Week Comments Yes 1 (1 standard drink = 0.6 oz pur e alcohol) [facility] Utilities Answer Date Recorded In the past 12 months has [facility] [employer], gas, oil, or water [employer] threatened to shut off services in your home? No 02/13/2024 Humiliation, Afraid, Rape, and Kick questionnair e Answer Date Recorded Within the last year, have y ou been afraid of your partner or ex-partner? No 06/18/2024 Within the last year, have y ou been humiliated or emotionally abused in other ways by your partner or ex-partner? No Within the last year, have y ou been kicked, hit, slapped, or otherwise physically hurt by your partner or ex-partner? No 06/18/2024 Within the last year, have y ou been raped or forced to have any kind of sexual activity by your partner or ex-partner? No 06/18/2024 PHQ-2 Answer Date Recorded PHQ-2 Score 0 06/18/2024 Hunger Vital Sign Answer Date Recorded Within the past 12 months, y ou worried that your food would run out before you got the money to buy more. Never true 06/18/20 24 Within the past 12 months, t he food you bought just didn't last and you didn't have money to get more. Never true 06/18/2024 PRAPARE - Transportation Answer Date Re corded In the past 12 months, has l ack of transportation kept you from medical appointments or from getting medications? No 06/08 In the past 12 months, has l ack of transportation kept you from meetings, work, or from getting things needed for daily living? No 06/18/2024 Housing Stability Vital Sign Answer Jaskaran e Recorded In the last 12 months, was t here a time when you were not able to pay the mortgage or rent on time? No 02/13/2024 In the last 12 months, how many places have you lived? 1 02/13/2024 In the last 12 months, was t here a time when you did not have a steady place to sleep or slept in a snf (including now)? No 02/13/2024 Housing Stability Vital Sign Answer Jaskaran e Recorded In the last 12 months, was t here a time when you were not able to pay the mortgage or rent on time? No 06/18/2024 In the past 12 months, how m any times have you moved where you were living? 1 06/18/2024 At any time in the past 12 m [facility], were you homeless or living in a snf (including now)? No 06/18/2024 Alcohol Use Answer Date Recorded Frequency of Alcohol Consumption Not on file 06/18/2024 Average Number of Drinks Not on file 024 Frequency of Binge Drinking Not on file 06/08 Alcohol Use Status Yes 06/18/2024 Average alcohol consumption .6 06/08 Sex and Gender Information Value Date Recorded Sex Assigned at Not on file Gender Identity Not on file Sexual Orientation Not on file Last Filed Vital Signs Vital Sign Reading Time Taken Comments Blood Pressure 140/70 08/20/2024 4:29 PM SIGNAL MAINTENANCE TECHNICIAN Pulse 75 08/20/2024 4:29 PM SIGNAL MAINTENANCE TECHNICIAN Temperature 36.9 C (98.4 F) 08/20/2024 4:29 PM SIGNAL MAINTENANCE TECHNICIAN Respiratory Rate 18 08/20/2024 4:29 PM SIGNAL MAINTENANCE TECHNICIAN Oxygen Saturation 96% 08/20/2024 4:29 PM SIGNAL MAINTENANCE TECHNICIAN Inhaled Oxygen Concentration - - Weight 92.1 kg (203 lb) 08/20/2024 4:29 PM SIGNAL MAINTENANCE TECHNICIAN Height 172.7 cm (5' 8 ) 06/18/2024 4:08 PM SIGNAL MAINTENANCE TECHNICIAN Body Mass Index 30.87 06/18/2024 4:08 PM SIGNAL MAINTENANCE TECHNICIAN Plan of Treatment Upcoming Encounters Date Type Department Care Team ([facility] Contact Info) Description 02/18/2025 4:20 PM CDT [facility] [address] [place] [phone] Todd Jett DO [address] [facility] [place] [address] Health Maintenance Due Date Last Done Comments Diabetic Eye Exam 1955 URINARY MICROALBUMIN IN DIABETES 09/27/2023 09/27/2022 COVID-19 Immunization ( season) 2024 05/04/2023, 08/16/2022, 11/24/2021, Additional history exists Diabetes follow-up every 6 months by HEMOGLOBIN A1C 02/12/2025 08/15/2024, 02/07/2024, 08/09/2023, Additional history exists ADULT TETANUS 05/06/2025 Postponed from 1975 (Patient defers for now but may consider at later date) BMI Above/Below Normal Parameters 06/18/2025 06/18/2024, 06/18/2024, 09/09/2022, Additional history exists Colon Cancer Screening 06/18/2025 Postp oned from 2001 (Patient defers for now but may consider at later date) DEPRESSION SCREENING 06/18/2025 06/18/2024, 06/15/2023, 09/09/2022, Additional history exists DIABETIC FOOT EXAM 06/18/2025 06/18/2024, 06/18/2024 Fall Risk Assessment 06/18/2025 06/18/2024, 06/15/2023, 09/09/2022 Medicare Annual Wellness (AWV) 06/18/2025 06/18/2024, 09/09/2022 RSV Vaccines (1 - Risk 60-74 years 1-dose series) 06/18/2025 Postponed fro m 2016 (Patient defers for now but may consider at later date) LIPID TESTING 08/15/2025 08/15/2024, 07/0 09/2023, 08/09/2023, Additional history exists Zoster Vaccine (Recombinant Vaccine) Discontinued 08/15/2014 Pneumococcal Vaccine: 65+ Years Completed 04/09/2022 Hepatitis C Screening ages 18 to 79 once Addressed 04/27/2022 (Done/Outside Provider) Overridden with the intention of not completing the topic Influenza Vaccine Completed 05/10/2024, , 04/28/2023, Additional history exists HEPATITIS A VACCINES Aged Out No long er eligible based on patient's age to complete this topic HEPATITIS B VACCINES Aged Out No long er eligible based on patient's age to complete this topic HIB VACCINES Aged Out No longer eligi ble based on patient's age to complete this topic HPV VACCINES Aged Out No longer eligi ble based on patient's age to complete this topic IPV VACCINES Aged Out No longer eligi ble based on patient's age to complete this topic MENINGOCOCCAL VACCINE Aged Out No dinah gabriela eligible based on patient's age to complete this topic ROTAVIRUS VACCINES Aged Out No longer eligible based on patient's age to complete this topic Procedures Procedure Name Priority Date/Time Associated Diagnosis Comments TSH THIRD GENERATION Routine 09/19/2024 9:21 AM SIGNAL MAINTENANCE TECHNICIAN Elevated TSH Controlled type 2 diabetes mellitus without complication, unspecified whether superintendent terminal insulin use (HCC) T3, TOTAL Routine 09/19/2024 9:21 AM SIGNAL MAINTENANCE TECHNICIAN Elevated TSH Controlled type 2 diabetes mellitus without complication, unspecified whether prison insulin use (HCC) T4 FREE Routine 09/19/2024 9:21 AM SIGNAL MAINTENANCE TECHNICIAN Elevated TSH Controlled type 2 diabetes mellitus without complication, unspecified whether superintendent terminal insulin use (HCC) PSA TOTAL, SCREEN Routine 08/15/2024 9:0 0 AM SIGNAL MAINTENANCE TECHNICIAN Prostate cancer screening TSH THIRD GENERATION Routine 08/15/2024 9:00 AM SIGNAL MAINTENANCE TECHNICIAN Essential hypertension Type 2 diabetes mellitus without complication, without long-term current use of insulin (HCC) HEMOGLOBIN A1C Routine 08/15/2024 9:00 AM SIGNAL MAINTENANCE TECHNICIAN Essential hypertension Type 2 diabetes mellitus without complication, without long-term current use of insulin (HCC) LIPID PROFILE Routine 08/15/2024 9:00 AM SIGNAL MAINTENANCE TECHNICIAN Essential hypertension Type 2 diabetes mellitus without complication, without long-term current use of insulin (HCC) Hyperlipidemia, unspecified hyperlipidemia type COMPREHENSIVE METABOLIC PANEL Routine 08/15/2024 9:00 AM SIGNAL MAINTENANCE TECHNICIAN Essential hypertension Type 2 diabetes mellitus without complication, without long-term current use of insulin (HCC) CBC W AUTO DIFF Routine 08/15/2024 9:00 AM SIGNAL MAINTENANCE TECHNICIAN Essential hypertension Type 2 diabetes mellitus without complication, without long-term current use of insulin (HCC) HM DIABETES FOOT EXAM Routine 06/18/2024 URINE, ALB/CREAT RATIO Routine 09/27/2022 9:23 AM SIGNAL MAINTENANCE TECHNICIAN Type 2 diabetes mellitus without complication, without long-term current use of insulin ([facility]) from Last 3 Months or Most Recently Relevant to Health Maintenance Results * TSH THIRD GENERATION (09/19/2024 9:21 AM SIGNAL MAINTENANCE TECHNICIAN) Only the most recent of2 resultswithin the time period is included. TSH 4.60 0.45 - 5.33 uIU/mL [facility] [employer] Comment: 0.05-3.70 FEMALES, 1ST TRIMESTER 0.31-4.35 FEMALES, 2ND TRIMESTER 0.41-5.18 FEMALES, 3RD TRIMESTER Blood 09/19/2024 9:21 AM SIGNAL MAINTENANCE TECHNICIAN 09/19/2024 9:26 AM SIGNAL MAINTENANCE TECHNICIAN Todd Jett DO CHEMISTRY ORDERABLE S [facility] [employer] [address] [place], [place] [address] * (ABNORMAL) T3, TOTAL (09/19/2024 9:21 AM SIGNAL MAINTENANCE TECHNICIAN) T3 Total 0.81(L) 0.87 - 1.78 NG/ML [facility] Comment: Values below the lower limit can be caused by a number of conditions including on-thyroidal illness, acute and chronic stress and hypothyroidism. Blood 09/19/2024 9:21 AM SIGNAL MAINTENANCE TECHNICIAN 09/19/2024 9:26 AM SIGNAL MAINTENANCE TECHNICIAN Todd Jett DO CHEMISTRY ORDERABLE S Performing Organization Address [facility] Co de Phone Number [facility] [address] [place] [address] * T4 FREE (09/19/2024 9:21 AM SIGNAL MAINTENANCE TECHNICIAN) Free T4 0.87 0.61 - 1.12 NG/DL [facility] Comment: 0.52-11.0 FEMALES, 1ST TRIMESTER 0.45-0.99 FEMALES, 2ND TRIMESTER 0.48-0.95 FEMALES, 3RD TRIMESTER Blood 09/19/2024 9:21 AM SIGNAL MAINTENANCE TECHNICIAN 09/19/2024 9:26 AM SIGNAL MAINTENANCE TECHNICIAN Todd Jett [employer] CHEMISTRY ORDERABLE S Performing Organization Address [facility] Phone Number [facility] [address] [place] [address] * PSA TOTAL, SCREEN (08/15/2024 9:00 AM SIGNAL MAINTENANCE TECHNICIAN) Prostate Specific Antigen Total 0.39 0 - 4.00 NG/ML [facility] PSA Comment SEE NOTES [facility] Comment: The Access [employer] PSA assay is a paramagnetic particle, chemiluminescent immunoassay for the quantitative determination of prostate specific antigen (PSA) levels in human serum using the Access Immunoassay Systems. Blood 08/15/2024 9:00 AM SIGNAL MAINTENANCE TECHNICIAN 08/15/2024 9:02 AM SIGNAL MAINTENANCE TECHNICIAN Todd Jett CHEMISTRY ORDERABLE S Performing Organization Address [facility] Co de Phone Number [facility] [address] [place] [address] * (ABNORMAL) CBC W AUTO DIFF (08/15/2024 9:00 AM SIGNAL MAINTENANCE TECHNICIAN) White Blood Cell Count 8.3 4.8 - 9.6 THOUS/uL [facility] Red Blood Cell Count 4.34 4.33 - 5.59 MIL/uL [facility] Hemoglobin 14.3 13.1 - 16.8 GM/DL [facility] Hematocrit 42.4 38.8 - 49.0 % [facility] Mean Corpuscular Volume 97.7(H) 82.7 - 94.4 FL [facility] Mean Corpuscular Hemoglobin 32.9(H) 27.7 - 32.6 PG [facility] Mean Corpuscular Hemoglobin Conc 33.7 32.4 - 35.7 G/DL [facility] Rdwcv 12.0 11.6 - 13.9 % [facility] Rdwsd 43.4 36.0 - 46.1 [facility] Platelet Count 255 154 - 364 THOUS/uL [facility] Mean Platelet Volume 11.1 8.7 - 11.7 [facility] Differential Type AUTO FE [facility] Neutrophils 64.5 34.0 - 67.9 % [facility] Lymphs 21.6 19.1 - 41.2 % [facility] Monocytes 8.8 6.1 - 12.3 % [facility] Eos 4.0 0.9 - 7.6 % [facility] Basos 0.7 0.2 - 1.5 % [facility] Neutrophils Absolute Count 5.4 2.7 - 5.8 THOUS/uL [facility] Lymphocytes Absolute Count 1.8 1.1 - 3.3 THOUS/uL [facility] Monocytes Absolute Count 0.7 0.4 - 0.9 THOUS/uL [facility] Eosinophils Absolute Count 0.3 0.1 - 0.6 THOUS/uL [facility] Basophils Absolute Count 0.1 0.0 - 0.1 THOUS/uL [facility] Imm Gran 0.4 0.2 - 0.9 % [facility] Abs Imm Gran 0.03 0.0 - 0.1 THOUS/uL [facility] Blood 08/15/2024 9:00 AM SIGNAL MAINTENANCE TECHNICIAN 08/15/2024 9:02 AM SIGNAL MAINTENANCE TECHNICIAN Todd Jett DO HEMATOLOGY ORDERABL ES Performing Organization Address [facility] Co de Phone Number [facility] [address] [place] [address] * (ABNORMAL) HEMOGLOBIN A1C (08/15/2024 9:00 AM SIGNAL MAINTENANCE TECHNICIAN) Hemoglobin A1C 6.7(H) <5.7 % [facility] Comment: Non-Diabetic <5.7 Prediabetes 5.7-6.4 Diabetes >/=6.5 Estimated Average Glucose 146(H) 68 - 114 MG/DL [facility] Blood 08/15/2024 9:00 AM SIGNAL MAINTENANCE TECHNICIAN 08/15/2024 9:02 AM SIGNAL MAINTENANCE TECHNICIAN Todd Jett DO CHEMISTRY ORDERABLE S Performing Organization Address [facility] Co de Phone Number [facility] [address] [place] [address] * (ABNORMAL) LIPID PROFILE (08/15/2024 9:00 AM SIGNAL MAINTENANCE TECHNICIAN) Cholesterol 158 0 - 200 MG/DL [facility] Triglycerides 383(H) <150 MG/DL [facility] HDL 26 23 - 92 MG/DL [facility] LDL Cholesterol 55 <130 MG/DL [facility] LDL/HDL Ratio 2.12 [facility] VLDL, Calc 77(H) 5 - 40 MG/DL [facility] LDL, High Risk ========= ========= ========= [facility] Comment: RELATIVE RISK MALE FEMALE 1/2 AVERAGE 1.00 1.47 AVERAGE 3.55 3.22 2X AVERAGE 6.25 5.03 3X AVERAGE 7.99 6.14 AN AVERAGE RISK RATIO INFERS A 10% LIKELIHOOD OF SIGNIFICANT CAD BY AGE 60. OTHER RISK FACTORS SUCH GLUCOSE INTOLERANCE, SMOKING HISTORY, HYPERTENSION AND OBESITY WILL FURTHER MODIFY THE RELATIVE RISK RATIO. Blood 08/15/2024 9:00 AM SIGNAL MAINTENANCE TECHNICIAN 08/15/2024 9:02 AM SIGNAL MAINTENANCE TECHNICIAN Todd Jett DO CHEMISTRY ORDERABLE S [facility] [address] * (ABNORMAL) COMPREHENSIVE METABOLIC PANEL (08/15/2024 9:00 AM SIGNAL MAINTENANCE TECHNICIAN) Glucose 130(H) 74 - 109 MG/DL [facility] Blood Urea Nitrogen 20 7 - 25 MG/DL [facility] Creatinine 1.1 0.6 - 1.3 MG/DL [facility] Sodium 138 136 - 145 MMOL/L [facility] Potassium 4.5 3.5 - 5.1 MMOL/L [facility] Chloride 105 98 - 107 MMOL/L [facility] Co2 26 21 - 31 MMOL/L [facility] Calcium 9.8 8.6 - 10.3 MG/DL [facility] Protein Total 6.8 6.4 - 8.9 G/DL [facility] Albumin 4.6 3.5 - 5.7 G/DL [facility] A/G Ratio 2.1(H) 0.8 - 2.0 [facility] Alkaline Phosphatase 34 34 - 104 U/L [facility] Alt (SGPT) 47 7 - 52 U/L [facility] AST(SGOT) 38 13 - 39 U/L [facility] Bilirubin, Total 0.6 0.3 - 1.0 MG/DL [facility] Est GFR 74(L) >90 ML/MIN/1. 73sq.m [facility] GFR Comment IF PATIENT IS [facility] Comment: [place], MULTIPLY RESULT BY 1.16 Blood 08/15/2024 9:00 AM SIGNAL MAINTENANCE TECHNICIAN 08/15/2024 9:02 AM SIGNAL MAINTENANCE TECHNICIAN Todd Jett DO CHEMISTRY ORDERABLE S [facility] [address] [place] [address] * HM DIABETES FOOT EXAM (06/18/2024) Diabetic Foot Exam Status Normal Normal Historical Provider MD MELINDA SALEH E * URINE, ALB/CREAT RATIO (09/27/2022 9:23 AM SIGNAL MAINTENANCE TECHNICIAN) URINE PERIOD [facility] URINE VOLUME [facility] ALBUMIN MG/DL 0.5 mg/dL [facility] ALBUMIN MG/DAY Not Applicable 2 - 30 mg/d [facility] ALBUMIN UG/MINUTE Not Applicable 0 - 20 ug/min [facility] CREAT, URINE PER VOLUME 67 mg/dL [facility] Alb/Creat Ratio 7 0 - 30 mg/g [facility] CREAT UR PER 24HR Not Applicable (NOTE) Performed By: [employer] [address] [place] [address] Surgical Oncologist: Shay Hargrove MD, PhD 800 - 2100 mg/d [facility] 09/27/2022 9:23 AM SIGNAL MAINTENANCE TECHNICIAN 09/27/2022 9:25 AM SIGNAL MAINTENANCE TECHNICIAN Ander Perry [facility] SEND OUT ORDERAB LES [email or web address] [address] [place], [place] [id number] [place] [address] [facility]ORATORY - [facility] [address] [place] [address] from Last 3 Months or Most Recently Relevant to Health Maintenance Care Teams Director Consumer Relationship Specialty Start Date End Date Todd Jett DO [address] [facility] [place] [phone] PCP - General Family Medicine 08/18/23
[2024-09-21 09:12] LABS: Basophils Absolute Auto 0.1 K/mm3 (0.0-0.1); Basophils Percent Auto 0.8 % (0.2-1.2); Eosinophils Absolute Auto 0.4 K/mm3 (0-0.3); Eosinophils Percent Auto 4.7 % (0-4.4); Hematocrit 41.5 % (42.0-52.0); Hemoglobin 14.1 g/dL (14.0-18.0); Immature Granulocyte Absolute 0.04 K/mm3 (0.00-0.031); Immature Granulocyte Percent A 0.5 % (0-0.5); Lymphocytes Absolute Auto 1.57 K/mm3 (0.9-3.2); Lymphocytes Percent Auto 21.3 % (18.3-44.2); Mean Corpuscular Hemoglobin 32.8 pg (26-34); Mean Corpuscular Volume 96.5 fl (80-100); Mean Platelet Volume 10.3 fl (7.4-10.4); Monocytes Absolute Auto 0.7 K/mm3 (0.1-0.6); Monocytes Percent Auto 9.8 % (2.6-8.5); Neutrophils Absolute Auto 4.6 K/mm3 (1.3-6.7); Neutrophils Percent Auto 62.9 % (45.5-73.1); Platelet Count Result 235 k/mm3 (150-375); Red Cell Distribution Width 11.9 % (11.5-14.5); White Blood Count 7.4 K/mm3 (4.5-10.0)
[2024-09-21 09:15] LABS: Blood Urea Nitrogen 19 mg/dL (8-26); Carbon Dioxide 21 mmol/L (22-30); Chloride 106 mmol/L (98-109); Estimated Glomerular Filt Rate > 60; Glucose 111 mg/dL (70-105); Ionized Calcium (POC) 1.27 mmol/L (1.11-1.31); Potassium 3.8 mmol/L (3.5-4.9); Sodium 138 mmol/L (138-146)
== END 2024-09-21 08:52 | disposition home or self-care (01) ==
LOC: ANHLAB 08:54
PROVIDERS: Visit Provider Internal Medicine Hematology & Oncology
DX: D59.9 Acquired hemolytic anemia, unspecified (principal)
CPT/HCPCS: 36415; 80047; 85025